=== PATIENT | male | born 1940 | race Hispanic/Latino ===

== ENCOUNTER 2017-10-16 09:12 | Inpatient (IN) | payer MEDICARE ==
[2017-10-16] MEDS ORDERED: NACL 0.9% 500 ML 500 ML IV ONE (09:32)
[2017-10-16] MEDS ORDERED: ZOSYN/NS 4.5GM/100ML 4.5 GM/100 ML VIAL IV ONE (10:09)
[2017-10-16] MEDS ORDERED: NACL 0.9% 1000 ML 1,000 ML IV ONE (10:09)
[2017-10-16] MEDS ORDERED: TYLENOL PR ONE (10:10)
--- NOTE | 2017-10-16 10:15 | Emergency Department Report ---
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 Cholecystectomy and probable appendectomy. Transcribed By: TTR Dictated By: KATTY BENJAMIN JR, MD Electronically Authenticated By: KATTY BENJAMIN JR, MD Signed Date/Time: 10/16/171323 DD/ 20 TD/TT: 10/16/171323 - Medical Decision Making discuss with Dr Odonnell, I presented patient to him , he agreed to admit to his service. Critical Care Time: Yes Critical care time in (mins) excluding proc time.: 45 Critical care attestation.: If time is entered above; I have spent that time in minutes in the direct care of this critically ill patient, excluding procedure time. ED Disposition Clinical Impression: Sepsis, Right lower lobe pneumonia Disposition: DC OP ADMIT IP TO THIS HOSP Is pt being admited?: Yes Condition: Stable Instructions: Bacterial Pneumonia (ED) Referrals: PRIMARY CARE, [Primary Care Provider] - 3-5 Days
[2017-10-16 10:31] LABS: Hematocrit 43.8 % (35.5-45.6); Hemoglobin 14.7 gm/dl (11.8-15.2); Mean Corpuscular HGB Conc 34 % (32-34); Mean Corpuscular Hemoglobin 31 pg (28-32); Mean Corpuscular Volume 91 fl (84-94); Platelet Count 213 K/mm3 (140-440); Red Blood Count 4.81 M/mm3 (3.65-5.03); Red Cell Distribution Width 14.9 % (13.2-15.2); White Blood Count 20.6 K/mm3 (4.5-11.0)
[2017-10-16 10:43] LABS: ISTAT Base Excess -1; ISTAT HCO3 22.8; ISTAT PCO2 33.3 (35-45); ISTAT PH 7.443 (7.35-7.45); ISTAT PO2 87 (80-105); ISTAT SO2 97; ISTAT TCO2 24
[2017-10-16 10:55] LABS: Albumin 3.6 g/dL (3.9-5); Albumin/Globulin Ratio 0.9 %; Calcium 8.9 mg/dL (8.4-10.2); Chloride 106.6 mmol/L (98-107); Magnesium 2.4 mg/dL (1.7-2.3); Potassium 3.9 mmol/L (3.6-5.0); Total Protein 7.5 g/dL (6.3-8.2)
[2017-10-16 11:09] LABS: INR 2.16 (0.87-1.13)
--- NOTE | 2017-10-16 11:18 | XRay Report ---
AP CHEST: HISTORY: Sepsis No comparison. Previous CABG changes are noted. There is poor inspiration. AP view of the chest demonstrates a normal mediastinal and cardiac contour with clear lungs and normal bony and soft tissue structures. IMPRESSION: No acute cardiopulmonary process identified.
--- NOTE | 2017-10-16 11:20 | Cat Scan Report ---
CT HEAD WITHOUT CONTRAST: HISTORY: Altered mental status. TECHNIQUE: Sequential 2.5mm CT images. COMPARISON: none. FINDINGS: No comparison. Mild diffuse cortical volume loss and mild nonspecific chronic white matter changes are identified. No evidence for hemorrhage, mass or extra-axial fluid collection. No large area of acute ischemia is appreciated. Right craniotomy changes are noted, correlate with history. There is a focal area of cortical encephalomalacia in the right frontal lobe which is probably related to surgery. The visualized sinuses and mastoid air cells are well-aerated. IMPRESSION: Volume loss. Chronic white matter changes. Postsurgical changes as described. No acute intracranial process is identified.
[2017-10-16 11:26] LABS: Basophils % (Manual) 0 % (0.0-1.8); Blastocytes % (Manual) 0 %; Diff Status Complete; Eosinophils % (Manual) 0 % (0.0-4.3); Platelet Estimate Consistent w Auto; RBC Morphology Normal
[2017-10-16 11:34] LABS: Urine Drugs of Abuse Note Disclamer
[2017-10-16 11:57] LABS: Bacteria,Urine 1+ /HPF (Negative); Bilirubin,Urine NEG (Negative); Blood,Urine LG (Negative); Ketones,Urine TR mg/dL (Negative); Leukocyte Esterase,Urine NEG (Negative); Mucus,Urine 2+ /HPF; Nitrite,Urine NEG (Negative)
--- NOTE | 2017-10-16 13:28 | Cat Scan Report ---
CT ABDOMEN PELVIS WITHOUT CONTRAST: HISTORY: Abdominal pain, fever, elevated liver enzymes. COMPARISON: none. TECHNIQUE: Helical CT in 1.25mm intervals without IV contrast. Sagittal and coronal reconstructions. FINDINGS: Lung bases: There is mild patchy airspace disease at the right lung base. Right lower lobe pneumonia could be considered. Left lung base is clear. Heart size is normal. Liver: normal. Biliary system: Cholecystectomy. No biliary dilatation. Pancreas: normal. Spleen: normal. Kidneys/ureters/bladder: normal. Adrenal glands: normal. Aorta: Mild diffuse calcifications without aneurysm. Intestines: No evidence for bowel obstruction or focal inflammation. Appendix: Not confidently identified, correlate with surgical history. Pelvic viscera: normal. Musculoskeletal: Mild osteopenia is suspected. Degenerative changes. No fracture or suspicious bony lesion. IMPRESSION: Patchy airspace disease at the right lung base which could represent pneumonia, correlate with the patient's clinical presentation. No acute inflammatory process is appreciated in the abdomen or pelvis. Cholecystectomy and probable appendectomy.
--- NOTE | 2017-10-16 13:38 | History and Physical Report ---
History of Present Illness Chief complaint: confusion, not acting right History of present illness: 77 YO Male resident at [facility] with Dementia, GERD, HLD, CAD, Hypothyroidism, TBI in 2006, Chronic Constipation, Pseudobulbar Effect presents to ED for evaluation. Pt stuporous, and unable to provide history, but history taken from daughter who is at bedside during exam and interview. As per daughter, pt was found to have fever to 102.6 as per [place] staff. Over the past 24 hours, pt has also been increasingly confused with decreased interaction. Upon waking today, the patient was lethargic. EMS notified and patient transported to [facility] for evaluation. Pt seen and evaluated in ED. Pt found to have Aspiration Pneumonia and respiratory failure complicated by Sepsis. Pt is lethargic but is able to protect his airway. Pt treated IAW sepsis protocol as well as supplemental oxygen ,and admitted to medical floor. Past History Past Medical History: CAD, GERD, hyperlipidemia, hypothyroidism, other (Dementia ,TBI in 2006, Chronic Constipation, Pseudobulbar Effect ) Past Surgical History: No surgical history, Other (reviewed) Social history: single. denies: smoking, alcohol abuse, prescription drug abuse Family history: no significant family history (reviewed) Medications and Allergies Allergies Allergy/AdvReac Type Severity Reaction Status Date / Time atorvastatin [From Lipitor] Allergy Unknown Verified 10/16/17 09:25 Home Medications Medication Instructions Recorded Confirmed Last Taken Type Amantadine [Symmetrel] 100 mg PO BID 10/16/17 10/16/17 Unknown History Aspirin [Adult Low Dose Aspirin EC] 81 mg PO QDAY 10/16/17 10/16/17 Unknown History Cholecalciferol (Vitamin D3) 1,000 unit PO QDAY 10/16/17 10/16/17 Unknown History [Vitamin D3] Citalopram [celeXA] 10 mg PO QDAY 10/16/17 10/16/17 Unknown History Divalproex Sodium [Depakote] 250 mg PO QAM 10/16/17 10/16/17 Unknown History Divalproex Sodium [Depakote] 500 mg PO HS 10/16/17 10/16/17 Unknown History Docusate Sodium [Colace] 100 mg PO BID 10/16/17 10/16/17 Unknown History Ezetimibe [Zetia] 10 mg PO QDAY 10/16/17 10/16/17 Unknown History Levothyroxine [Synthroid] 50 mcg PO QDAY 10/16/17 10/16/17 Unknown History Montelukast [Singulair] 10 mg PO DAILY 10/16/17 10/16/17 Unknown History OLANzapine [ZyPREXA] 5 mg PO BID 10/16/17 10/16/17 Unknown History Pantoprazole [Protonix] 40 mg PO QDAY 10/16/17 10/16/17 Unknown History Rosuvastatin Calcium [Crestor] 40 mg PO DAILY 10/16/17 10/16/17 Unknown History Review of Systems ROS unobtainable: due to mental status Exam - Constitutional Vitals: Temp Pulse Resp BP Pulse Ox 102.5 F H 118 H 22 98/68 97 10/16/17 09:55 10/16/17 09:55 10/16/17 10:00 10/16/17 09:55 10/16/17 10:00 General appearance: Present: mild distress - EENT Eyes: Present: PERRL ENT: hearing intact, clear oral mucosa - Neck Neck: Present: supple, normal ROM - Respiratory Respiratory effort: normal Respiratory: bilateral: diminished, rhonchi - Cardiovascular Heart Sounds: Present: S1 & S2. Absent: rub, click - Extremities Extremities: pulses symmetrical, No edema Peripheral Pulses: abnormal (capillary refill greater than 3.5 seconds) - Abdominal General gastrointestinal: Present: soft, non-tender, non-distended, normal bowel sounds Male genitourinary: Present: normal - Integumentary Integumentary: Present: clear, dry, pale - Musculoskeletal Musculoskeletal: generalized weakness - Psychiatric Psychiatric: no intact judgment & insight, no memory intact - Neurologic Neurologic: no gait normal Results - Labs CBC & Chem 7: 10/16/17 09:56 10/16/17 09:56 Labs: Abnormal lab results 10/16/17 10/16/17 10/16/17 Range/Units 09:56 09:56 09:56 WBC 20.6 H (4.5-11.0) K/mm3 Seg Neuts % (Manual) 80.0 H (40.0-70.0) % Lymphocytes % (Manual) 6.0 L (13.4-35.0) % Monocytes % (Manual) 14.0 H (0.0-7.3) % Seg Neutrophils # Man 16.5 H (1.8-7.7) K/mm3 Monocytes # (Manual) 2.9 H (0.0-0.8) K/mm3 PT 25.4 H (12.2-14.9) Sec. INR 2.16 H (0.87-1.13) POC ABG pCO2 (35-45) VBG pH (7.320-7.420) Sodium 149 H (137-145) mmol/L Carbon Dioxide 21 L (22-30) mmol/L BUN 39 H (9-20) mg/dL Creatinine 1.9 H (0.8-1.5) mg/dL Glucose 106 H (75-100) mg/dL Lactic Acid (0.7-2.0) mmol/L Magnesium 2.40 H (1.7-2.3) mg/dL Total Bilirubin 3.00 H (0.1-1.2) mg/dL AST 393 H (5-40) units/L ALT 87 H (7-56) units/L Albumin 3.6 L (3.9-5) g/dL TSH (0.270-4.200) mlU/mL Urine WBC (Auto) (0.0-6.0) /HPF Salicylates (2.8-20.0) mg/dL 10/16/17 10/16/17 10/16/17 Range/Units 09:56 09:56 09:56 WBC (4.5-11.0) K/mm3 Seg Neuts % (Manual) (40.0-70.0) % Lymphocytes % (Manual) (13.4-35.0) % Monocytes % (Manual) (0.0-7.3) % Seg Neutrophils # Man (1.8-7.7) K/mm3 Monocytes # (Manual) (0.0-0.8) K/mm3 PT (12.2-14.9) Sec. INR (0.87-1.13) POC ABG pCO2 (35-45) VBG pH (7.320-7.420) Sodium (137-145) mmol/L Carbon Dioxide (22-30) mmol/L BUN (9-20) mg/dL Creatinine (0.8-1.5) mg/dL Glucose (75-100) mg/dL Lactic Acid 5.60 H* (0.7-2.0) mmol/L Magnesium (1.7-2.3) mg/dL Total Bilirubin (0.1-1.2) mg/dL AST (5-40) units/L ALT (7-56) units/L Albumin (3.9-5) g/dL TSH 4.780 H (0.270-4.200) mlU/mL Urine WBC (Auto) (0.0-6.0) /HPF Salicylates < 0.3 L (2.8-20.0) mg/dL 10/16/17 10/16/17 10/16/17 Range/Units 09:56 10:38 11:30 WBC (4.5-11.0) K/mm3 Seg Neuts % (Manual) (40.0-70.0) % Lymphocytes % (Manual) (13.4-35.0) % Monocytes % (Manual) (0.0-7.3) % Seg Neutrophils # Man (1.8-7.7) K/mm3 Monocytes # (Manual) (0.0-0.8) K/mm3 PT (12.2-14.9) Sec. INR (0.87-1.13) POC ABG pCO2 33.3 L (35-45) VBG pH 7.434 H (7.320-7.420) Sodium (137-145) mmol/L Carbon Dioxide (22-30) mmol/L BUN (9-20) mg/dL Creatinine (0.8-1.5) mg/dL Glucose (75-100) mg/dL Lactic Acid (0.7-2.0) mmol/L Magnesium (1.7-2.3) mg/dL Total Bilirubin (0.1-1.2) mg/dL AST (5-40) units/L ALT (7-56) units/L Albumin (3.9-5) g/dL TSH (0.270-4.200) mlU/mL Urine WBC (Auto) 10.0 H (0.0-6.0) /HPF Salicylates (2.8-20.0) mg/dL 10/16/17 Range/Units 12:05 WBC (4.5-11.0) K/mm3 Seg Neuts % (Manual) (40.0-70.0) % Lymphocytes % (Manual) (13.4-35.0) % Monocytes % (Manual) (0.0-7.3) % Seg Neutrophils # Man (1.8-7.7) K/mm3 Monocytes # (Manual) (0.0-0.8) K/mm3 PT (12.2-14.9) Sec. INR (0.87-1.13) POC ABG pCO2 (35-45) VBG pH (7.320-7.420) Sodium (137-145) mmol/L Carbon Dioxide (22-30) mmol/L BUN (9-20) mg/dL Creatinine (0.8-1.5) mg/dL Glucose (75-100) mg/dL Lactic Acid 5.80 H* (0.7-2.0) mmol/L Magnesium (1.7-2.3) mg/dL Total Bilirubin (0.1-1.2) mg/dL AST (5-40) units/L ALT (7-56) units/L Albumin (3.9-5) g/dL TSH (0.270-4.200) mlU/mL Urine WBC (Auto) (0.0-6.0) /HPF Salicylates (2.8-20.0) mg/dL Assessment and Plan - Patient Problems (1) Sepsis Current Visit: Yes Status: Acute Plan to address problem: Sepsis Protocol: IV abx, serial lactic acid levels, monitor uop q shift, IVF resuscitation, serial cbc, bmp, urinalysis, Chest X ray, blood cultures, (2) Aspiration pneumonia Current Visit: Yes Status: Acute Qualifiers: Laterality: right Lung location: lower lobe of lung Plan to address problem: Pneumonia Protocol: IV abx, aspiration precautions, supplemental oxygen, nebs, blood cultures, chest x ray, pulmonary toilet, (3) ARF (acute renal failure) Current Visit: Yes Status: Acute Qualifiers: Acute renal failure type: with acute tubular necrosis Qualified Code(s): N17.0 - Acute kidney failure with tubular necrosis Plan to address problem: IVF, monitor uop q shift, urine electrolytes. (4) Lactic acidosis Current Visit: Yes Status: Acute Plan to address problem: treat sepsis, ivf resuscitation, serial lactic acid levels (5) DVT prophylaxis Current Visit: Yes Status: Acute Plan to address problem: scd to ble while in bed
[2017-10-16] MEDS ORDERED: PROVENTIL IH PRN (13:39)
[2017-10-16] MEDS ORDERED: TYLENOL PO PRN (13:39)
[2017-10-16] MEDS ORDERED: ZOFRAN IV PRN (13:39)
[2017-10-16] MEDS ORDERED: NACL 0.9% 1000 ML IV ONE (13:41)
[2017-10-16] MEDS: UNASYN/NS 3 GM/100 ML 3 GM/100 ML BAG IV SCH ×2 (16:53→22:38)
[2017-10-17] MEDS: UNASYN/NS 3 GM/100 ML 3 GM/100 ML BAG IV SCH ×4 (03:54→21:43)
--- NOTE | 2017-10-17 07:51 | Progress Note ---
Assessment and Plan Assessment and plan: --lactic acidosis; secondary to sepsis, due to aspiration pneumonia Continue empiric antibiotics, follow cultures, follow lactic acid levels, supportive care --Right-sided aspiration pneumonia Continue current management, swallow evaluation, nothing by mouth status Consider Dobbhoff placement if needed --Metabolic encephalopathy; neurochecks, supportive care --Hypernatremia; secondary to dehydration, D5W, consider free water flushes --Leukocytosis; due to sepsis; due to aspiration pneumonia --Dementia; supportive care --Transaminitis; unknown etiology, closely monitor, GI evaluation if needed --Acute renal failure; due to ATN Closely monitor his renal function, IV fluids, supportive care, avoid nephrotoxic medications --H/O schizophrenia, recurrent psych medications, psych evaluation and recommendations --DVT prophylaxis; SCDs --Continue [facility] --Full CODE STATUS Closely monitor the patient and adjust management as needed Get medical records from [facility] reports that patient was admitted for few weeks and had extensive neuro and psych evaluations Prior to transfer to [facility] History Interval history: Patient seen and examined medical records reviewed Admitted with altered level of consciousness from [place] [id number] status Patient is noncommunicative, confused, family member at the bedside Nurse reports that patient is unable to swallow Will place nothing by mouth status Vital signs reviewed Hospitalist Physical - Constitutional Vitals: Temp Pulse Resp BP Pulse Ox 99.5 F 99 H 18 112/54 96 10/17/17 05:51 10/17/17 05:51 10/17/17 05:51 10/17/17 05:51 10/17/17 07:39 General appearance: Present: mild distress, other (noncommunicative) - EENT Eyes: Present: PERRL, EOM intact - Neck Neck: Present: supple, normal ROM - Respiratory Respiratory effort: normal Respiratory: bilateral: diminished, rhonchi, negative: rales, wheezing - Cardiovascular Rhythm: regular Heart Sounds: Present: S1 & S2 - Extremities Extremities: no ischemia, No edema - Abdominal General gastrointestinal: soft, non-tender, non-distended, normal bowel sounds - Integumentary Integumentary: Present: clear, warm - Psychiatric Psychiatric: other (confused, noncommunicative) - Neurologic Neurologic: other (noncommunicative) Results - Labs CBC & Chem 7: 10/18/17 Unknown 10/18/17 Unknown Labs: Laboratory Last Values WBC 20.6 K/mm3 (4.5-11.0) H 10/16/17 09:56 RBC 4.81 M/mm3 (3.65-5.03) 10/16/17 09:56 Hgb 14.7 gm/dl (11.8-15.2) 10/16/17 09:56 Hct 43.8 % (35.5-45.6) 10/16/17 09:56 MCV 91 fl (84-94) 10/16/17 09:56 MCH 31 pg (28-32) 10/16/17 09:56 MCHC 34 % (32-34) 10/16/17 09:56 RDW 14.9 % (13.2-15.2) 10/16/17 09:56 Plt Count 213 K/mm3 (140-440) 10/16/17 09:56 Add Manual Diff Complete 10/16/17 09:56 Total Counted 100 10/16/17 09:56 Seg Neuts % (Manual) 80.0 % (40.0-70.0) H 10/16/17 09:56 Band Neutrophils % 0 % 10/16/17 09:56 Lymphocytes % (Manual) 6.0 % (13.4-35.0) L 10/16/17 09:56 Reactive Lymphs % (Man) 0 % 10/16/17 09:56 Monocytes % (Manual) 14.0 % (0.0-7.3) H 10/16/17 09:56 Eosinophils % (Manual) 0 % (0.0-4.3) 10/16/17 09:56 Basophils % (Manual) 0 % (0.0-1.8) 10/16/17 09:56 Metamyelocytes % 0 % 10/16/17 09:56 Myelocytes % 0 % 10/16/17 09:56 Promyelocytes % 0 % 10/16/17 09:56 Blast Cells % 0 % 10/16/17 09:56 Nucleated RBC % Not Reportable 10/16/17 09:56 Seg Neutrophils # Man 16.5 K/mm3 (1.8-7.7) H 10/16/17 09:56 Band Neutrophils # 0.0 K/mm3 10/16/17 09:56 Lymphocytes # (Manual) 1.2 K/mm3 (1.2-5.4) 10/16/17 09:56 Abs React Lymphs (Man) 0.0 K/mm3 10/16/17 09:56 Monocytes # (Manual) 2.9 K/mm3 (0.0-0.8) H 10/16/17 09:56 Eosinophils # (Manual) 0.0 K/mm3 (0.0-0.4) 10/16/17 09:56 Basophils # (Manual) 0.0 K/mm3 (0.0-0.1) 10/16/17 09:56 Metamyelocytes # 0.0 K/mm3 10/16/17 09:56 Myelocytes # 0.0 K/mm3 10/16/17 09:56 Promyelocytes # 0.0 K/mm3 10/16/17 09:56 Blast Cells # 0.0 K/mm3 10/16/17 09:56 WBC Morphology Not Reportable 10/16/17 09:56 Hypersegmented Neuts Not Reportable 10/16/17 09:56 Hyposegmented Neuts Not Reportable 10/16/17 09:56 Hypogranular Neuts Not Reportable 10/16/17 09:56 Smudge Cells Not Reportable 10/16/17 09:56 Toxic Granulation Not Reportable 10/16/17 09:56 Toxic Vacuolation Not Reportable 10/16/17 09:56 Dohle Bodies Not Reportable 10/16/17 09:56 Pelger-Huet Anomaly Not Reportable 10/16/17 09:56 Usman Rods Not Reportable 10/16/17 09:56 Platelet Estimate Consistent w auto 10/16/17 09:56 Clumped Platelets Not Reportable 10/16/17 09:56 Plt Clumps, EDTA Not Reportable 10/16/17 09:56 Large Platelets Not Reportable 10/16/17 09:56 Giant Platelets Not Reportable 10/16/17 09:56 Platelet Satelliting Not Reportable 10/16/17 09:56 Plt Morphology Comment Not Reportable 10/16/17 09:56 RBC Morphology Normal 10/16/17 09:56 Dimorphic RBCs Not Reportable 10/16/17 09:56 Polychromasia Not Reportable 10/16/17 09:56 Hypochromasia Not Reportable 10/16/17 09:56 Poikilocytosis Not Reportable 10/16/17 09:56 Anisocytosis Not Reportable 10/16/17 09:56 Microcytosis Not Reportable 10/16/17 09:56 Macrocytosis Not Reportable 10/16/17 09:56 Spherocytes Not Reportable 10/16/17 09:56 Pappenheimer Bodies Not Reportable 10/16/17 09:56 Sickle Cells Not Reportable 10/16/17 09:56 Target Cells Not Reportable 10/16/17 09:56 Tear Drop Cells Not Reportable 10/16/17 09:56 Ovalocytes Not Reportable 10/16/17 09:56 Helmet Cells Not Reportable 10/16/17 09:56 [place] Bodies Not Reportable 10/16/17 09:56 [place] Rings Not Reportable 10/16/17 09:56 [place] Cells Not Reportable 10/16/17 09:56 Bite Cells Not Reportable 10/16/17 09:56 Crenated Cell Not Reportable 10/16/17 09:56 Elliptocytes Not Reportable 10/16/17 09:56 Acanthocytes (Spur) Not Reportable 10/16/17 09:56 Rouleaux Not Reportable 10/16/17 09:56 Hemoglobin C Crystals Not Reportable 10/16/17 09:56 Schistocytes Not Reportable 10/16/17 09:56 Malaria parasites Not Reportable 10/16/17 09:56 Tawanda Bodies Not Reportable 10/16/17 09:56 Hem Pathologist Commnt No 10/16/17 09:56 PT 25.4 Sec. (12.2-14.9) H 10/16/17 09:56 INR 2.16 (0.87-1.13) H 10/16/17 09:56 POC ABG pH 7.443 (7.35-7.45) 10/16/17 10:38 POC ABG pCO2 33.3 (35-45) L 10/16/17 10:38 POC ABG pO2 87 (80-105) 10/16/17 10:38 POC ABG HCO3 22.8 10/16/17 10:38 POC ABG Total CO2 24 10/16/17 10:38 POC ABG O2 Sat 97 10/16/17 10:38 POC ABG Base Excess -1 10/16/17 10:38 VBG pH 7.434 (7.320-7.420) H 10/16/17 09:56 FiO2 2.5 % 10/16/17 10:38 Sodium 149 mmol/L (137-145) H 10/16/17 09:56 Potassium 3.9 mmol/L (3.6-5.0) 10/16/17 09:56 Chloride 106.6 mmol/L (98-107) 10/16/17 09:56 Carbon Dioxide 21 mmol/L (22-30) L 10/16/17 09:56 Anion Gap 25 mmol/L 10/16/17 09:56 BUN 39 mg/dL (9-20) H 10/16/17 09:56 Creatinine 1.9 mg/dL (0.8-1.5) H 10/16/17 09:56 Estimated GFR 35 ml/min 10/16/17 09:56 BUN/Creatinine Ratio 21 % 10/16/17 09:56 Glucose 106 mg/dL (75-100) H 10/16/17 09:56 POC Glucose 98 (70-105) 10/16/17 11:15 Lactic Acid 2.50 mmol/L (0.7-2.0) H* 10/16/17 19:52 Calcium 8.9 mg/dL (8.4-10.2) 10/16/17 09:56 Magnesium 2.40 mg/dL (1.7-2.3) H 10/16/17 09:56 Total Bilirubin 3.00 mg/dL (0.1-1.2) H 10/16/17 09:56 AST 393 units/L (5-40) H 10/16/17 09:56 ALT 87 units/L (7-56) H 10/16/17 09:56 Alkaline Phosphatase 68 units/L (35-129) 10/16/17 09:56 Total Protein 7.5 g/dL (6.3-8.2) 10/16/17 09:56 Albumin 3.6 g/dL (3.9-5) L 10/16/17 09:56 Albumin/Globulin Ratio 0.9 % 10/16/17 09:56 TSH 4.780 mlU/mL (0.270-4.200) H 10/16/17 09:56 Urine Color Ana (Yellow) 10/16/17 11:30 Urine Turbidity Clear (Clear) 10/16/17 11:30 Urine pH 5.0 (5.0-7.0) 10/16/17 11:30 Ur Specific [place] 1.026 (1.003-1.030) 10/16/17 11:30 Urine Protein 100 mg/dl mg/dL (Negative) 10/16/17 11:30 Urine Glucose (UA) Neg mg/dL (Negative) 10/16/17 11:30 Urine Ketones Tr mg/dL (Negative) 10/16/17 11:30 Urine Blood Lg (Negative) 10/16/17 11:30 Urine Nitrite Neg (Negative) 10/16/17 11:30 Urine Bilirubin Neg (Negative) 10/16/17 11:30 Urine Urobilinogen 2.0 mg/dL (<2.0) 10/16/17 11:30 Ur Leukocyte Esterase Neg (Negative) 10/16/17 11:30 Urine WBC (Auto) 10.0 /HPF (0.0-6.0) H 10/16/17 11:30 Urine RBC (Auto) 14.0 /HPF (0.0-6.0) 10/16/17 11:30 U Epithel Cells (Auto) 2.0 /HPF (0-13.0) 10/16/17 11:30 Urine Bacteria (Auto) 1+ /HPF (Negative) 10/16/17 11:30 Hyaline Casts 3 /LPF 10/16/17 11:30 Urine Mucus 2+ /HPF 10/16/17 11:30 Salicylates < 0.3 mg/dL (2.8-20.0) L 10/16/17 09:56 Urine Opiates Screen Presumptive negative 10/16/17 11:30 Urine Methadone Screen Presumptive negative 10/16/17 11:30 Acetaminophen < 15.0 ug/mL (10.0-30.0) 10/16/17 09:56 Ur Barbiturates Screen Presumptive negative 10/16/17 11:30 Ur Phencyclidine Scrn Presumptive negative 10/16/17 11:30 Ur Amphetamines Screen Presumptive negative 10/16/17 11:30 U Benzodiazepines Scrn Presumptive negative 10/16/17 11:30 Urine Cocaine Screen Presumptive negative 10/16/17 11:30 U Marijuana (THC) Screen Presumptive negative 10/16/17 11:30 Drugs of Abuse Note Disclamer 10/16/17 11:30 Plasma/Serum Alcohol < 0.01 gm% (0-0.07) 10/16/17 09:56
[2017-10-17 08:28] LABS: Basophils % (Auto) 0.1 % (0.0-1.8); Hemoglobin 12.9 gm/dl (11.8-15.2); Mean Corpuscular HGB Conc 32 % (32-34); Mean Corpuscular Hemoglobin 29 pg (28-32); Mean Corpuscular Volume 91 fl (84-94); Platelet Count 174 K/mm3 (140-440); Red Cell Distribution Width 14.8 % (13.2-15.2); White Blood Count 16.9 K/mm3 (4.5-11.0)
[2017-10-17 08:31] LABS: Alanine Aminotransferase 78 units/L (7-56); Albumin 2.7 g/dL (3.9-5); Albumin/Globulin Ratio 0.8 %; Alkaline Phosphatase 56 units/L (35-129); Anion Gap 16 mmol/L; BUN/Creatinine Ratio 34; Blood Urea Nitrogen 37 mg/dL (9-20); Calcium 8.2 mg/dL (8.4-10.2); Carbon Dioxide 26 mmol/L (22-30); Chloride 116.4 mmol/L (98-107); Glucose 111 mg/dL (75-100); Sodium 154 mmol/L (137-145); Total Protein 6.1 g/dL (6.3-8.2)
[2017-10-17] MEDS ORDERED: NON-FORMULARY (Cholecalciferol (Vitamin D3) [Vitamin D3] 1,000 UNIT) PO SCH (10:00)
[2017-10-17] MEDS ORDERED: NON-FORMULARY (Rosuvastatin Calcium [Crestor] 40 MG) PO SCH (10:00)
[2017-10-17] MEDS: HALFPRIN EC PO SCH ×2 (11:16→15:59)
[2017-10-17] MEDS: COLACE PO SCH ×3 (11:16→22:31)
[2017-10-17] MEDS: celeXA PO SCH ×2 (11:17→15:57)
[2017-10-17] MEDS: SINGULAIR PO SCH ×2 (11:17→15:59)
[2017-10-17] MEDS: ZETIA PO SCH ×2 (11:21→15:59)
[2017-10-17] MEDS: SYNTHROID PO SCH ×2 (11:52→15:59)
[2017-10-17] MEDS: SYMMETREL PO SCH ×3 (11:55→22:31)
[2017-10-17] MEDS ORDERED: PNEUMOVAX 23 IM ONE (12:00)
[2017-10-17] MEDS ORDERED: Fluarix Quad 2017-2018(36 MOS+ IM ONE (12:00)
[2017-10-17] MEDS: VITAMIN D3 PO SCH (14:00)
[2017-10-17] MEDS: D5W 1,000 ML IV SCH (15:05)
[2017-10-17] MEDS ORDERED: TYLENOL PR STA (20:53)
[2017-10-18] MEDS: SYNTHROID PO SCH (05:45)
[2017-10-18 06:02] LABS: Basophils % (Auto) 0.4 % (0.0-1.8); Eosinophils % (Auto) 0.4 % (0.0-4.3); Hematocrit 40.9 % (35.5-45.6); Hemoglobin 13.3 gm/dl (11.8-15.2); Mean Corpuscular HGB Conc 32 % (32-34); Mean Corpuscular Hemoglobin 30 pg (28-32); Mean Corpuscular Volume 93 fl (84-94); Platelet Count 177 K/mm3 (140-440); Red Blood Count 4.42 M/mm3 (3.65-5.03); White Blood Count 12.2 K/mm3 (4.5-11.0)
[2017-10-18 06:40] LABS: Alanine Aminotransferase 71 units/L (7-56); Albumin 2.3 g/dL (3.9-5); Albumin/Globulin Ratio 0.6 %; Alkaline Phosphatase 52 units/L (35-129); Anion Gap 15 mmol/L; BUN/Creatinine Ratio 37; Blood Urea Nitrogen 37 mg/dL (9-20); Calcium 8.1 mg/dL (8.4-10.2); Carbon Dioxide 23 mmol/L (22-30); Chloride 117.2 mmol/L (98-107); Glucose 116 mg/dL (75-100); Potassium 4.1 mmol/L (3.6-5.0); Sodium 151 mmol/L (137-145); Total Protein 6.1 g/dL (6.3-8.2)
[2017-10-18] MEDS: D5W 1,000 ML IV SCH ×2 (06:54→22:20)
--- NOTE | 2017-10-18 07:48 | Progress Note ---
Assessment and Plan Assessment and plan: --Poor oral intake/possible dysphagia Swallow evaluation requested, consider modified patient swallow Possible PEG placement if abnormal, continue IV fluids --lactic acidosis; corrected ,secondary to sepsis, due to aspiration pneumonia Continue empiric antibiotics, follow cultures, --Right-sided aspiration pneumonia Continue current management, swallow evaluation, nothing by mouth status Consider Dobbhoff placement if needed --Metabolic encephalopathy; neurochecks, supportive care --Hypernatremia; secondary to dehydration, D5W, consider free water therapy oral /Dobbhoff --Leukocytosis; due to sepsis; trending down --Dementia; supportive care --Right hip pain; x-ray suspicion joint effusion, Physical therapy, consider orthopedic if needed --Transaminitis; trending down, monitor --Acute renal failure; due to ATN, trending down, continue IV fluids, avoid nephrotoxic medications --H/O schizophrenia, recurrent psych medications, psych evaluation and recommendations --DVT prophylaxis; SCDs --Continue 1013 --Full CODE STATUS Closely monitor the patient and adjust management as needed Get medical records from [place] , Plan of care discussed with the patient's , answered all her questions Pending psych evaluation History Interval history: Patient seen and evaluated this morning medical records reviewed Patient is encephalopathy, and confused, Swallow evaluation pending is at the bedside Hospitalist Physical - Constitutional Vitals: Temp Pulse Resp BP Pulse Ox 98.9 F 66 20 110/63 96 10/18/17 05:42 10/18/17 05:42 10/18/17 05:42 10/18/17 05:42 10/18/17 07:10 General appearance: Present: no acute distress, other (confused and agitated) - EENT Eyes: Present: PERRL, EOM intact - Neck Neck: Present: supple - Respiratory Respiratory effort: normal Respiratory: bilateral: diminished, negative: rales, rhonchi, wheezing - Cardiovascular Rhythm: regular Heart Sounds: Present: S1 & S2 - Extremities Extremities: no ischemia, No edema - Abdominal General gastrointestinal: soft, non-tender, non-distended, normal bowel sounds - Integumentary Integumentary: Present: clear, warm - Psychiatric Psychiatric: appropriate mood/affect, cooperative - Neurologic Neurologic: CNII-XII intact, moves all extremities Results - Labs CBC & Chem 7: 10/18/17 Unknown 10/18/17 Unknown Labs: Laboratory Last Values WBC 12.2 K/mm3 (4.5-11.0) H 10/18/17 Unknown RBC 4.42 M/mm3 (3.65-5.03) 10/18/17 Unknown Hgb 13.3 gm/dl (11.8-15.2) 10/18/17 Unknown Hct 40.9 % (35.5-45.6) 10/18/17 Unknown MCV 93 fl (84-94) 10/18/17 Unknown MCH 30 pg (28-32) 10/18/17 Unknown MCHC 32 % (32-34) 10/18/17 Unknown RDW 15.0 % (13.2-15.2) 10/18/17 Unknown Plt Count 177 K/mm3 (140-440) 10/18/17 Unknown Lymph % (Auto) 11.9 % (13.4-35.0) L 10/18/17 Unknown [place] % (Auto) 10.0 % (0.0-7.3) H 10/18/17 Unknown Eos % (Auto) 0.4 % (0.0-4.3) 10/18/17 Unknown Baso % (Auto) 0.4 % (0.0-1.8) 10/18/17 Unknown Lymph # 1.5 K/mm3 (1.2-5.4) 10/18/17 Unknown [place] # 1.2 K/mm3 (0.0-0.8) H 10/18/17 Unknown Eos # 0.0 K/mm3 (0.0-0.4) 10/18/17 Unknown Baso # 0.0 K/mm3 (0.0-0.1) 10/18/17 Unknown Add Manual Diff Complete 10/16/17 09:56 Total Counted 100 10/16/17 09:56 Seg Neutrophils % 77.3 % (40.0-70.0) H 10/18/17 Unknown Seg Neuts % (Manual) 80.0 % (40.0-70.0) H 10/16/17 09:56 Band Neutrophils % 0 % 10/16/17 09:56 Lymphocytes % (Manual) 6.0 % (13.4-35.0) L 10/16/17 09:56 Reactive Lymphs % (Man) 0 % 10/16/17 09:56 Monocytes % (Manual) 14.0 % (0.0-7.3) H 10/16/17 09:56 Eosinophils % (Manual) 0 % (0.0-4.3) 10/16/17 09:56 Basophils % (Manual) 0 % (0.0-1.8) 10/16/17 09:56 Metamyelocytes % 0 % 10/16/17 09:56 Myelocytes % 0 % 10/16/17 09:56 Promyelocytes % 0 % 10/16/17 09:56 Blast Cells % 0 % 10/16/17 09:56 Nucleated RBC % Not Reportable 10/16/17 09:56 Seg Neutrophils # 9.4 K/mm3 (1.8-7.7) H 10/18/17 Unknown Seg Neutrophils # Man 16.5 K/mm3 (1.8-7.7) H 10/16/17 09:56 Band Neutrophils # 0.0 K/mm3 10/16/17 09:56 Lymphocytes # (Manual) 1.2 K/mm3 (1.2-5.4) 10/16/17 09:56 Abs React Lymphs (Man) 0.0 K/mm3 10/16/17 09:56 Monocytes # (Manual) 2.9 K/mm3 (0.0-0.8) H 10/16/17 09:56 Eosinophils # (Manual) 0.0 K/mm3 (0.0-0.4) 10/16/17 09:56 Basophils # (Manual) 0.0 K/mm3 (0.0-0.1) 10/16/17 09:56 Metamyelocytes # 0.0 K/mm3 10/16/17 09:56 Myelocytes # 0.0 K/mm3 10/16/17 09:56 Promyelocytes # 0.0 K/mm3 10/16/17 09:56 Blast Cells # 0.0 K/mm3 10/16/17 09:56 WBC Morphology Not Reportable 10/16/17 09:56 Hypersegmented Neuts Not Reportable 10/16/17 09:56 Hyposegmented Neuts Not Reportable 10/16/17 09:56 Hypogranular Neuts Not Reportable 10/16/17 09:56 Smudge Cells Not Reportable 10/16/17 09:56 Toxic Granulation Not Reportable 10/16/17 09:56 Toxic Vacuolation Not Reportable 10/16/17 09:56 Dohle Bodies Not Reportable 10/16/17 09:56 Pelger-Huet Anomaly Not Reportable 10/16/17 09:56 Usman Rods Not Reportable 10/16/17 09:56 Platelet Estimate Consistent w auto 10/16/17 09:56 Clumped Platelets Not Reportable 10/16/17 09:56 Plt Clumps, EDTA Not Reportable 10/16/17 09:56 Large Platelets Not Reportable 10/16/17 09:56 Giant Platelets Not Reportable 10/16/17 09:56 Platelet Satelliting Not Reportable 10/16/17 09:56 Plt Morphology Comment Not Reportable 10/16/17 09:56 RBC Morphology Normal 10/16/17 09:56 Dimorphic RBCs Not Reportable 10/16/17 09:56 Polychromasia Not Reportable 10/16/17 09:56 Hypochromasia Not Reportable 10/16/17 09:56 Poikilocytosis Not Reportable 10/16/17 09:56 Anisocytosis Not Reportable 10/16/17 09:56 Microcytosis Not Reportable 10/16/17 09:56 Macrocytosis Not Reportable 10/16/17 09:56 Spherocytes Not Reportable 10/16/17 09:56 Pappenheimer Bodies Not Reportable 10/16/17 09:56 Sickle Cells Not Reportable 10/16/17 09:56 Target Cells Not Reportable 10/16/17 09:56 Tear Drop Cells Not Reportable 10/16/17 09:56 Ovalocytes Not Reportable 10/16/17 09:56 Helmet Cells Not Reportable 10/16/17 09:56 [place] Bodies Not Reportable 10/16/17 09:56 [place] Rings Not Reportable 10/16/17 09:56 [place]ianne Cells Not Reportable 10/16/17 09:56 Bite Cells Not Reportable 10/16/17 09:56 Crenated Cell Not Reportable 10/16/17 09:56 Elliptocytes Not Reportable 10/16/17 09:56 Acanthocytes (Spur) Not Reportable 10/16/17 09:56 Rouleaux Not Reportable 10/16/17 09:56 Hemoglobin C Crystals Not Reportable 10/16/17 09:56 Schistocytes Not Reportable 10/16/17 09:56 Malaria parasites Not Reportable 10/16/17 09:56 T[place]anda Bodies Not Reportable 10/16/17 09:56 Hem Pathologist Commnt No 10/16/17 09:56 PT 25.4 Sec. (12.2-14.9) H 10/16/17 09:56 INR 2.16 (0.87-1.13) H 10/16/17 09:56 POC ABG pH 7.443 (7.35-7.45) 10/16/17 10:38 POC ABG pCO2 33.3 (35-45) L 10/16/17 10:38 POC ABG pO2 87 (80-105) 10/16/17 10:38 POC ABG HCO3 22.8 10/16/17 10:38 POC ABG Total CO2 24 10/16/17 10:38 POC ABG O2 Sat 97 10/16/17 10:38 POC ABG Base Excess -1 10/16/17 10:38 VBG pH 7.434 (7.320-7.420) H 10/16/17 09:56 FiO2 2.5 % 10/16/17 10:38 Sodium 151 mmol/L (137-145) H 10/18/17 Unknown Potassium 4.1 mmol/L (3.6-5.0) 10/18/17 Unknown Chloride 117.2 mmol/L (98-107) H 10/18/17 Unknown Carbon Dioxide 23 mmol/L (22-30) 10/18/17 Unknown Anion Gap 15 mmol/L 10/18/17 Unknown BUN 37 mg/dL (9-20) H 10/18/17 Unknown Creatinine 1.0 mg/dL (0.8-1.5) 10/18/17 Unknown Estimated GFR > 60 ml/min 10/18/17 Unknown BUN/Creatinine Ratio 37 % 10/18/17 Unknown Glucose 116 mg/dL (75-100) H 10/18/17 Unknown POC Glucose 98 (70-105) 10/16/17 11:15 Lactic Acid 1.60 mmol/L (0.7-2.0) 10/17/17 07:49 Calcium 8.1 mg/dL (8.4-10.2) L 10/18/17 Unknown Magnesium 2.60 mg/dL (1.7-2.3) H 10/18/17 Unknown Total Bilirubin 2.10 mg/dL (0.1-1.2) H 10/18/17 Unknown AST 218 units/L (5-40) H 10/18/17 Unknown ALT 71 units/L (7-56) H 10/18/17 Unknown Alkaline Phosphatase 52 units/L (35-129) 10/18/17 Unknown Total Protein 6.1 g/dL (6.3-8.2) L 10/18/17 Unknown Albumin 2.3 g/dL (3.9-5) L 10/18/17 Unknown Albumin/Globulin Ratio 0.6 % 10/18/17 Unknown TSH 4.780 mlU/mL (0.270-4.200) H 10/16/17 09:56 Urine Color Ana (Yellow) 10/16/17 11:30 Urine Turbidity Clear (Clear) 10/16/17 11:30 Urine pH 5.0 (5.0-7.0) 10/16/17 11:30 Ur Specific [place] 1.026 (1.003-1.030) 10/16/17 11:30 Urine Protein 100 mg/dl mg/dL (Negative) 10/16/17 11:30 Urine Glucose (UA) Neg mg/dL (Negative) 10/16/17 11:30 Urine Ketones Tr mg/dL (Negative) 10/16/17 11:30 Urine Blood Lg (Negative) 10/16/17 11:30 Urine Nitrite Neg (Negative) 10/16/17 11:30 Urine Bilirubin Neg (Negative) 10/16/17 11:30 Urine Urobilinogen 2.0 mg/dL (<2.0) 10/16/17 11:30 Ur Leukocyte Esterase Neg (Negative) 10/16/17 11:30 Urine WBC (Auto) 10.0 /HPF (0.0-6.0) H 10/16/17 11:30 Urine RBC (Auto) 14.0 /HPF (0.0-6.0) 10/16/17 11:30 U Epithel Cells (Auto) 2.0 /HPF (0-13.0) 10/16/17 11:30 Urine Bacteria (Auto) 1+ /HPF (Negative) 10/16/17 11:30 Hyaline Casts 3 /LPF 10/16/17 11:30 Urine Mucus 2+ /HPF 10/16/17 11:30 Salicylates < 0.3 mg/dL (2.8-20.0) L 10/16/17 09:56 Urine Opiates Screen Presumptive negative 10/16/17 11:30 Urine Methadone Screen Presumptive negative 10/16/17 11:30 Acetaminophen < 15.0 ug/mL (10.0-30.0) 10/16/17 09:56 Ur Barbiturates Screen Presumptive negative 10/16/17 11:30 Ur Phencyclidine Scrn Presumptive negative 10/16/17 11:30 Ur Amphetamines Screen Presumptive negative 10/16/17 11:30 U Benzodiazepines Scrn Presumptive negative 10/16/17 11:30 Urine Cocaine Screen Presumptive negative 10/16/17 11:30 U Marijuana (THC) Screen Presumptive negative 10/16/17 11:30 Drugs of Abuse Note Disclamer 10/16/17 11:30 Plasma/Serum Alcohol < 0.01 gm% (0-0.07) 10/16/17 09:56
--- NOTE | 2017-10-18 08:33 | XRay Report ---
Single view pelvis: History: Pain/swelling right hip. Findings: No fracture or dislocation. Suspicion of joint effusion right hip. Mild arthritic changes bilateral hips. Impression: Findings as detailed above.
[2017-10-18] MEDS: celeXA PO SCH (10:08)
[2017-10-18] MEDS: COLACE PO SCH ×2 (10:08→21:31)
[2017-10-18] MEDS: VITAMIN D3 PO SCH (10:09)
[2017-10-18] MEDS: HALFPRIN EC PO SCH (10:09)
[2017-10-18] MEDS: SINGULAIR PO SCH (10:09)
[2017-10-18] MEDS: SYMMETREL PO SCH ×2 (10:09→21:33)
[2017-10-18] MEDS: ZETIA PO SCH (10:09)
[2017-10-18] MEDS: UNASYN/NS 3 GM/100 ML 3 GM/100 ML BAG IV SCH ×3 (10:42→21:32)
[2017-10-18] MEDS: HALDOL IM PRN ×2 (15:49→21:31)
[2017-10-19] MEDS: UNASYN/NS 3 GM/100 ML 3 GM/100 ML BAG IV SCH ×3 (02:51→18:48)
[2017-10-19] MEDS: SYNTHROID PO SCH (06:57)
--- NOTE | 2017-10-19 08:55 | Progress Note ---
Assessment and Plan Assessment and plan: --Poor oral intake/possible dysphagia abormal Swallow evaluation therapist recommended modified barium swallow Possible PEG placement if abnormal, continue IV fluids --lactic acidosis; corrected ,secondary to sepsis, due to aspiration pneumonia Continue empiric antibiotics, follow cultures, --Right-sided aspiration pneumonia Continue current management, swallow evaluation, nothing by mouth status Consider Dobbhoff placement if needed --Metabolic encephalopathy; neurochecks, mild improvement --Hypernatremia; secondary to dehydration, D5W, consider free water therapy oral /Dobbhoff --Leukocytosis; due to sepsis; trending down --Dementia; supportive care --Right hip pain; x-ray suspicion joint effusion, Physical therapy, consider orthopedic if needed --Transaminitis; trending down, monitor --Acute renal failure; due to ATN, trending down, continue IV fluids, avoid nephrotoxic medications --H/O schizophrenia, recurrent psych medications, psych evaluation and recommendations --DVT prophylaxis; SCDs --Continue 1013 --Full CODE STATUS follow modified barium swallow study PT OT Discharge planning per case management, possible placement History Interval history: Continued for modified barium swallow today Speech therapist following the patient Patient is more alert today responding to simple questions confused is at the bedside Hospitalist Physical - Constitutional Vitals: Temp Pulse Resp BP Pulse Ox 97.7 F 65 20 112/75 96 10/19/17 07:48 10/19/17 07:48 10/19/17 07:48 10/19/17 07:48 10/19/17 07:48 General appearance: Present: no acute distress, cachectic, other (dehydrated) - EENT Eyes: Present: PERRL, EOM intact - Neck Neck: Present: supple, normal ROM - Respiratory Respiratory effort: normal Respiratory: bilateral: diminished, negative: rales, rhonchi, wheezing - Cardiovascular Rhythm: regular Heart Sounds: Present: S1 & S2 - Extremities Extremities: no ischemia, No edema - Abdominal General gastrointestinal: soft, non-tender, non-distended, normal bowel sounds - Integumentary Integumentary: Present: clear, warm - Psychiatric Psychiatric: other (infused/dementia) - Neurologic Neurologic: moves all extremities Results - Labs CBC & Chem 7: 10/18/17 Unknown 10/19/17 09:15 Labs: Laboratory Last Values WBC 12.2 K/mm3 (4.5-11.0) H 10/18/17 Unknown RBC 4.42 M/mm3 (3.65-5.03) 10/18/17 Unknown Hgb 13.3 gm/dl (11.8-15.2) 10/18/17 Unknown Hct 40.9 % (35.5-45.6) 10/18/17 Unknown MCV 93 fl (84-94) 10/18/17 Unknown MCH 30 pg (28-32) 10/18/17 Unknown MCHC 32 % (32-34) 10/18/17 Unknown RDW 15.0 % (13.2-15.2) 10/18/17 Unknown Plt Count 177 K/mm3 (140-440) 10/18/17 Unknown Lymph % (Auto) 11.9 % (13.4-35.0) L 10/18/17 Unknown [place] % (Auto) 10.0 % (0.0-7.3) H 10/18/17 Unknown Eos % (Auto) 0.4 % (0.0-4.3) 10/18/17 Unknown Baso % (Auto) 0.4 % (0.0-1.8) 10/18/17 Unknown Lymph # 1.5 K/mm3 (1.2-5.4) 10/18/17 Unknown [place] # 1.2 K/mm3 (0.0-0.8) H 10/18/17 Unknown Eos # 0.0 K/mm3 (0.0-0.4) 10/18/17 Unknown Baso # 0.0 K/mm3 (0.0-0.1) 10/18/17 Unknown Add Manual Diff Complete 10/16/17 09:56 Total Counted 100 10/16/17 09:56 Seg Neutrophils % 77.3 % (40.0-70.0) H 10/18/17 Unknown Seg Neuts % (Manual) 80.0 % (40.0-70.0) H 10/16/17 09:56 Band Neutrophils % 0 % 10/16/17 09:56 Lymphocytes % (Manual) 6.0 % (13.4-35.0) L 10/16/17 09:56 Reactive Lymphs % (Man) 0 % 10/16/17 09:56 Monocytes % (Manual) 14.0 % (0.0-7.3) H 10/16/17 09:56 Eosinophils % (Manual) 0 % (0.0-4.3) 10/16/17 09:56 Basophils % (Manual) 0 % (0.0-1.8) 10/16/17 09:56 Metamyelocytes % 0 % 10/16/17 09:56 Myelocytes % 0 % 10/16/17 09:56 Promyelocytes % 0 % 10/16/17 09:56 Blast Cells % 0 % 10/16/17 09:56 Nucleated RBC % Not Reportable 10/16/17 09:56 Seg Neutrophils # 9.4 K/mm3 (1.8-7.7) H 10/18/17 Unknown Seg Neutrophils # Man 16.5 K/mm3 (1.8-7.7) H 10/16/17 09:56 Band Neutrophils # 0.0 K/mm3 10/16/17 09:56 Lymphocytes # (Manual) 1.2 K/mm3 (1.2-5.4) 10/16/17 09:56 Abs React Lymphs (Man) 0.0 K/mm3 10/16/17 09:56 Monocytes # (Manual) 2.9 K/mm3 (0.0-0.8) H 10/16/17 09:56 Eosinophils # (Manual) 0.0 K/mm3 (0.0-0.4) 10/16/17 09:56 Basophils # (Manual) 0.0 K/mm3 (0.0-0.1) 10/16/17 09:56 Metamyelocytes # 0.0 K/mm3 10/16/17 09:56 Myelocytes # 0.0 K/mm3 10/16/17 09:56 Promyelocytes # 0.0 K/mm3 10/16/17 09:56 Blast Cells # 0.0 K/mm3 10/16/17 09:56 WBC Morphology Not Reportable 10/16/17 09:56 Hypersegmented Neuts Not Reportable 10/16/17 09:56 Hyposegmented Neuts Not Reportable 10/16/17 09:56 Hypogranular Neuts Not Reportable 10/16/17 09:56 Smudge Cells Not Reportable 10/16/17 09:56 Toxic Granulation Not Reportable 10/16/17 09:56 Toxic Vacuolation Not Reportable 10/16/17 09:56 Dohle Bodies Not Reportable 10/16/17 09:56 Pelger-Huet Anomaly Not Reportable 10/16/17 09:56 Usman Rods Not Reportable 10/16/17 09:56 Platelet Estimate Consistent w auto 10/16/17 09:56 Clumped Platelets Not Reportable 10/16/17 09:56 Plt Clumps, EDTA Not Reportable 10/16/17 09:56 Large Platelets Not Reportable 10/16/17 09:56 Giant Platelets Not Reportable 10/16/17 09:56 Platelet Satelliting Not Reportable 10/16/17 09:56 Plt Morphology Comment Not Reportable 10/16/17 09:56 RBC Morphology Normal 10/16/17 09:56 Dimorphic RBCs Not Reportable 10/16/17 09:56 Polychromasia Not Reportable 10/16/17 09:56 Hypochromasia Not Reportable 10/16/17 09:56 Poikilocytosis Not Reportable 10/16/17 09:56 Anisocytosis Not Reportable 10/16/17 09:56 Microcytosis Not Reportable 10/16/17 09:56 Macrocytosis Not Reportable 10/16/17 09:56 Spherocytes Not Reportable 10/16/17 09:56 Pappenheimer Bodies Not Reportable 10/16/17 09:56 Sickle Cells Not Reportable 10/16/17 09:56 Target Cells Not Reportable 10/16/17 09:56 Tear Drop Cells Not Reportable 10/16/17 09:56 Ovalocytes Not Reportable 10/16/17 09:56 Helmet Cells Not Reportable 10/16/17 09:56 [place] Bodies Not Reportable 10/16/17 09:56 [place] Rings Not Reportable 10/16/17 09:56 [place] Cells Not Reportable 10/16/17 09:56 Bite Cells Not Reportable 10/16/17 09:56 Crenated Cell Not Reportable 10/16/17 09:56 Elliptocytes Not Reportable 10/16/17 09:56 Acanthocytes (Spur) Not Reportable 10/16/17 09:56 Rouleaux Not Reportable 10/16/17 09:56 Hemoglobin C Crystals Not Reportable 10/16/17 09:56 Schistocytes Not Reportable 10/16/17 09:56 Malaria parasites Not Reportable 10/16/17 09:56 Tawanda Bodies Not Reportable 10/16/17 09:56 Hem Pathologist Commnt No 10/16/17 09:56 PT 25.4 Sec. (12.2-14.9) H 10/16/17 09:56 INR 2.16 (0.87-1.13) H 10/16/17 09:56 POC ABG pH 7.443 (7.35-7.45) 10/16/17 10:38 POC ABG pCO2 33.3 (35-45) L 10/16/17 10:38 POC ABG pO2 87 (80-105) 10/16/17 10:38 POC ABG HCO3 22.8 10/16/17 10:38 POC ABG Total CO2 24 10/16/17 10:38 POC ABG O2 Sat 97 10/16/17 10:38 POC ABG Base Excess -1 10/16/17 10:38 VBG pH 7.434 (7.320-7.420) H 10/16/17 09:56 FiO2 2.5 % 10/16/17 10:38 Sodium 151 mmol/L (137-145) H 10/18/17 Unknown Potassium 4.1 mmol/L (3.6-5.0) 10/18/17 Unknown Chloride 117.2 mmol/L (98-107) H 10/18/17 Unknown Carbon Dioxide 23 mmol/L (22-30) 10/18/17 Unknown Anion Gap 15 mmol/L 10/18/17 Unknown BUN 37 mg/dL (9-20) H 10/18/17 Unknown Creatinine 1.0 mg/dL (0.8-1.5) 10/18/17 Unknown Estimated GFR > 60 ml/min 10/18/17 Unknown BUN/Creatinine Ratio 37 % 10/18/17 Unknown Glucose 116 mg/dL (75-100) H 10/18/17 Unknown POC Glucose 98 (70-105) 10/16/17 11:15 Lactic Acid 1.60 mmol/L (0.7-2.0) 10/17/17 07:49 Calcium 8.1 mg/dL (8.4-10.2) L 10/18/17 Unknown Magnesium 2.60 mg/dL (1.7-2.3) H 10/18/17 Unknown Total Bilirubin 2.10 mg/dL (0.1-1.2) H 10/18/17 Unknown AST 218 units/L (5-40) H 10/18/17 Unknown ALT 71 units/L (7-56) H 10/18/17 Unknown Alkaline Phosphatase 52 units/L (35-129) 10/18/17 Unknown Total Protein 6.1 g/dL (6.3-8.2) L 10/18/17 Unknown Albumin 2.3 g/dL (3.9-5) L 10/18/17 Unknown Albumin/Globulin Ratio 0.6 % 10/18/17 Unknown TSH 4.780 mlU/mL (0.270-4.200) H 10/16/17 09:56 Urine Color Ana (Yellow) 10/16/17 11:30 Urine Turbidity Clear (Clear) 10/16/17 11:30 Urine pH 5.0 (5.0-7.0) 10/16/17 11:30 Ur Specific [place] 1.026 (1.003-1.030) 10/16/17 11:30 Urine Protein 100 mg/dl mg/dL (Negative) 10/16/17 11:30 Urine Glucose (UA) Neg mg/dL (Negative) 10/16/17 11:30 Urine Ketones Tr mg/dL (Negative) 10/16/17 11:30 Urine Blood Lg (Negative) 10/16/17 11:30 Urine Nitrite Neg (Negative) 10/16/17 11:30 Urine Bilirubin Neg (Negative) 10/16/17 11:30 Urine Urobilinogen 2.0 mg/dL (<2.0) 10/16/17 11:30 Ur Leukocyte Esterase Neg (Negative) 10/16/17 11:30 Urine WBC (Auto) 10.0 /HPF (0.0-6.0) H 10/16/17 11:30 Urine RBC (Auto) 14.0 /HPF (0.0-6.0) 10/16/17 11:30 U Epithel Cells (Auto) 2.0 /HPF (0-13.0) 10/16/17 11:30 Urine Bacteria (Auto) 1+ /HPF (Negative) 10/16/17 11:30 Hyaline Casts 3 /LPF 10/16/17 11:30 Urine Mucus 2+ /HPF 10/16/17 11:30 Salicylates < 0.3 mg/dL (2.8-20.0) L 10/16/17 09:56 Urine Opiates Screen Presumptive negative 10/16/17 11:30 Urine Methadone Screen Presumptive negative 10/16/17 11:30 Acetaminophen < 15.0 ug/mL (10.0-30.0) 10/16/17 09:56 Ur Barbiturates Screen Presumptive negative 10/16/17 11:30 Ur Phencyclidine Scrn Presumptive negative 10/16/17 11:30 Ur Amphetamines Screen Presumptive negative 10/16/17 11:30 U Benzodiazepines Scrn Presumptive negative 10/16/17 11:30 Urine Cocaine Screen Presumptive negative 10/16/17 11:30 U Marijuana (THC) Screen Presumptive negative 10/16/17 11:30 Drugs of Abuse Note Disclamer 10/16/17 11:30 Plasma/Serum Alcohol < 0.01 gm% (0-0.07) 10/16/17 09:56
[2017-10-19 10:06] LABS: Alanine Aminotransferase 73 units/L (7-56); Alkaline Phosphatase 58 units/L (35-129); Anion Gap 16 mmol/L; BUN/Creatinine Ratio 27; Blood Urea Nitrogen 24 mg/dL (9-20); Calcium 7.9 mg/dL (8.4-10.2); Carbon Dioxide 26 mmol/L (22-30); Chloride 115.3 mmol/L (98-107); Glucose 114 mg/dL (75-100); Potassium 4.1 mmol/L (3.6-5.0); Sodium 153 mmol/L (137-145)
[2017-10-19 11:10] LABS: Albumin 2.4 g/dL (3.9-5); Albumin/Globulin Ratio 0.7 %
[2017-10-19] MEDS: D5W 1,000 ML IV SCH (11:58)
[2017-10-19] MEDS: TORADOL IV PRN (11:59)
--- NOTE | 2017-10-19 13:52 | Consultation ---
History of Present Illness - Reason for Consult Consult date: 10/19/17 Reason for consult: Mental Health Evaluation Requesting physician: LATANYA RAO - Chief Complaint Chief complaint: "Hello" - History of Present Psychiatric Illness Patient is a 77-year-old white male brought from [facility] for an evaluation of altered mental status. Today patient is calm, but confused during the assessment. He was able to ID his and answer to his name when called. Per collateral information from his spouse Lizzeth Akers, she stated that her was dx with Dementia 3 years ago and is seen by his neurologist in [place], [place]. She stated that her 's behavior changed over the past 2 months (being aggressive/combative) and was hospitalized at medical facility near her home. She stated that the psychiatrist started him on Depakote and Zyprexa to help with his mood. She stated that the medical team decided to transfer him to [facility] 2 weeks ago. She denies any side effect of the Depakote and Zyprexa. She denies recreational drug and alcohol consumption ( etoh) by her . Medications and Allergies Allergies Allergy/AdvReac Type Severity Reaction Status Date / Time atorvastatin [From Lipitor] Allergy Unknown Verified 10/16/17 09:25 Home Medications Medication Instructions Recorded Confirmed Last Taken Type Amantadine [Symmetrel] 100 mg PO BID 10/16/17 10/16/17 Unknown History Aspirin [Adult Low Dose Aspirin EC] 81 mg PO QDAY 10/16/17 10/16/17 Unknown History Cholecalciferol (Vitamin D3) 1,000 unit PO QDAY 10/16/17 10/16/17 Unknown History [Vitamin D3] Citalopram [celeXA] 10 mg PO QDAY 10/16/17 10/16/17 Unknown History Divalproex Sodium [Depakote] 250 mg PO QAM 10/16/17 10/16/17 Unknown History Divalproex Sodium [Depakote] 500 mg PO HS 10/16/17 10/16/17 Unknown History Docusate Sodium [Colace] 100 mg PO BID 10/16/17 10/16/17 Unknown History Ezetimibe [Zetia] 10 mg PO QDAY 10/16/17 10/16/17 Unknown History Levothyroxine [Synthroid] 50 mcg PO QDAY 10/16/17 10/16/17 Unknown History Montelukast [Singulair] 10 mg PO DAILY 10/16/17 10/16/17 Unknown History OLANzapine [ZyPREXA] 5 mg PO BID 10/16/17 10/16/17 Unknown History Pantoprazole [Protonix] 40 mg PO QDAY 10/16/17 10/16/17 Unknown History Rosuvastatin Calcium [Crestor] 40 mg PO DAILY 10/16/17 10/16/17 Unknown History Active Meds: Active Medications Acetaminophen (Tylenol) 650 mg PO Q4H PRN PRN Reason: Pain MILD(1-3)/Fever >100.5/RICH Last Admin: 10/18/17 20:27 Dose: 650 mg Albuterol (Proventil) 2.5 mg IH Q4HRT PRN PRN Reason: Shortness Of Breath Amantadine HCl (Symmetrel) 100 mg PO BID [facility] Last Admin: 10/18/17 21:33 Dose: 100 mg Aspirin (Halfprin Ec) 81 mg PO QDAY [facility] Last Admin: 10/18/17 10:09 Dose: Not Given Cholecalciferol (Vitamin D3) 1,000 unit PO DAILY [facility] Last Admin: 10/18/17 10:09 Dose: Not Given Citalopram Hydrobromide (Celexa) 10 mg PO QDAY [facility] Last Admin: 10/18/17 10:08 Dose: Not Given Divalproex Sodium (Depakote Dr) 250 mg PO QAM [facility] Last Admin: 10/18/17 10:09 Dose: Not Given Divalproex Sodium (Depakote Dr) 500 mg PO HS [facility] Last Admin: 10/18/17 21:32 Dose: 500 mg Docusate Sodium (Colace) 100 mg PO BID [facility] Last Admin: 10/18/17 21:31 Dose: 100 mg Ezetimibe (Zetia) 10 mg PO QDAY [facility] Last Admin: 10/18/17 10:09 Dose: Not Given Haloperidol Lactate (Haldol) 2 mg IM Q6H PRN PRN Reason: Agitation Last Admin: 10/18/17 21:31 Dose: 2 mg Ampicillin Sodium/Sulbactam Sodium (Unasyn/Ns 3 Gm/100 Ml) 3 gm in 100 mls @ 100 mls/hr IV Q6H [facility] PRN Reason: Protocol Last Admin: 10/19/17 11:49 Dose: 100 mls/hr Dextrose (D5w) 1,000 mls @ 100 mls/hr IV DIRECT [facility] Last Admin: 10/19/17 11:58 Dose: 100 mls/hr Ketorolac Tromethamine (Toradol) 15 mg IV Q8H PRN PRN Reason: Pain, Mild (1-3) Stop: 10/24/17 11:59 Last Admin: 10/19/17 11:59 Dose: 15 mg Levothyroxine Sodium (Synthroid) 50 mcg PO DAILY@0600 [facility] Last Admin: 10/19/17 06:57 Dose: Not Given Miscellaneous Medication (Rosuvastatin Calcium [Crestor]) 40 mg PO DAILY [facility] Montelukast Sodium (Singulair) 10 mg PO DAILY [facility] Last Admin: 10/18/17 10:09 Dose: Not Given Olanzapine (Zyprexa) 5 mg PO BID [facility] Last Admin: 10/18/17 21:31 Dose: 5 mg Past psychiatric history - Past Medical History Past Medical History: hypothyroidism, other (TBI, dementia) Past Surgical History: No surgical history - past Psychiatric treatment and history psychiatric treatment history: Seen by psychiatrist at a medical facility in [place] (dementia). Per the patient's , no fam psy hx. - Social History Social history: lives with family Mental Status Exam - Vital signs Last Vital Signs Temp 98.6 F 10/19/17 12:17 Pulse 65 10/19/17 07:48 Resp 20 10/19/17 12:17 BP 110/66 10/19/17 12:17 Pulse Ox 96 10/19/17 07:48 - Exam Narrative exam: MSE: Appearance: calm Behavior: regular eye contact Speech: regular rate and loud tone Mood: "okay" Affect: flat Thought Process: unable to assess Thought Content: no gestures of SI/HI's and AVH's Motor Activity: lying in bed Cognition: alert Insight: poor Judgment: poor Results Result Diagrams: 10/18/17 Unknown 10/19/17 09:15 Abnormal lab results 10/19/17 10/19/17 Range/Units 09:15 09:24 Sodium 153 H (137-145) mmol/L Chloride 115.3 H (98-107) mmol/L BUN 24 H (9-20) mg/dL Glucose 114 H (75-100) mg/dL Calcium 7.9 L (8.4-10.2) mg/dL Total Bilirubin 1.40 H (0.1-1.2) mg/dL AST 154 H (5-40) units/L ALT 73 H (7-56) units/L Total Protein 6.0 L (6.3-8.2) g/dL Albumin 2.4 L (3.9-5) g/dL Valproic Acid 20.4 L (50-100) ug/mL All other labs normal. Assessment and Plan Assessment and plan: Impression: Hx of Dementia. Today patient is calm, but confused during the assessment. Per swallowing evaluation by speech therapist - moderate-severe pharyngeal dysphagia, pending barium swallow. NA 153. Medical: Metabolic Encephalopathy/Hypernatremia Recommendation/Plan: Continue 1013. Modified Zyprexa to Zydis (ODT) 5 mg PO BID for mood, Depakote Sprinkles 250 mg QAM for mood, and Depakote Sprinkles 500 mg HS for mood. Recommend the following below: 1. Frequently reorient patient and involve him/her in their care (simple explanations of procedures, tests, medications). 2. Lights on and shades open during daytime hours. 3. Try to avoid unnecessary interruptions to sleep during nighttime hours. 4. Obtain glasses, hearing aids from home if patient uses these at baseline. 5. Avoid medications that may exacerbate delirium (especially narcotics, benzodiazepines, barbiturates, ambien, lunesta, and medications with excessive anticholinergic properties). 6. Recommend Haldol 2 mg IM Q6hrs PRN for acute agitation.
--- NOTE | 2017-10-19 14:09 | Fluoroscopy Report ---
MODIFIED BARIUM SWALLOW History: dysphagia. Findings: Video radiography was provided by the radiologist for speech therapy to assess the swallowing mechanism. Please refer to the formal report by speech therapy. Impression: Successful modified barium swallow.
[2017-10-19] MEDS: VITAMIN D3 PO SCH (18:48)
[2017-10-19] MEDS: SYMMETREL PO SCH ×2 (18:48→21:14)
[2017-10-19] MEDS: HALFPRIN EC PO SCH (18:48)
[2017-10-19] MEDS: COLACE PO SCH ×2 (18:48→21:13)
[2017-10-19] MEDS: SINGULAIR PO SCH (18:48)
[2017-10-19] MEDS: ZETIA PO SCH (18:48)
[2017-10-19] MEDS: LEVAQUIN 750MG/150ML 750 MG/150 ML BAG IV SCH (18:53)
[2017-10-19] MEDS: HALDOL IM PRN (19:04)
[2017-10-19] MEDS: ARICEPT PO SCH (21:13)
[2017-10-19] MEDS: celeXA PO SCH (21:16)
[2017-10-20] MEDS: TORADOL IV PRN (00:09)
[2017-10-20] MEDS: D5W 1,000 ML IV SCH (03:01)
[2017-10-20 04:58] LABS: Basophils % (Auto) 0.5 % (0.0-1.8); Eosinophils % (Auto) 6.9 % (0.0-4.3); Hematocrit 36.4 % (35.5-45.6); Hemoglobin 11.8 gm/dl (11.8-15.2); Mean Corpuscular HGB Conc 33 % (32-34); Mean Corpuscular Hemoglobin 30 pg (28-32); Mean Corpuscular Volume 92 fl (84-94); Platelet Count 196 K/mm3 (140-440); Red Blood Count 3.97 M/mm3 (3.65-5.03); Red Cell Distribution Width 14.3 % (13.2-15.2); White Blood Count 6.6 K/mm3 (4.5-11.0)
[2017-10-20 05:17] LABS: INR 1.1 (0.87-1.13); Partial Thromboplastin Time 31.5 Sec. (24.2-36.6)
[2017-10-20] MEDS: SYNTHROID PO SCH (05:17)
[2017-10-20 05:18] LABS: Alanine Aminotransferase 64 units/L (7-56); Albumin 2.6 g/dL (3.9-5); Albumin/Globulin Ratio 1.1 %; Alkaline Phosphatase 58 units/L (35-129); Anion Gap 13 mmol/L; BUN/Creatinine Ratio 28; Blood Urea Nitrogen 25 mg/dL (9-20); Calcium 7.8 mg/dL (8.4-10.2); Carbon Dioxide 26 mmol/L (22-30); Chloride 111.1 mmol/L (98-107); Glucose 105 mg/dL (75-100); Potassium 3.6 mmol/L (3.6-5.0); Sodium 146 mmol/L (137-145)
--- NOTE | 2017-10-20 10:49 | Gastroenterology Consultation ---
History of Present Illness - Reason for Consult Consult date: 10/20/17 inability to swallow Requesting physician: LATANYA RAO - History of Present Illness The patient is a 77 year old man for whom consultation was requested for PEG consideration. He has progressive dementia with acute delirium over the pas 2 weeks requiring hospitalization. Prior to that time he was eating reasonably well according to his and had lost no weight. The patient has CAD and hx CABG and was on Plavix although the date of the last dose is unknown to the or treating nurse, probably a few days. MBS has been done and the report of the speech therapist is pending. Past History Past Medical History: hypothyroidism, other (TBI, dementia) Past Surgical History: CABG Social history: lives with family Family history: no significant family history (reviewed) Medications and Allergies Allergies Allergy/AdvReac Type Severity Reaction Status Date / Time atorvastatin [From Lipitor] Allergy Unknown Verified 10/16/17 09:25 Home Medications Medication Instructions Recorded Confirmed Last Taken Type Amantadine [Symmetrel] 100 mg PO BID 10/16/17 10/16/17 Unknown History Aspirin [Adult Low Dose Aspirin EC] 81 mg PO QDAY 10/16/17 10/16/17 Unknown History Cholecalciferol (Vitamin D3) 1,000 unit PO QDAY 10/16/17 10/16/17 Unknown History [Vitamin D3] Citalopram [celeXA] 10 mg PO QDAY 10/16/17 10/16/17 Unknown History Divalproex Sodium [Depakote] 250 mg PO QAM 10/16/17 10/16/17 Unknown History Divalproex Sodium [Depakote] 500 mg PO HS 10/16/17 10/16/17 Unknown History Docusate Sodium [Colace] 100 mg PO BID 10/16/17 10/16/17 Unknown History Ezetimibe [Zetia] 10 mg PO QDAY 10/16/17 10/16/17 Unknown History Levothyroxine [Synthroid] 50 mcg PO QDAY 10/16/17 10/16/17 Unknown History Montelukast [Singulair] 10 mg PO DAILY 10/16/17 10/16/17 Unknown History OLANzapine [ZyPREXA] 5 mg PO BID 10/16/17 10/16/17 Unknown History Pantoprazole [Protonix] 40 mg PO QDAY 10/16/17 10/16/17 Unknown History Rosuvastatin Calcium [Crestor] 40 mg PO DAILY 10/16/17 10/16/17 Unknown History Active Meds: Active Medications Acetaminophen (Tylenol) 650 mg PO Q4H PRN PRN Reason: Pain MILD(1-3)/Fever >100.5/RICH Last Admin: 10/18/17 20:27 Dose: 650 mg Albuterol (Proventil) 2.5 mg IH Q4HRT PRN PRN Reason: Shortness Of Breath Amantadine HCl (Symmetrel) 100 mg PO BID [facility] Last Admin: 10/19/17 21:14 Dose: Not Given Aspirin (Halfprin Ec) 81 mg PO QDAY [facility] Last Admin: 10/19/17 18:48 Dose: Not Given Cholecalciferol (Vitamin D3) 1,000 unit PO DAILY [facility] Last Admin: 10/19/17 18:48 Dose: Not Given Divalproex Sodium (Depakote Sprinkle) 250 mg PO QAM [facility] Divalproex Sodium (Depakote Sprinkle) 500 mg PO HS [facility] Last Admin: 10/19/17 21:13 Dose: Not Given Docusate Sodium (Colace) 100 mg PO BID [facility] Last Admin: 10/19/17 21:13 Dose: Not Given Donepezil HCl (Aricept) 10 mg PO QHS [facility] Last Admin: 10/19/17 21:13 Dose: Not Given Ezetimibe (Zetia) 10 mg PO QDAY [facility] Last Admin: 10/19/17 18:48 Dose: Not Given Haloperidol Lactate (Haldol) 2 mg IM Q6H PRN PRN Reason: Agitation Last Admin: 10/19/17 19:04 Dose: 2 mg Dextrose (D5w) 1,000 mls @ 150 mls/hr IV DIRECT [facility] Last Admin: 10/20/17 03:01 Dose: 100 mls/hr Levofloxacin/Dextrose (Levaquin 750mg/150ml) 750 mg in 150 mls @ 100 mls/hr IV Q24H [facility] PRN Reason: Protocol Last Admin: 10/19/17 18:53 Dose: 100 mls/hr Ketorolac Tromethamine (Toradol) 15 mg IV Q8H PRN PRN Reason: Pain, Mild (1-3) Stop: 10/24/17 11:59 Last Admin: 10/20/17 00:09 Dose: 15 mg Levothyroxine Sodium (Synthroid) 50 mcg PO DAILY@0600 [facility] Last Admin: 10/20/17 05:17 Dose: Not Given Montelukast Sodium (Singulair) 10 mg PO DAILY [facility] Last Admin: 10/19/17 18:48 Dose: Not Given Olanzapine (Zyprexa Zydis) 5 mg PO BID [facility] Last Admin: 10/19/17 21:14 Dose: Not Given Review of Systems - Review of Systems ROS unobtainable: due to mental status Exam - Constitutional Vital Signs: Temp Pulse Resp BP Pulse Ox 97.7 F 67 18 112/62 93 10/20/17 07:05 10/20/17 07:05 10/20/17 07:05 10/20/17 07:05 10/20/17 09:34 General appearance: no acute distress, well-nourished - EENT Eyes: PERRL ENT: hearing intact, clear oral mucosa, dentition normal - Neck Neck: supple, normal ROM, no masses or JVD - Respiratory Respiratory effort: normal Respiratory: bilateral: CTA - Breasts Breasts: deferred - Cardiovascular Rhythm: regular Heart Sounds: Present: S1 & S2. Absent: systolic murmur, diastolic murmur Extremities: pulses intact, No edema, normal color, Full ROM - Gastrointestinal General gastrointestinal: Present: soft, non-tender, non-distended, normal bowel sounds. Absent: hepatomegaly, splenomegaly, mass Rectal Exam: deferred - Genitourinary Male Genitourinary: deferred - Integumentary Integumentary: Present: clear, warm, dry - Neurologic Neurological: disoriented, other (Awake and alert, but not following commands.) - Labs CBC & Chem 7: 10/20/17 04:39 10/20/17 04:39 Lab Results: Laboratory Results - last 24 hr 10/19/17 10/19/17 10/20/17 09:15 09:24 04:39 WBC RBC Hgb Hct MCV MCH MCHC RDW Plt Count Lymph % (Auto) [place] % (Auto) Eos % (Auto) Baso % (Auto) Lymph # [place] # Eos # Baso # Seg Neutrophils % Seg Neutrophils # PT INR APTT Sodium 146 H Potassium 3.6 Chloride 111.1 H Carbon Dioxide 26 Anion Gap 13 BUN 25 H Creatinine 0.9 Estimated GFR > 60 BUN/Creatinine Ratio 28 Glucose 105 H Calcium 7.8 L Magnesium 2.00 Total Bilirubin 1.40 H AST 110 H ALT 64 H Alkaline Phosphatase 58 Total Protein 5.0 L Albumin 2.4 L 2.6 L Albumin/Globulin Ratio 0.7 1.1 Valproic Acid 20.4 L 10/20/17 10/20/17 04:39 04:39 WBC 6.6 RBC 3.97 Hgb 11.8 Hct 36.4 MCV 92 MCH 30 MCHC 33 RDW 14.3 Plt Count 196 Lymph % (Auto) 26.1 [place] % (Auto) 9.7 H Eos % (Auto) 6.9 H Baso % (Auto) 0.5 Lymph # 1.7 [place] # 0.6 Eos # 0.5 H Baso # 0.0 Seg Neutrophils % 56.8 Seg Neutrophils # 3.7 PT 14.8 INR 1.10 APTT 31.5 Sodium Potassium Chloride Carbon Dioxide Anion Gap BUN Creatinine Estimated GFR BUN/Creatinine Ratio Glucose Calcium Magnesium Total Bilirubin AST ALT Alkaline Phosphatase Total Protein Albumin Albumin/Globulin Ratio Valproic Acid Assessment and Plan - Patient Problems (1) Inability to swallow Current Visit: Yes Status: Acute Plan to address problem: Needs PEG in all probability. Await formal speech therapy report. Coags normalized. Probably has not been on Plavix this week. is familiar with PEG as patient had one several years ago after TBI. Will schedule for Monday. (2) Dementia Current Visit: Yes Status: Acute (3) Aspiration pneumonia Current Visit: Yes Status: Acute Qualifiers: Laterality: right Lung location: lower lobe of lung
--- NOTE | 2017-10-20 11:24 | Progress Note ---
Subjective - Reason for Consult Consult date: 10/20/17 Reason for consult: Psychiatry Follow-up - Chief Complaint Chief complaint: "Estela" Patient is a 77-year-old white male brought from [facility] for an evaluation of altered mental status. Today patient is calm, but confused during the assessment. His stated that her had a "pretty good night." Per the staff, no behavioral disturbance overnight. No gestures of SI/HI 's. Mental Status Exam - Vital signs Last Vital Signs Temp 98.2 F 10/20/17 11:07 Pulse 86 10/20/17 11:07 Resp 20 10/20/17 11:07 BP 122/79 10/20/17 11:07 Pulse Ox 93 10/20/17 11:07 - Exam Narrative exam: MSE: Appearance: calm Behavior: regular eye contact Speech: regular rate and loud tone Mood: "okay" Affect: flat Thought Process: unable to assess Thought Content: no gestures of SI/HI's and AVH's Motor Activity: lying in bed Cognition: confused Insight: poor Judgment: poor Assessment and Plan Impression: Hx of Dementia. Today patient is calm, but confused during the assessment. NA 146. Medical: Metabolic Encephalopathy/Hypernatremia Recommendation/Plan: Continue 1013. Continue Zyprexa to Zydis (ODT) 5 mg PO BID for mood, Depakote Sprinkles 250 mg QAM for mood, and Depakote Sprinkles 500 mg HS for mood, and Aricept 10 mg PO HS for dementia symptoms. The Zyprexa ODT tablet can dissolve on patient's tongue. If patient is cleared to swallow, the Depakote Sprinkles can be placed in the patient's food. Recommend the following below: 1. Frequently reorient patient and involve him/her in their care (simple explanations of procedures, tests, medications). 2. Lights on and shades open during daytime hours. 3. Try to avoid unnecessary interruptions to sleep during nighttime hours. 4. Obtain glasses, hearing aids from home if patient uses these at baseline. 5. Avoid medications that may exacerbate delirium (especially narcotics, benzodiazepines, barbiturates, ambien, lunesta, and medications with excessive anticholinergic properties). 6. Recommend Haldol 2 mg IM Q6hrs PRN for acute agitation.
[2017-10-20] MEDS: COLACE PO SCH ×2 (13:37→21:28)
[2017-10-20] MEDS: VITAMIN D3 PO SCH (13:38)
[2017-10-20] MEDS: HALFPRIN EC PO SCH (13:38)
[2017-10-20] MEDS: SINGULAIR PO SCH (13:38)
[2017-10-20] MEDS: ZETIA PO SCH (13:38)
[2017-10-20] MEDS: SYMMETREL PO SCH ×2 (13:38→21:29)
--- NOTE | 2017-10-20 13:46 | Consultation ---
History of Present Illness - HPI Consult date: 10/20/17 Consult reason: joint pain History of present illness: 77 y/o male with multiple medical problems admitted for pneumonia, hx of Parkinson's and dementia who supposedly fell at [place] facility prior to presenting to our institution. Unable to fully weight bear plain xrays obtained showing no apparent fracture or dislocation. Asked to evaluate... Past History Past Medical History: hypothyroidism, other (TBI, dementia) Past Surgical History: CABG Social history: lives with family Family history: no significant family history (reviewed) Medications and Allergies Allergies Allergy/AdvReac Type Severity Reaction Status Date / Time atorvastatin [From Lipitor] Allergy Unknown Verified 10/16/17 09:25 Home Medications Medication Instructions Recorded Confirmed Last Taken Type Amantadine [Symmetrel] 100 mg PO BID 10/16/17 10/16/17 Unknown History Aspirin [Adult Low Dose Aspirin EC] 81 mg PO QDAY 10/16/17 10/16/17 Unknown History Cholecalciferol (Vitamin D3) 1,000 unit PO QDAY 10/16/17 10/16/17 Unknown History [Vitamin D3] Citalopram [celeXA] 10 mg PO QDAY 10/16/17 10/16/17 Unknown History Divalproex Sodium [Depakote] 250 mg PO QAM 10/16/17 10/16/17 Unknown History Divalproex Sodium [Depakote] 500 mg PO HS 10/16/17 10/16/17 Unknown History Docusate Sodium [Colace] 100 mg PO BID 10/16/17 10/16/17 Unknown History Ezetimibe [Zetia] 10 mg PO QDAY 10/16/17 10/16/17 Unknown History Levothyroxine [Synthroid] 50 mcg PO QDAY 10/16/17 10/16/17 Unknown History Montelukast [Singulair] 10 mg PO DAILY 10/16/17 10/16/17 Unknown History OLANzapine [ZyPREXA] 5 mg PO BID 10/16/17 10/16/17 Unknown History Pantoprazole [Protonix] 40 mg PO QDAY 10/16/17 10/16/17 Unknown History Rosuvastatin Calcium [Crestor] 40 mg PO DAILY 10/16/17 10/16/17 Unknown History Active Meds: Active Medications Acetaminophen (Tylenol) 650 mg PO Q4H PRN PRN Reason: Pain MILD(1-3)/Fever >100.5/RICH Last Admin: 10/18/17 20:27 Dose: 650 mg Albuterol (Proventil) 2.5 mg IH Q4HRT PRN PRN Reason: Shortness Of Breath Amantadine HCl (Symmetrel) 100 mg PO BID [facility] Last Admin: 10/19/17 21:14 Dose: Not Given Aspirin (Halfprin Ec) 81 mg PO QDAY [facility] Last Admin: 10/19/17 18:48 Dose: Not Given Cholecalciferol (Vitamin D3) 1,000 unit PO DAILY [facility] Last Admin: 10/19/17 18:48 Dose: Not Given Divalproex Sodium (Depakote Sprinkle) 250 mg PO QAM [facility] Divalproex Sodium (Depakote Sprinkle) 500 mg PO HS [facility] Last Admin: 10/19/17 21:13 Dose: Not Given Docusate Sodium (Colace) 100 mg PO BID [facility] Last Admin: 10/19/17 21:13 Dose: Not Given Donepezil HCl (Aricept) 10 mg PO QHS [facility] Last Admin: 10/19/17 21:13 Dose: Not Given Ezetimibe (Zetia) 10 mg PO QDAY [facility] Last Admin: 10/19/17 18:48 Dose: Not Given Haloperidol Lactate (Haldol) 2 mg IM Q6H PRN PRN Reason: Agitation Last Admin: 10/19/17 19:04 Dose: 2 mg Dextrose (D5w) 1,000 mls @ 150 mls/hr IV DIRECT [facility] Last Admin: 10/20/17 03:01 Dose: 100 mls/hr Levofloxacin/Dextrose (Levaquin 750mg/150ml) 750 mg in 150 mls @ 100 mls/hr IV Q24H [facility] PRN Reason: Protocol Last Admin: 10/19/17 18:53 Dose: 100 mls/hr Ketorolac Tromethamine (Toradol) 15 mg IV Q8H PRN PRN Reason: Pain, Mild (1-3) Stop: 10/24/17 11:59 Last Admin: 10/20/17 00:09 Dose: 15 mg Levothyroxine Sodium (Synthroid) 50 mcg PO DAILY@0600 [facility] Last Admin: 10/20/17 05:17 Dose: Not Given Montelukast Sodium (Singulair) 10 mg PO DAILY [facility] Last Admin: 10/19/17 18:48 Dose: Not Given Olanzapine (Zyprexa Zydis) 5 mg PO BID [facility] Last Admin: 10/20/17 12:50 Dose: 5 mg Physical Examination - Physical exam Narrative exam: Lower extremities - right hip - moderate swelling, bruising over greater trochanter, good passive at hip, no limb shortening... xrays right hip - no fracture/dislocation seen Eyes: PERRL ENT: Positive: clear oral mucosa Respiratory effort: normal Respiratory: bilateral: CTA Rhythm: regular Heart Sounds: Positive: S1 & S2 General gastrointestinal: Positive: soft, non-tender, non-distended, normal bowel sounds Integumentary: clear, warm, dry Neurologic: Positive: CNII-XII intact, moves all extremities, gait normal. Negative: focal deficits - Cervical Spine Neck pain: none Tenderness with palpation: none Full ROM: yes ROM: flexion: normal ROM: extension: normal ROM: rotation right: normal ROM: rotation left: normal ROM: lateral flexion right: normal ROM: lateral flexion left: normal - Lumbar Spine Back pain: none Tenderness with palpation: none Appearance: normal Full ROM: yes ROM: flexion: normal ROM: extension: normal ROM: rotation right: normal ROM: rotation left: normal ROM: lateral flexion right: normal ROM: lateral flexion left: normal Assessment and Plan Contusion right hip recommend PT and observation
[2017-10-20] MEDS ORDERED: PANCREAZE DR 10,500 UNIT FEEDTUBE PRN ×3 (13:53→15:38)
[2017-10-20] MEDS ORDERED: SODIUM BICARBONATE FEEDTUBE PRN ×3 (13:53→15:38)
[2017-10-20] MEDS ORDERED: SIMPLE SYRUP FEEDTUBE PRN ×6 (13:53→15:38)
--- NOTE | 2017-10-20 13:55 | Progress Note ---
Assessment and Plan Assessment and plan: --dysphagia/failed modified barium swallow study Speech therapy recommend PEG placement, GI consulted Possible. PEG today, if PEG cannot be done today Will start Dobbhoff feeding --lactic acidosis; corrected --Right-sided aspiration pneumonia Continue antibiotics, supportive care, follow cultures --Metabolic encephalopathy; neurochecks, mild improvement --Hypernatremia; secondary to dehydration, D5W, consider free water therapy oral /Dobbhoff --Leukocytosis; due to sepsis; resolved --Dementia; supportive care --Right hip pain; x-ray suspicion joint effusion, Physical therapy, consider orthopedic if needed --Transaminitis; trending down, --Acute renal failure; due to ATN, trending down, continue IV fluids, avoid nephrotoxic medications --H/O schizophrenia, recurrent psych medications, psych evaluation and recommendations --DVT prophylaxis; SCDs --Continue 1013 --Full CODE STATUS follow modified barium swallow study PT OT Discharge planning per case management, possible placement History Interval history: Patient seen and examined medical records reviewed Patient is more alert and awake today, responding some questions appropriately Vital signs reviewed Failed barium swallow, consulted GI for possible PEG placement Patient nothing by mouth status Hospitalist Physical - Constitutional Vitals: Temp Pulse Resp BP Pulse Ox 98.2 F 86 20 122/79 93 10/20/17 11:07 10/20/17 11:07 10/20/17 11:07 10/20/17 11:07 10/20/17 11:07 General appearance: Present: no acute distress, cachectic, other (dehydrated) - EENT Eyes: Present: PERRL, EOM intact - Neck Neck: Present: supple, normal ROM - Respiratory Respiratory effort: normal Respiratory: bilateral: diminished, negative: rales, rhonchi, wheezing - Cardiovascular Rhythm: regular Heart Sounds: Present: S1 & S2 - Extremities Extremities: no ischemia, No edema - Abdominal General gastrointestinal: soft, non-tender, non-distended, normal bowel sounds - Integumentary Integumentary: Present: clear, warm - Psychiatric Psychiatric: appropriate mood/affect, cooperative - Neurologic Neurologic: CNII-XII intact, moves all extremities Results - Labs CBC & Chem 7: 10/20/17 04:39 10/20/17 04:39 Labs: Laboratory Last Values WBC 6.6 K/mm3 (4.5-11.0) 10/20/17 04:39 RBC 3.97 M/mm3 (3.65-5.03) 10/20/17 04:39 Hgb 11.8 gm/dl (11.8-15.2) 10/20/17 04:39 Hct 36.4 % (35.5-45.6) 10/20/17 04:39 MCV 92 fl (84-94) 10/20/17 04:39 MCH 30 pg (28-32) 10/20/17 04:39 MCHC 33 % (32-34) 10/20/17 04:39 RDW 14.3 % (13.2-15.2) 10/20/17 04:39 Plt Count 196 K/mm3 (140-440) 10/20/17 04:39 Lymph % (Auto) 26.1 % (13.4-35.0) 10/20/17 04:39 Desha % (Auto) 9.7 % (0.0-7.3) H 10/20/17 04:39 Eos % (Auto) 6.9 % (0.0-4.3) H 10/20/17 04:39 Baso % (Auto) 0.5 % (0.0-1.8) 10/20/17 04:39 Lymph # 1.7 K/mm3 (1.2-5.4) 10/20/17 04:39 Desha # 0.6 K/mm3 (0.0-0.8) 10/20/17 04:39 Eos # 0.5 K/mm3 (0.0-0.4) H 10/20/17 04:39 Baso # 0.0 K/mm3 (0.0-0.1) 10/20/17 04:39 Add Manual Diff Complete 10/16/17 09:56 Total Counted 100 10/16/17 09:56 Seg Neutrophils % 56.8 % (40.0-70.0) 10/20/17 04:39 Seg Neuts % (Manual) 80.0 % (40.0-70.0) H 10/16/17 09:56 Band Neutrophils % 0 % 10/16/17 09:56 Lymphocytes % (Manual) 6.0 % (13.4-35.0) L 10/16/17 09:56 Reactive Lymphs % (Man) 0 % 10/16/17 09:56 Monocytes % (Manual) 14.0 % (0.0-7.3) H 10/16/17 09:56 Eosinophils % (Manual) 0 % (0.0-4.3) 10/16/17 09:56 Basophils % (Manual) 0 % (0.0-1.8) 10/16/17 09:56 Metamyelocytes % 0 % 10/16/17 09:56 Myelocytes % 0 % 10/16/17 09:56 Promyelocytes % 0 % 10/16/17 09:56 Blast Cells % 0 % 10/16/17 09:56 Nucleated RBC % Not Reportable 10/16/17 09:56 Seg Neutrophils # 3.7 K/mm3 (1.8-7.7) 10/20/17 04:39 Seg Neutrophils # Man 16.5 K/mm3 (1.8-7.7) H 10/16/17 09:56 Band Neutrophils # 0.0 K/mm3 10/16/17 09:56 Lymphocytes # (Manual) 1.2 K/mm3 (1.2-5.4) 10/16/17 09:56 Abs React Lymphs (Man) 0.0 K/mm3 10/16/17 09:56 Monocytes # (Manual) 2.9 K/mm3 (0.0-0.8) H 10/16/17 09:56 Eosinophils # (Manual) 0.0 K/mm3 (0.0-0.4) 10/16/17 09:56 Basophils # (Manual) 0.0 K/mm3 (0.0-0.1) 10/16/17 09:56 Metamyelocytes # 0.0 K/mm3 10/16/17 09:56 Myelocytes # 0.0 K/mm3 10/16/17 09:56 Promyelocytes # 0.0 K/mm3 10/16/17 09:56 Blast Cells # 0.0 K/mm3 10/16/17 09:56 WBC Morphology Not Reportable 10/16/17 09:56 Hypersegmented Neuts Not Reportable 10/16/17 09:56 Hyposegmented Neuts Not Reportable 10/16/17 09:56 Hypogranular Neuts Not Reportable 10/16/17 09:56 Smudge Cells Not Reportable 10/16/17 09:56 Toxic Granulation Not Reportable 10/16/17 09:56 Toxic Vacuolation Not Reportable 10/16/17 09:56 Dohle Bodies Not Reportable 10/16/17 09:56 Pelger-Huet Anomaly Not Reportable 10/16/17 09:56 Usman Rods Not Reportable 10/16/17 09:56 Platelet Estimate Consistent w auto 10/16/17 09:56 Clumped Platelets Not Reportable 10/16/17 09:56 Plt Clumps, EDTA Not Reportable 10/16/17 09:56 Large Platelets Not Reportable 10/16/17 09:56 Giant Platelets Not Reportable 10/16/17 09:56 Platelet Satelliting Not Reportable 10/16/17 09:56 Plt Morphology Comment Not Reportable 10/16/17 09:56 RBC Morphology Normal 10/16/17 09:56 Dimorphic RBCs Not Reportable 10/16/17 09:56 Polychromasia Not Reportable 10/16/17 09:56 Hypochromasia Not Reportable 10/16/17 09:56 Poikilocytosis Not Reportable 10/16/17 09:56 Anisocytosis Not Reportable 10/16/17 09:56 Microcytosis Not Reportable 10/16/17 09:56 Macrocytosis Not Reportable 10/16/17 09:56 Spherocytes Not Reportable 10/16/17 09:56 Pappenheimer Bodies Not Reportable 10/16/17 09:56 Sickle Cells Not Reportable 10/16/17 09:56 Target Cells Not Reportable 10/16/17 09:56 Tear Drop Cells Not Reportable 10/16/17 09:56 Ovalocytes Not Reportable 10/16/17 09:56 Helmet Cells Not Reportable 10/16/17 09:56 Bolivar-[place] Bodies Not Reportable 10/16/17 09:56 [place] Rings Not Reportable 10/16/17 09:56 [place] Cells Not Reportable 10/16/17 09:56 Bite Cells Not Reportable 10/16/17 09:56 Crenated Cell Not Reportable 10/16/17 09:56 Elliptocytes Not Reportable 10/16/17 09:56 Acanthocytes (Spur) Not Reportable 10/16/17 09:56 Rouleaux Not Reportable 10/16/17 09:56 Hemoglobin C Crystals Not Reportable 10/16/17 09:56 Schistocytes Not Reportable 10/16/17 09:56 Malaria parasites Not Reportable 10/16/17 09:56 Tawanda Bodies Not Reportable 10/16/17 09:56 Hem Pathologist Commnt No 10/16/17 09:56 PT 14.8 Sec. (12.2-14.9) 10/20/17 04:39 INR 1.10 (0.87-1.13) 10/20/17 04:39 APTT 31.5 Sec. (24.2-36.6) 10/20/17 04:39 POC ABG pH 7.443 (7.35-7.45) 10/16/17 10:38 POC ABG pCO2 33.3 (35-45) L 10/16/17 10:38 POC ABG pO2 87 (80-105) 10/16/17 10:38 POC ABG HCO3 22.8 10/16/17 10:38 POC ABG Total CO2 24 10/16/17 10:38 POC ABG O2 Sat 97 10/16/17 10:38 POC ABG Base Excess -1 10/16/17 10:38 VBG pH 7.434 (7.320-7.420) H 10/16/17 09:56 FiO2 2.5 % 10/16/17 10:38 Sodium 146 mmol/L (137-145) H 10/20/17 04:39 Potassium 3.6 mmol/L (3.6-5.0) 10/20/17 04:39 Chloride 111.1 mmol/L (98-107) H 10/20/17 04:39 Carbon Dioxide 26 mmol/L (22-30) 10/20/17 04:39 Anion Gap 13 mmol/L 10/20/17 04:39 BUN 25 mg/dL (9-20) H 10/20/17 04:39 Creatinine 0.9 mg/dL (0.8-1.5) 10/20/17 04:39 Estimated GFR > 60 ml/min 10/20/17 04:39 BUN/Creatinine Ratio 28 % 10/20/17 04:39 Glucose 105 mg/dL (75-100) H 10/20/17 04:39 POC Glucose 98 (70-105) 10/16/17 11:15 Lactic Acid 1.60 mmol/L (0.7-2.0) 10/17/17 07:49 Calcium 7.8 mg/dL (8.4-10.2) L 10/20/17 04:39 Magnesium 2.00 mg/dL (1.7-2.3) 10/20/17 04:39 Total Bilirubin 1.40 mg/dL (0.1-1.2) H 10/20/17 04:39 AST 110 units/L (5-40) H 10/20/17 04:39 ALT 64 units/L (7-56) H 10/20/17 04:39 Alkaline Phosphatase 58 units/L (35-129) 10/20/17 04:39 Total Protein 5.0 g/dL (6.3-8.2) L 10/20/17 04:39 Albumin 2.6 g/dL (3.9-5) L 10/20/17 04:39 Albumin/Globulin Ratio 1.1 % 10/20/17 04:39 TSH 4.780 mlU/mL (0.270-4.200) H 10/16/17 09:56 Urine Color Ana (Yellow) 10/16/17 11:30 Urine Turbidity Clear (Clear) 10/16/17 11:30 Urine pH 5.0 (5.0-7.0) 10/16/17 11:30 Ur Specific [place] 1.026 (1.003-1.030) 10/16/17 11:30 Urine Protein 100 mg/dl mg/dL (Negative) 10/16/17 11:30 Urine Glucose (UA) Neg mg/dL (Negative) 10/16/17 11:30 Urine Ketones Tr mg/dL (Negative) 10/16/17 11:30 Urine Blood Lg (Negative) 10/16/17 11:30 Urine Nitrite Neg (Negative) 10/16/17 11:30 Urine Bilirubin Neg (Negative) 10/16/17 11:30 Urine Urobilinogen 2.0 mg/dL (<2.0) 10/16/17 11:30 Ur Leukocyte Esterase Neg (Negative) 10/16/17 11:30 Urine WBC (Auto) 10.0 /HPF (0.0-6.0) H 10/16/17 11:30 Urine RBC (Auto) 14.0 /HPF (0.0-6.0) 10/16/17 11:30 U Epithel Cells (Auto) 2.0 /HPF (0-13.0) 10/16/17 11:30 Urine Bacteria (Auto) 1+ /HPF (Negative) 10/16/17 11:30 Hyaline Casts 3 /LPF 10/16/17 11:30 Urine Mucus 2+ /HPF 10/16/17 11:30 Salicylates < 0.3 mg/dL (2.8-20.0) L 10/16/17 09:56 Urine Opiates Screen Presumptive negative 10/16/17 11:30 Urine Methadone Screen Presumptive negative 10/16/17 11:30 Acetaminophen < 15.0 ug/mL (10.0-30.0) 10/16/17 09:56 Ur Barbiturates Screen Presumptive negative 10/16/17 11:30 Valproic Acid 20.4 ug/mL (50-100) L 10/19/17 09:24 Ur Phencyclidine Scrn Presumptive negative 10/16/17 11:30 Ur Amphetamines Screen Presumptive negative 10/16/17 11:30 U Benzodiazepines Scrn Presumptive negative 10/16/17 11:30 Urine Cocaine Screen Presumptive negative 10/16/17 11:30 U Marijuana (THC) Screen Presumptive negative 10/16/17 11:30 Drugs of Abuse Note Disclamer 10/16/17 11:30 Plasma/Serum Alcohol < 0.01 gm% (0-0.07) 10/16/17 09:56
--- NOTE | 2017-10-20 17:03 | XRay Report ---
FINAL REPORT PROCEDURE: Abdomen. TECHNIQUE: Portable AP upright view. HISTORY: Two verify Dobhoff tube placement. COMPARISON: No prior studies are available for comparison. FINDINGS: There is a Dobhoff tube that terminates in the right lower lobe. The tube should be completely removed before re-inserting. The bowel gas pattern is normal. The regional skeleton appears intact. IMPRESSION: Dobhoff tube in lower lobe of the right lung.
[2017-10-20] MEDS: LEVAQUIN 750MG/150ML 750 MG/150 ML BAG IV SCH (18:45)
[2017-10-20] MEDS: ARICEPT PO SCH (21:28)
[2017-10-21] MEDS: D5W 1,000 ML IV SCH ×2 (01:49→09:16)
[2017-10-21] MEDS: SYNTHROID PO SCH (06:48)
--- NOTE | 2017-10-21 07:36 | Progress Note ---
Assessment and Plan Assessment and plan: --dysphagia/failed modified barium swallow study PEG placement requested, GI K Ayesha for 10/23/[address] Dobbhoff ,start tube feeding , followed GI recommendations --lactic acidosis; corrected --Right-sided aspiration pneumonia Continue antibiotics, supportive care, follow cultures --Metabolic encephalopathy; neurochecks, mild improvement --Hypernatremia; continue D5W, corrected--Leukocytosis; due to sepsis; resolved --Dementia; supportive care --Right hip pain; x-ray suspicion joint effusion, orthopedic evaluated the patient, advised physical therapy --Transaminitis; trending down, --Acute renal failure; due to ATN, resolved --H/O schizophrenia, recurrent psych medications, psych evaluation and recommendations --DVT prophylaxis; SCDs --Continue 1013 --Full CODE STATUS Discharge planning per case management, possible discharge after PEG placement Home versus subacute rehabilitation Plan of care discussed with the patient and his I also discussed the case with on-call GI Dr. Galindo History Interval history: Patient seen and examined medical records reviewed PEG tube scheduled for 10/23/2017 No stride Dobbhoff feeding tube placement last night, found to be in the lung Dobbhoff removed, and IV hydration She consulted GI to take, advised as to place Dobbhoff again Will request GI for assistance as needed Hospitalist Physical - Constitutional Vitals: Temp Pulse Resp BP Pulse Ox 98.6 F 79 20 129/72 94 10/21/17 05:48 10/21/17 05:48 10/20/17 19:32 10/21/17 05:48 10/21/17 05:48 General appearance: Present: no acute distress, cachectic, other (dehydrated) - EENT Eyes: Present: PERRL, scleral icterus - Neck Neck: Present: supple, normal ROM - Respiratory Respiratory effort: normal Respiratory: bilateral: diminished, negative: rales, rhonchi, wheezing - Cardiovascular Rhythm: regular Heart Sounds: Present: S1 & S2 - Extremities Extremities: no ischemia, pulses intact Peripheral Pulses: within normal limits - Abdominal General gastrointestinal: soft, non-tender, non-distended, normal bowel sounds - Integumentary Integumentary: Present: clear, warm - Psychiatric Psychiatric: other (confused ) - Neurologic Neurologic: CNII-XII intact, moves all extremities Results - Labs CBC & Chem 7: 10/20/17 04:39 10/20/17 04:39 Labs: Laboratory Last Values WBC 6.6 K/mm3 (4.5-11.0) 10/20/17 04:39 RBC 3.97 M/mm3 (3.65-5.03) 10/20/17 04:39 Hgb 11.8 gm/dl (11.8-15.2) 10/20/17 04:39 Hct 36.4 % (35.5-45.6) 10/20/17 04:39 MCV 92 fl (84-94) 10/20/17 04:39 MCH 30 pg (28-32) 10/20/17 04:39 MCHC 33 % (32-34) 10/20/17 04:39 RDW 14.3 % (13.2-15.2) 10/20/17 04:39 Plt Count 196 K/mm3 (140-440) 10/20/17 04:39 Lymph % (Auto) 26.1 % (13.4-35.0) 10/20/17 04:39 Hart % (Auto) 9.7 % (0.0-7.3) H 10/20/17 04:39 Eos % (Auto) 6.9 % (0.0-4.3) H 10/20/17 04:39 Baso % (Auto) 0.5 % (0.0-1.8) 10/20/17 04:39 Lymph # 1.7 K/mm3 (1.2-5.4) 10/20/17 04:39 Hart # 0.6 K/mm3 (0.0-0.8) 10/20/17 04:39 Eos # 0.5 K/mm3 (0.0-0.4) H 10/20/17 04:39 Baso # 0.0 K/mm3 (0.0-0.1) 10/20/17 04:39 Add Manual Diff Complete 10/16/17 09:56 Total Counted 100 10/16/17 09:56 Seg Neutrophils % 56.8 % (40.0-70.0) 10/20/17 04:39 Seg Neuts % (Manual) 80.0 % (40.0-70.0) H 10/16/17 09:56 Band Neutrophils % 0 % 10/16/17 09:56 Lymphocytes % (Manual) 6.0 % (13.4-35.0) L 10/16/17 09:56 Reactive Lymphs % (Man) 0 % 10/16/17 09:56 Monocytes % (Manual) 14.0 % (0.0-7.3) H 10/16/17 09:56 Eosinophils % (Manual) 0 % (0.0-4.3) 10/16/17 09:56 Basophils % (Manual) 0 % (0.0-1.8) 10/16/17 09:56 Metamyelocytes % 0 % 10/16/17 09:56 Myelocytes % 0 % 10/16/17 09:56 Promyelocytes % 0 % 10/16/17 09:56 Blast Cells % 0 % 10/16/17 09:56 Nucleated RBC % Not Reportable 10/16/17 09:56 Seg Neutrophils # 3.7 K/mm3 (1.8-7.7) 10/20/17 04:39 Seg Neutrophils # Man 16.5 K/mm3 (1.8-7.7) H 10/16/17 09:56 Band Neutrophils # 0.0 K/mm3 10/16/17 09:56 Lymphocytes # (Manual) 1.2 K/mm3 (1.2-5.4) 10/16/17 09:56 Abs React Lymphs (Man) 0.0 K/mm3 10/16/17 09:56 Monocytes # (Manual) 2.9 K/mm3 (0.0-0.8) H 10/16/17 09:56 Eosinophils # (Manual) 0.0 K/mm3 (0.0-0.4) 10/16/17 09:56 Basophils # (Manual) 0.0 K/mm3 (0.0-0.1) 10/16/17 09:56 Metamyelocytes # 0.0 K/mm3 10/16/17 09:56 Myelocytes # 0.0 K/mm3 10/16/17 09:56 Promyelocytes # 0.0 K/mm3 10/16/17 09:56 Blast Cells # 0.0 K/mm3 10/16/17 09:56 WBC Morphology Not Reportable 10/16/17 09:56 Hypersegmented Neuts Not Reportable 10/16/17 09:56 Hyposegmented Neuts Not Reportable 10/16/17 09:56 Hypogranular Neuts Not Reportable 10/16/17 09:56 Smudge Cells Not Reportable 10/16/17 09:56 Toxic Granulation Not Reportable 10/16/17 09:56 Toxic Vacuolation Not Reportable 10/16/17 09:56 Dohle Bodies Not Reportable 10/16/17 09:56 Pelger-Huet Anomaly Not Reportable 10/16/17 09:56 Usman Rods Not Reportable 10/16/17 09:56 Platelet Estimate Consistent w auto 10/16/17 09:56 Clumped Platelets Not Reportable 10/16/17 09:56 Plt Clumps, EDTA Not Reportable 10/16/17 09:56 Large Platelets Not Reportable 10/16/17 09:56 Giant Platelets Not Reportable 10/16/17 09:56 Platelet Satelliting Not Reportable 10/16/17 09:56 Plt Morphology Comment Not Reportable 10/16/17 09:56 RBC Morphology Normal 10/16/17 09:56 Dimorphic RBCs Not Reportable 10/16/17 09:56 Polychromasia Not Reportable 10/16/17 09:56 Hypochromasia Not Reportable 10/16/17 09:56 Poikilocytosis Not Reportable 10/16/17 09:56 Anisocytosis Not Reportable 10/16/17 09:56 Microcytosis Not Reportable 10/16/17 09:56 Macrocytosis Not Reportable 10/16/17 09:56 Spherocytes Not Reportable 10/16/17 09:56 Pappenheimer Bodies Not Reportable 10/16/17 09:56 Sickle Cells Not Reportable 10/16/17 09:56 Target Cells Not Reportable 10/16/17 09:56 Tear Drop Cells Not Reportable 10/16/17 09:56 Ovalocytes Not Reportable 10/16/17 09:56 Helmet Cells Not Reportable 10/16/17 09:56 Boliv[place] Bodies Not Reportable 10/16/17 09:56 [place] Rings Not Reportable 10/16/17 09:56 Dianne Cells Not Reportable 10/16/17 09:56 Bite Cells Not Reportable 10/16/17 09:56 Crenated Cell Not Reportable 10/16/17 09:56 Elliptocytes Not Reportable 10/16/17 09:56 Acanthocytes (Spur) Not Reportable 10/16/17 09:56 Rouleaux Not Reportable 10/16/17 09:56 Hemoglobin C Crystals Not Reportable 10/16/17 09:56 Schistocytes Not Reportable 10/16/17 09:56 Malaria parasites Not Reportable 10/16/17 09:56 Tawanda Bodies Not Reportable 10/16/17 09:56 Hem Pathologist Commnt No 10/16/17 09:56 PT 14.8 Sec. (12.2-14.9) 10/20/17 04:39 INR 1.10 (0.87-1.13) 10/20/17 04:39 APTT 31.5 Sec. (24.2-36.6) 10/20/17 04:39 POC ABG pH 7.443 (7.35-7.45) 10/16/17 10:38 POC ABG pCO2 33.3 (35-45) L 10/16/17 10:38 POC ABG pO2 87 (80-105) 10/16/17 10:38 POC ABG HCO3 22.8 10/16/17 10:38 POC ABG Total CO2 24 10/16/17 10:38 POC ABG O2 Sat 97 10/16/17 10:38 POC ABG Base Excess -1 10/16/17 10:38 VBG pH 7.434 (7.320-7.420) H 10/16/17 09:56 FiO2 2.5 % 10/16/17 10:38 Sodium 146 mmol/L (137-145) H 10/20/17 04:39 Potassium 3.6 mmol/L (3.6-5.0) 10/20/17 04:39 Chloride 111.1 mmol/L (98-107) H 10/20/17 04:39 Carbon Dioxide 26 mmol/L (22-30) 10/20/17 04:39 Anion Gap 13 mmol/L 10/20/17 04:39 BUN 25 mg/dL (9-20) H 10/20/17 04:39 Creatinine 0.9 mg/dL (0.8-1.5) 10/20/17 04:39 Estimated GFR > 60 ml/min 10/20/17 04:39 BUN/Creatinine Ratio 28 % 10/20/17 04:39 Glucose 105 mg/dL (75-100) H 10/20/17 04:39 POC Glucose 121 (70-105) H 10/21/17 05:48 Lactic Acid 1.60 mmol/L (0.7-2.0) 10/17/17 07:49 Calcium 7.8 mg/dL (8.4-10.2) L 10/20/17 04:39 Magnesium 2.00 mg/dL (1.7-2.3) 10/20/17 04:39 Total Bilirubin 1.40 mg/dL (0.1-1.2) H 10/20/17 04:39 AST 110 units/L (5-40) H 10/20/17 04:39 ALT 64 units/L (7-56) H 10/20/17 04:39 Alkaline Phosphatase 58 units/L (35-129) 10/20/17 04:39 Total Protein 5.0 g/dL (6.3-8.2) L 10/20/17 04:39 Albumin 2.6 g/dL (3.9-5) L 10/20/17 04:39 Albumin/Globulin Ratio 1.1 % 10/20/17 04:39 TSH 4.780 mlU/mL (0.270-4.200) H 10/16/17 09:56 Urine Color Ana (Yellow) 10/16/17 11:30 Urine Turbidity Clear (Clear) 10/16/17 11:30 Urine pH 5.0 (5.0-7.0) 10/16/17 11:30 Ur Specific [place] 1.026 (1.003-1.030) 10/16/17 11:30 Urine Protein 100 mg/dl mg/dL (Negative) 10/16/17 11:30 Urine Glucose (UA) Neg mg/dL (Negative) 10/16/17 11:30 Urine Ketones Tr mg/dL (Negative) 10/16/17 11:30 Urine Blood Lg (Negative) 10/16/17 11:30 Urine Nitrite Neg (Negative) 10/16/17 11:30 Urine Bilirubin Neg (Negative) 10/16/17 11:30 Urine Urobilinogen 2.0 mg/dL (<2.0) 10/16/17 11:30 Ur Leukocyte Esterase Neg (Negative) 10/16/17 11:30 Urine WBC (Auto) 10.0 /HPF (0.0-6.0) H 10/16/17 11:30 Urine RBC (Auto) 14.0 /HPF (0.0-6.0) 10/16/17 11:30 U Epithel Cells (Auto) 2.0 /HPF (0-13.0) 10/16/17 11:30 Urine Bacteria (Auto) 1+ /HPF (Negative) 10/16/17 11:30 Hyaline Casts 3 /LPF 10/16/17 11:30 Urine Mucus 2+ /HPF 10/16/17 11:30 Salicylates < 0.3 mg/dL (2.8-20.0) L 10/16/17 09:56 Urine Opiates Screen Presumptive negative 10/16/17 11:30 Urine Methadone Screen Presumptive negative 10/16/17 11:30 Acetaminophen < 15.0 ug/mL (10.0-30.0) 10/16/17 09:56 Ur Barbiturates Screen Presumptive negative 10/16/17 11:30 Valproic Acid 20.4 ug/mL (50-100) L 10/19/17 09:24 Ur Phencyclidine Scrn Presumptive negative 10/16/17 11:30 Ur Amphetamines Screen Presumptive negative 10/16/17 11:30 U Benzodiazepines Scrn Presumptive negative 10/16/17 11:30 Urine Cocaine Screen Presumptive negative 10/16/17 11:30 U Marijuana (THC) Screen Presumptive negative 10/16/17 11:30 Drugs of Abuse Note Disclamer 10/16/17 11:30 Plasma/Serum Alcohol < 0.01 gm% (0-0.07) 10/16/17 09:56
[2017-10-21] MEDS: COLACE PO SCH (10:08)
[2017-10-21] MEDS: HALFPRIN EC PO SCH (10:09)
[2017-10-21] MEDS: SINGULAIR PO SCH (10:09)
[2017-10-21] MEDS: VITAMIN D3 PO SCH (10:10)
[2017-10-21] MEDS: SYMMETREL PO SCH (10:10)
[2017-10-21] MEDS: ZETIA PO SCH (10:10)
[2017-10-21] MEDS: HALDOL IM PRN (13:53)
[2017-10-21] MEDS: D5/0.45NS 1,000 ML IV SCH (15:52)
--- NOTE | 2017-10-21 17:04 | Gastroenterology Progress Note ---
Assessment and Plan 1. Oropharyngeal dysphagia 2. Dementia 3. CAD s/p CABG -discussed at length with pts and daughter at bedside. will plan for egd/ peg tube placement on Monday ( believes that will be the day he is off plavix as well). Subjective Date of service: 10/21/17 Principal diagnosis: oropharyngeal dysphagia, AMS Interval history: pt seen and examined. pt's and daughter at bedside who provides history for pt. he has had progressive decline in mental status/adl's over last month. dobhoff placement attempted however unable to be placed. Objective - Exam Narrative Exam: Gen: NAD, somnolent/arousable CV: RRR Lungs: CTAB, non labored Abd: soft, nt, nd, +bs - Constitutional Vitals: Temp Pulse Resp BP Pulse Ox 98.3 F 83 20 110/68 96 10/21/17 15:58 10/21/17 15:57 10/21/17 15:58 10/21/17 15:58 10/21/17 15:57 - Labs CBC & Chem 7: 10/20/17 04:39 10/20/17 04:39 Labs: Laboratory Results - last 24 hr 10/21/17 05:48 POC Glucose 121 H
[2017-10-21] MEDS: LEVAQUIN 750MG/150ML 750 MG/150 ML BAG IV SCH (18:12)
[2017-10-22] MEDS: COLACE PO SCH ×3 (01:17→22:35)
[2017-10-22] MEDS: SYMMETREL PO SCH ×3 (01:17→22:34)
[2017-10-22] MEDS: ARICEPT PO SCH ×2 (01:22→22:35)
[2017-10-22] MEDS: D5/0.45NS 1,000 ML IV SCH ×2 (04:34→14:49)
[2017-10-22] MEDS: SYNTHROID PO SCH (05:10)
[2017-10-22 05:53] LABS: Basophils % (Auto) 0.5 % (0.0-1.8); Eosinophils % (Auto) 6.4 % (0.0-4.3); Hematocrit 38.4 % (35.5-45.6); Hemoglobin 13.1 gm/dl (11.8-15.2); Mean Corpuscular HGB Conc 34 % (32-34); Mean Corpuscular Hemoglobin 31 pg (28-32); Mean Corpuscular Volume 91 fl (84-94); Platelet Count 209 K/mm3 (140-440); Red Blood Count 4.21 M/mm3 (3.65-5.03); Red Cell Distribution Width 14.1 % (13.2-15.2); White Blood Count 7.4 K/mm3 (4.5-11.0)
[2017-10-22 06:11] LABS: Anion Gap 15 mmol/L; BUN/Creatinine Ratio 15; Blood Urea Nitrogen 12 mg/dL (9-20); Carbon Dioxide 23 mmol/L (22-30); Chloride 106.4 mmol/L (98-107); Glucose 106 mg/dL (75-100); Potassium 3.7 mmol/L (3.6-5.0); Sodium 141 mmol/L (137-145)
--- NOTE | 2017-10-22 09:01 | Progress Note ---
Assessment and Plan Assessment and plan: --Dehydration; secondary to dysphagia, nothing by mouth, IV fluids --dysphagia/failed modified barium swallow study PEG tomorrow, 10/23/2017 GI following, Unable to Place Dobbhoff , --lactic acidosis; corrected --Right-sided aspiration pneumonia , Continue antibiotics,follow cultures --Metabolic encephalopathy; neurochecks, mild improvement --Hypernatremia; corrected --Leukocytosis; due to sepsis and dehydration; resolved --Dementia; supportive care --Right hip pain; x-ray suspicion joint effusion, orthopedic evaluated the patient, advised physical therapy as tolerated --Transaminitis; trending down, --Acute renal failure; due to ATN, resolved --H/O schizophrenia, recurrent psych medications, psych evaluation and recommendations --DVT prophylaxis; SCDs --Continue 1013 --Full CODE STATUS Plan of care discussed with the family member at the bedside History Interval history: Patient seen and evaluated medical records reviewed No new events reported by the nursing staff Scheduled for PEG tomorrow Unable to place NG tube/Dobbhoff x2 yesterday Vital signs reviewed Hospitalist Physical - Constitutional Vitals: Temp Pulse Resp BP Pulse Ox 97.7 F 90 20 118/64 94 10/22/17 07:59 10/22/17 07:59 10/22/17 07:59 10/22/17 07:59 10/22/17 07:59 General appearance: Present: no acute distress, cachectic, other (dehydrated) - EENT Eyes: Present: PERRL, EOM intact - Neck Neck: Present: supple, normal ROM - Respiratory Respiratory effort: normal Respiratory: bilateral: diminished, negative: rales, rhonchi, wheezing - Cardiovascular Rhythm: regular Heart Sounds: Present: S1 & S2 - Extremities Extremities: no ischemia, No edema - Abdominal General gastrointestinal: soft, non-tender, non-distended, normal bowel sounds - Integumentary Integumentary: Present: clear, warm - Psychiatric Psychiatric: other (minimally communicative) - Neurologic Neurologic: other (minimally communicative) Results - Labs CBC & Chem 7: 10/22/17 04:50 10/22/17 04:50 Labs: Laboratory Last Values WBC 7.4 K/mm3 (4.5-11.0) 10/22/17 04:50 RBC 4.21 M/mm3 (3.65-5.03) 10/22/17 04:50 Hgb 13.1 gm/dl (11.8-15.2) 10/22/17 04:50 Hct 38.4 % (35.5-45.6) 10/22/17 04:50 MCV 91 fl (84-94) 10/22/17 04:50 MCH 31 pg (28-32) 10/22/17 04:50 MCHC 34 % (32-34) 10/22/17 04:50 RDW 14.1 % (13.2-15.2) 10/22/17 04:50 Plt Count 209 K/mm3 (140-440) 10/22/17 04:50 Lymph % (Auto) 18.4 % (13.4-35.0) 10/22/17 04:50 [place] % (Auto) 10.1 % (0.0-7.3) H 10/22/17 04:50 Eos % (Auto) 6.4 % (0.0-4.3) H 10/22/17 04:50 Baso % (Auto) 0.5 % (0.0-1.8) 10/22/17 04:50 Lymph # 1.4 K/mm3 (1.2-5.4) 10/22/17 04:50 [place] # 0.7 K/mm3 (0.0-0.8) 10/22/17 04:50 Eos # 0.5 K/mm3 (0.0-0.4) H 10/22/17 04:50 Baso # 0.0 K/mm3 (0.0-0.1) 10/22/17 04:50 Add Manual Diff Complete 10/16/17 09:56 Total Counted 100 10/16/17 09:56 Seg Neutrophils % 64.6 % (40.0-70.0) 10/22/17 04:50 Seg Neuts % (Manual) 80.0 % (40.0-70.0) H 10/16/17 09:56 Band Neutrophils % 0 % 10/16/17 09:56 Lymphocytes % (Manual) 6.0 % (13.4-35.0) L 10/16/17 09:56 Reactive Lymphs % (Man) 0 % 10/16/17 09:56 Monocytes % (Manual) 14.0 % (0.0-7.3) H 10/16/17 09:56 Eosinophils % (Manual) 0 % (0.0-4.3) 10/16/17 09:56 Basophils % (Manual) 0 % (0.0-1.8) 10/16/17 09:56 Metamyelocytes % 0 % 10/16/17 09:56 Myelocytes % 0 % 10/16/17 09:56 Promyelocytes % 0 % 10/16/17 09:56 Blast Cells % 0 % 10/16/17 09:56 Nucleated RBC % Not Reportable 10/16/17 09:56 Seg Neutrophils # 4.8 K/mm3 (1.8-7.7) 10/22/17 04:50 Seg Neutrophils # Man 16.5 K/mm3 (1.8-7.7) H 10/16/17 09:56 Band Neutrophils # 0.0 K/mm3 10/16/17 09:56 Lymphocytes # (Manual) 1.2 K/mm3 (1.2-5.4) 10/16/17 09:56 Abs React Lymphs (Man) 0.0 K/mm3 10/16/17 09:56 Monocytes # (Manual) 2.9 K/mm3 (0.0-0.8) H 10/16/17 09:56 Eosinophils # (Manual) 0.0 K/mm3 (0.0-0.4) 10/16/17 09:56 Basophils # (Manual) 0.0 K/mm3 (0.0-0.1) 10/16/17 09:56 Metamyelocytes # 0.0 K/mm3 10/16/17 09:56 Myelocytes # 0.0 K/mm3 10/16/17 09:56 Promyelocytes # 0.0 K/mm3 10/16/17 09:56 Blast Cells # 0.0 K/mm3 10/16/17 09:56 WBC Morphology Not Reportable 10/16/17 09:56 Hypersegmented Neuts Not Reportable 10/16/17 09:56 Hyposegmented Neuts Not Reportable 10/16/17 09:56 Hypogranular Neuts Not Reportable 10/16/17 09:56 Smudge Cells Not Reportable 10/16/17 09:56 Toxic Granulation Not Reportable 10/16/17 09:56 Toxic Vacuolation Not Reportable 10/16/17 09:56 Dohle Bodies Not Reportable 10/16/17 09:56 Pelger-Huet Anomaly Not Reportable 10/16/17 09:56 Usman Rods Not Reportable 10/16/17 09:56 Platelet Estimate Consistent w auto 10/16/17 09:56 Clumped Platelets Not Reportable 10/16/17 09:56 Plt Clumps, EDTA Not Reportable 10/16/17 09:56 Large Platelets Not Reportable 10/16/17 09:56 Giant Platelets Not Reportable 10/16/17 09:56 Platelet Satelliting Not Reportable 10/16/17 09:56 Plt Morphology Comment Not Reportable 10/16/17 09:56 RBC Morphology Normal 10/16/17 09:56 Dimorphic RBCs Not Reportable 10/16/17 09:56 Polychromasia Not Reportable 10/16/17 09:56 Hypochromasia Not Reportable 10/16/17 09:56 Poikilocytosis Not Reportable 10/16/17 09:56 Anisocytosis Not Reportable 10/16/17 09:56 Microcytosis Not Reportable 10/16/17 09:56 Macrocytosis Not Reportable 10/16/17 09:56 Spherocytes Not Reportable 10/16/17 09:56 Pappenheimer Bodies Not Reportable 10/16/17 09:56 Sickle Cells Not Reportable 10/16/17 09:56 Target Cells Not Reportable 10/16/17 09:56 Tear Drop Cells Not Reportable 10/16/17 09:56 Ovalocytes Not Reportable 10/16/17 09:56 Helmet Cells Not Reportable 10/16/17 09:56 [place] Bodies Not Reportable 10/16/17 09:56 [place] Rings Not Reportable 10/16/17 09:56 [place] Cells Not Reportable 10/16/17 09:56 Bite Cells Not Reportable 10/16/17 09:56 Crenated Cell Not Reportable 10/16/17 09:56 Elliptocytes Not Reportable 10/16/17 09:56 Acanthocytes (Spur) Not Reportable 10/16/17 09:56 Rouleaux Not Reportable 10/16/17 09:56 Hemoglobin C Crystals Not Reportable 10/16/17 09:56 Schistocytes Not Reportable 10/16/17 09:56 Malaria parasites Not Reportable 10/16/17 09:56 [place] Bodies Not Reportable 10/16/17 09:56 Hem Pathologist Commnt No 10/16/17 09:56 PT 14.8 Sec. (12.2-14.9) 10/20/17 04:39 INR 1.10 (0.87-1.13) 10/20/17 04:39 APTT 31.5 Sec. (24.2-36.6) 10/20/17 04:39 POC ABG pH 7.443 (7.35-7.45) 10/16/17 10:38 POC ABG pCO2 33.3 (35-45) L 10/16/17 10:38 POC ABG pO2 87 (80-105) 10/16/17 10:38 POC ABG HCO3 22.8 10/16/17 10:38 POC ABG Total CO2 24 10/16/17 10:38 POC ABG O2 Sat 97 10/16/17 10:38 POC ABG Base Excess -1 10/16/17 10:38 VBG pH 7.434 (7.320-7.420) H 10/16/17 09:56 FiO2 2.5 % 10/16/17 10:38 Sodium 141 mmol/L (137-145) 10/22/17 04:50 Potassium 3.7 mmol/L (3.6-5.0) 10/22/17 04:50 Chloride 106.4 mmol/L (98-107) 10/22/17 04:50 Carbon Dioxide 23 mmol/L (22-30) 10/22/17 04:50 Anion Gap 15 mmol/L 10/22/17 04:50 BUN 12 mg/dL (9-20) 10/22/17 04:50 Creatinine 0.8 mg/dL (0.8-1.5) 10/22/17 04:50 Estimated GFR > 60 ml/min 10/22/17 04:50 BUN/Creatinine Ratio 15 % 10/22/17 04:50 Glucose 106 mg/dL (75-100) H 10/22/17 04:50 POC Glucose 117 (70-105) H 10/22/17 06:28 Lactic Acid 1.60 mmol/L (0.7-2.0) 10/17/17 07:49 Calcium 8.0 mg/dL (8.4-10.2) L 10/22/17 04:50 Magnesium 1.90 mg/dL (1.7-2.3) 10/22/17 04:50 Total Bilirubin 1.40 mg/dL (0.1-1.2) H 10/20/17 04:39 AST 110 units/L (5-40) H 10/20/17 04:39 ALT 64 units/L (7-56) H 10/20/17 04:39 Alkaline Phosphatase 58 units/L (35-129) 10/20/17 04:39 Total Protein 5.0 g/dL (6.3-8.2) L 10/20/17 04:39 Albumin 2.6 g/dL (3.9-5) L 10/20/17 04:39 Albumin/Globulin Ratio 1.1 % 10/20/17 04:39 TSH 4.780 mlU/mL (0.270-4.200) H 10/16/17 09:56 Urine Color Ana (Yellow) 10/16/17 11:30 Urine Turbidity Clear (Clear) 10/16/17 11:30 Urine pH 5.0 (5.0-7.0) 10/16/17 11:30 Ur Specific [place] 1.026 (1.003-1.030) 10/16/17 11:30 Urine Protein 100 mg/dl mg/dL (Negative) 10/16/17 11:30 Urine Glucose (UA) Neg mg/dL (Negative) 10/16/17 11:30 Urine Ketones Tr mg/dL (Negative) 10/16/17 11:30 Urine Blood Lg (Negative) 10/16/17 11:30 Urine Nitrite Neg (Negative) 10/16/17 11:30 Urine Bilirubin Neg (Negative) 10/16/17 11:30 Urine Urobilinogen 2.0 mg/dL (<2.0) 10/16/17 11:30 Ur Leukocyte Esterase Neg (Negative) 10/16/17 11:30 Urine WBC (Auto) 10.0 /HPF (0.0-6.0) H 10/16/17 11:30 Urine RBC (Auto) 14.0 /HPF (0.0-6.0) 10/16/17 11:30 U Epithel Cells (Auto) 2.0 /HPF (0-13.0) 10/16/17 11:30 Urine Bacteria (Auto) 1+ /HPF (Negative) 10/16/17 11:30 Hyaline Casts 3 /LPF 10/16/17 11:30 Urine Mucus 2+ /HPF 10/16/17 11:30 Salicylates < 0.3 mg/dL (2.8-20.0) L 10/16/17 09:56 Urine Opiates Screen Presumptive negative 10/16/17 11:30 Urine Methadone Screen Presumptive negative 10/16/17 11:30 Acetaminophen < 15.0 ug/mL (10.0-30.0) 10/16/17 09:56 Ur Barbiturates Screen Presumptive negative 10/16/17 11:30 Valproic Acid 20.4 ug/mL (50-100) L 10/19/17 09:24 Ur Phencyclidine Scrn Presumptive negative 10/16/17 11:30 Ur Amphetamines Screen Presumptive negative 10/16/17 11:30 U Benzodiazepines Scrn Presumptive negative 10/16/17 11:30 Urine Cocaine Screen Presumptive negative 10/16/17 11:30 U Marijuana (THC) Screen Presumptive negative 10/16/17 11:30 Drugs of Abuse Note Disclamer 10/16/17 11:30 Plasma/Serum Alcohol < 0.01 gm% (0-0.07) 10/16/17 09:56
[2017-10-22] MEDS: ZETIA PO SCH (11:13)
[2017-10-22] MEDS: VITAMIN D3 PO SCH (11:13)
[2017-10-22] MEDS: HALFPRIN EC PO SCH (11:13)
[2017-10-22] MEDS: SINGULAIR PO SCH (11:13)
[2017-10-22] MEDS: LEVAQUIN 750MG/150ML 750 MG/150 ML BAG IV SCH (19:56)
--- NOTE | 2017-10-22 21:03 | Progress Note ---
Subjective - Reason for Consult Reason for consult: psych eval - Chief Complaint Chief complaint: Patient is a 77-year-old white male brought from [facility] for an evaluation of altered mental status. Per sitter, patient has remained calm on the unit. No SI/HI gestures. Remains confused but redirectable. Mental Status Exam - Vital signs Last Vital Signs Temp 98.4 F 10/22/17 19:59 Pulse 86 10/22/17 19:59 Resp 20 10/22/17 19:59 BP 124/68 10/22/17 19:59 Pulse Ox 95 10/22/17 19:59 - Exam Orientation: person Affect: normal Mood: other (no answer) Thought Process: Disoriented Perceptions: none Speech: paucity Concentration: unable to pay attention Motor activity: normal Level of consciousness: sedated Memory: Recent Impaired, Remote Impaired Interaction: cooperative Assessment and Plan Assessment and Plan Impression: Hx of Dementia. Patient remains the same as when last seen. Medical: Metabolic Encephalopathy/Hypernatremia Recommendation/Plan: Continue 1013. Decrease Zydis to 5mg po QHS given that he isn't displaying any current psychosis and mood seems to have stabilized. The agitation will also be followed to see if that increases. Patient did receive a PRN today per JAN and will utilize the PRNS for his altered mental status. Will observe the results tomorrow of the change.
[2017-10-23 01:06] LABS: INR 1.09 (0.87-1.13)
[2017-10-23] MEDS: D5/0.45NS 1,000 ML IV SCH ×2 (02:24→12:57)
[2017-10-23] MEDS: SYNTHROID PO SCH (06:45)
[2017-10-23 06:56] LABS: Anion Gap 13 mmol/L; BUN/Creatinine Ratio 16; Blood Urea Nitrogen 11 mg/dL (9-20); Calcium 8.1 mg/dL (8.4-10.2); Carbon Dioxide 25 mmol/L (22-30); Chloride 104.7 mmol/L (98-107); Glucose 105 mg/dL (75-100); Potassium 3.9 mmol/L (3.6-5.0); Sodium 139 mmol/L (137-145)
[2017-10-23] MEDS ORDERED: WATER FOR IRRIG STERILE IR ONE (07:57)
[2017-10-23] MEDS ORDERED: NACL 0.9% 1000 ML 1,000 ML IV SCH (08:00)
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
--- NOTE | 2017-10-23 08:06 | Anesthesia Day of Surgery ---
Anesthesia Day of Surgery - Day of Surgery Patient Examined: No Patient H&P Reviewed: No Patient is NPO: No
[2017-10-23] MEDS ORDERED: ANCEF/STERILE WATER 2 GM/20 ML 2 GM/20 ML SYRINGE IV ONE (08:11)
[2017-10-23] MEDS ORDERED: DIPRIVAN 10 MG/ML IV ONE ×2 (08:24→08:25)
[2017-10-23] MEDS ORDERED: ANCEF/STERILE WATER 2 GM/20 ML 2 GM/20 ML SYRINGE IV NR (08:30)
--- NOTE | 2017-10-23 08:35 | Progress Note ---
Assessment and Plan Assessment and plan: --dysphagia/failed modified barium swallow study s/p PEG placement, Tube feeds per protocol --lactic acidosis; corrected --Right-sided aspiration pneumonia , Continue antibiotics,follow cultures --Metabolic encephalopathy; neurochecks, mild improvement --Hypernatremia; corrected --Leukocytosis; due to sepsis and dehydration; resolved --Dementia; supportive care --Right hip pain; x-ray suspicion joint effusion, orthopedic evaluated the patient, advised physical therapy as tolerated --Transaminitis; trending down, --Acute renal failure; due to ATN, resolved --H/O schizophrenia, recurrent psych medications, psych evaluation and recommendations --DVT prophylaxis; SCDs --Continue 1013/disposition per psych --DC planning. Case management --Full CODE STATUS Plan of care discussed with the family member at the bedside History Interval history: Patient seen and examined this morning medical records reviewed Status post PEG, no new complaints at the bedside Vital signs reviewed stable Hospitalist Physical - Constitutional Vitals: Temp Pulse Resp BP Pulse Ox 98.8 F 87 18 139/69 94 10/23/17 08:03 10/23/17 08:03 10/23/17 08:03 10/23/17 08:03 10/23/17 08:03 General appearance: Present: no acute distress, cachectic, other (dehydrated) - EENT Eyes: Present: PERRL, EOM intact - Neck Neck: Present: supple, normal ROM - Respiratory Respiratory effort: normal Respiratory: negative: rales, rhonchi, wheezing - Cardiovascular Rhythm: regular Heart Sounds: Present: S1 & S2 - Extremities Extremities: no ischemia, No edema - Abdominal General gastrointestinal: soft, non-tender, non-distended, normal bowel sounds - Integumentary Integumentary: Present: clear, warm - Psychiatric Psychiatric: appropriate mood/affect, other (confused at times) - Neurologic Neurologic: moves all extremities Results - Labs CBC & Chem 7: 10/22/17 04:50 10/23/17 05:27 Labs: Laboratory Last Values WBC 7.4 K/mm3 (4.5-11.0) 10/22/17 04:50 RBC 4.21 M/mm3 (3.65-5.03) 10/22/17 04:50 Hgb 13.1 gm/dl (11.8-15.2) 10/22/17 04:50 Hct 38.4 % (35.5-45.6) 10/22/17 04:50 MCV 91 fl (84-94) 10/22/17 04:50 MCH 31 pg (28-32) 10/22/17 04:50 MCHC 34 % (32-34) 10/22/17 04:50 RDW 14.1 % (13.2-15.2) 10/22/17 04:50 Plt Count 209 K/mm3 (140-440) 10/22/17 04:50 Lymph % (Auto) 18.4 % (13.4-35.0) 10/22/17 04:50 [place] % (Auto) 10.1 % (0.0-7.3) H 10/22/17 04:50 Eos % (Auto) 6.4 % (0.0-4.3) H 10/22/17 04:50 Baso % (Auto) 0.5 % (0.0-1.8) 10/22/17 04:50 Lymph # 1.4 K/mm3 (1.2-5.4) 10/22/17 04:50 [place] # 0.7 K/mm3 (0.0-0.8) 10/22/17 04:50 Eos # 0.5 K/mm3 (0.0-0.4) H 10/22/17 04:50 Baso # 0.0 K/mm3 (0.0-0.1) 10/22/17 04:50 Add Manual Diff Complete 10/16/17 09:56 Total Counted 100 10/16/17 09:56 Seg Neutrophils % 64.6 % (40.0-70.0) 10/22/17 04:50 Seg Neuts % (Manual) 80.0 % (40.0-70.0) H 10/16/17 09:56 Band Neutrophils % 0 % 10/16/17 09:56 Lymphocytes % (Manual) 6.0 % (13.4-35.0) L 10/16/17 09:56 Reactive Lymphs % (Man) 0 % 10/16/17 09:56 Monocytes % (Manual) 14.0 % (0.0-7.3) H 10/16/17 09:56 Eosinophils % (Manual) 0 % (0.0-4.3) 10/16/17 09:56 Basophils % (Manual) 0 % (0.0-1.8) 10/16/17 09:56 Metamyelocytes % 0 % 10/16/17 09:56 Myelocytes % 0 % 10/16/17 09:56 Promyelocytes % 0 % 10/16/17 09:56 Blast Cells % 0 % 10/16/17 09:56 Nucleated RBC % Not Reportable 10/16/17 09:56 Seg Neutrophils # 4.8 K/mm3 (1.8-7.7) 10/22/17 04:50 Seg Neutrophils # Man 16.5 K/mm3 (1.8-7.7) H 10/16/17 09:56 Band Neutrophils # 0.0 K/mm3 10/16/17 09:56 Lymphocytes # (Manual) 1.2 K/mm3 (1.2-5.4) 10/16/17 09:56 Abs React Lymphs (Man) 0.0 K/mm3 10/16/17 09:56 Monocytes # (Manual) 2.9 K/mm3 (0.0-0.8) H 10/16/17 09:56 Eosinophils # (Manual) 0.0 K/mm3 (0.0-0.4) 10/16/17 09:56 Basophils # (Manual) 0.0 K/mm3 (0.0-0.1) 10/16/17 09:56 Metamyelocytes # 0.0 K/mm3 10/16/17 09:56 Myelocytes # 0.0 K/mm3 10/16/17 09:56 Promyelocytes # 0.0 K/mm3 10/16/17 09:56 Blast Cells # 0.0 K/mm3 10/16/17 09:56 WBC Morphology Not Reportable 10/16/17 09:56 Hypersegmented Neuts Not Reportable 10/16/17 09:56 Hyposegmented Neuts Not Reportable 10/16/17 09:56 Hypogranular Neuts Not Reportable 10/16/17 09:56 Smudge Cells Not Reportable 10/16/17 09:56 Toxic Granulation Not Reportable 10/16/17 09:56 Toxic Vacuolation Not Reportable 10/16/17 09:56 Dohle Bodies Not Reportable 10/16/17 09:56 Pelger-Huet Anomaly Not Reportable 10/16/17 09:56 Usman Rods Not Reportable 10/16/17 09:56 Platelet Estimate Consistent w auto 10/16/17 09:56 Clumped Platelets Not Reportable 10/16/17 09:56 Plt Clumps, EDTA Not Reportable 10/16/17 09:56 Large Platelets Not Reportable 10/16/17 09:56 Giant Platelets Not Reportable 10/16/17 09:56 Platelet Satelliting Not Reportable 10/16/17 09:56 Plt Morphology Comment Not Reportable 10/16/17 09:56 RBC Morphology Normal 10/16/17 09:56 Dimorphic RBCs Not Reportable 10/16/17 09:56 Polychromasia Not Reportable 10/16/17 09:56 Hypochromasia Not Reportable 10/16/17 09:56 Poikilocytosis Not Reportable 10/16/17 09:56 Anisocytosis Not Reportable 10/16/17 09:56 Microcytosis Not Reportable 10/16/17 09:56 Macrocytosis Not Reportable 10/16/17 09:56 Spherocytes Not Reportable 10/16/17 09:56 Pappenheimer Bodies Not Reportable 10/16/17 09:56 Sickle Cells Not Reportable 10/16/17 09:56 Target Cells Not Reportable 10/16/17 09:56 Tear Drop Cells Not Reportable 10/16/17 09:56 Ovalocytes Not Reportable 10/16/17 09:56 Helmet Cells Not Reportable 10/16/17 09:56 [place] Bodies Not Reportable 10/16/17 09:56 [place] Rings Not Reportable 10/16/17 09:56 [place] Cells Not Reportable 10/16/17 09:56 Bite Cells Not Reportable 10/16/17 09:56 Crenated Cell Not Reportable 10/16/17 09:56 Elliptocytes Not Reportable 10/16/17 09:56 Acanthocytes (Spur) Not Reportable 10/16/17 09:56 Rouleaux Not Reportable 10/16/17 09:56 Hemoglobin C Crystals Not Reportable 10/16/17 09:56 Schistocytes Not Reportable 10/16/17 09:56 Malaria parasites Not Reportable 10/16/17 09:56 [place] Bodies Not Reportable 10/16/17 09:56 Hem Pathologist Commnt No 10/16/17 09:56 PT 14.7 Sec. (12.2-14.9) 10/23/17 00:14 INR 1.09 (0.87-1.13) 10/23/17 00:14 APTT 31.5 Sec. (24.2-36.6) 10/20/17 04:39 POC ABG pH 7.443 (7.35-7.45) 10/16/17 10:38 POC ABG pCO2 33.3 (35-45) L 10/16/17 10:38 POC ABG pO2 87 (80-105) 10/16/17 10:38 POC ABG HCO3 22.8 10/16/17 10:38 POC ABG Total CO2 24 10/16/17 10:38 POC ABG O2 Sat 97 10/16/17 10:38 POC ABG Base Excess -1 10/16/17 10:38 VBG pH 7.434 (7.320-7.420) H 10/16/17 09:56 FiO2 2.5 % 10/16/17 10:38 Sodium 139 mmol/L (137-145) 10/23/17 05:27 Potassium 3.9 mmol/L (3.6-5.0) 10/23/17 05:27 Chloride 104.7 mmol/L (98-107) 10/23/17 05:27 Carbon Dioxide 25 mmol/L (22-30) 10/23/17 05:27 Anion Gap 13 mmol/L 10/23/17 05:27 BUN 11 mg/dL (9-20) 10/23/17 05:27 Creatinine 0.7 mg/dL (0.8-1.5) L 10/23/17 05:27 Estimated GFR > 60 ml/min 10/23/17 05:27 BUN/Creatinine Ratio 16 % 10/23/17 05:27 Glucose 105 mg/dL (75-100) H 10/23/17 05:27 POC Glucose 122 (70-105) H 10/23/17 06:16 Lactic Acid 1.60 mmol/L (0.7-2.0) 10/17/17 07:49 Calcium 8.1 mg/dL (8.4-10.2) L 10/23/17 05:27 Magnesium 1.90 mg/dL (1.7-2.3) 10/22/17 04:50 Total Bilirubin 1.40 mg/dL (0.1-1.2) H 10/20/17 04:39 AST 110 units/L (5-40) H 10/20/17 04:39 ALT 64 units/L (7-56) H 10/20/17 04:39 Alkaline Phosphatase 58 units/L (35-129) 10/20/17 04:39 Total Protein 5.0 g/dL (6.3-8.2) L 10/20/17 04:39 Albumin 2.6 g/dL (3.9-5) L 10/20/17 04:39 Albumin/Globulin Ratio 1.1 % 10/20/17 04:39 TSH 4.780 mlU/mL (0.270-4.200) H 10/16/17 09:56 Urine Color Ana (Yellow) 10/16/17 11:30 Urine Turbidity Clear (Clear) 10/16/17 11:30 Urine pH 5.0 (5.0-7.0) 10/16/17 11:30 Ur Specific [place] 1.026 (1.003-1.030) 10/16/17 11:30 Urine Protein 100 mg/dl mg/dL (Negative) 10/16/17 11:30 Urine Glucose (UA) Neg mg/dL (Negative) 10/16/17 11:30 Urine Ketones Tr mg/dL (Negative) 10/16/17 11:30 Urine Blood Lg (Negative) 10/16/17 11:30 Urine Nitrite Neg (Negative) 10/16/17 11:30 Urine Bilirubin Neg (Negative) 10/16/17 11:30 Urine Urobilinogen 2.0 mg/dL (<2.0) 10/16/17 11:30 Ur Leukocyte Esterase Neg (Negative) 10/16/17 11:30 Urine WBC (Auto) 10.0 /HPF (0.0-6.0) H 10/16/17 11:30 Urine RBC (Auto) 14.0 /HPF (0.0-6.0) 10/16/17 11:30 U Epithel Cells (Auto) 2.0 /HPF (0-13.0) 10/16/17 11:30 Urine Bacteria (Auto) 1+ /HPF (Negative) 10/16/17 11:30 Hyaline Casts 3 /LPF 10/16/17 11:30 Urine Mucus 2+ /HPF 10/16/17 11:30 Salicylates < 0.3 mg/dL (2.8-20.0) L 10/16/17 09:56 Urine Opiates Screen Presumptive negative 10/16/17 11:30 Urine Methadone Screen Presumptive negative 10/16/17 11:30 Acetaminophen < 15.0 ug/mL (10.0-30.0) 10/16/17 09:56 Ur Barbiturates Screen Presumptive negative 10/16/17 11:30 Valproic Acid 20.4 ug/mL (50-100) L 10/19/17 09:24 Ur Phencyclidine Scrn Presumptive negative 10/16/17 11:30 Ur Amphetamines Screen Presumptive negative 10/16/17 11:30 U Benzodiazepines Scrn Presumptive negative 10/16/17 11:30 Urine Cocaine Screen Presumptive negative 10/16/17 11:30 U Marijuana (THC) Screen Presumptive negative 10/16/17 11:30 Drugs of Abuse Note Disclamer 10/16/17 11:30 Plasma/Serum Alcohol < 0.01 gm% (0-0.07) 10/16/17 09:56
--- NOTE | 2017-10-23 08:44 | Post Operative Note ---
Pre-op diagnosis: oropharyngeal dysphagia Post-op diagnosis: other (hiatal hernia, fundic gland appearing gastric polyps, successful PEG tube placement) Findings: EGD with PEG tube placement hiatal hernia, fundic gland appearing polyps, successful peg placement Procedure: EGD with PEG tube placement Anesthesia: MAC Surgeon: BARRETT SNYDER Estimated blood loss: minimal Pathology: none Condition: stable Disposition: floor
--- NOTE | 2017-10-23 08:51 | Operative Report ---
Operative Report Operative Report: EGD with PEG TUBE PLACEMENT Date of procedure: 10/23/2017 Endoscopist: Junior Galindo Pre-op indication: oropharyngeal dysphagia Post-op findings: hiatal hernia, successful peg tube placement Anesthesia/Medications: MAC, ancef Estimated Blood Loss: minimal Complications: No immediate complications Procedure: After consent was obtained from the patient's , the patent was placed in the supine position. The fujinon upper endoscope was inserted into the patient' s mouth under direct vision, and advanced to the 2nd portion of duodenum without difficulty. The views of the mucosa were good. The patient tolerated the procedure well. The patient's vital signs were monitored continuously throughout the procedure. Using finger indentation and tranillumination from endoscope, site for peg tube placement was identified. The site was sterilized using standard fashion. Lidocaine was injected at the insertion site. Incision was made, followed by placement of trochar with wire advancement. The endoscope was removed and peg tube was inserted using pull technique, with external bumper at 4 cm. Endoscope was re-inserted and showed good positioning of the internal bumper. Findings: Hiatal hernia, otherwise the esophagus appeared normal. Multiple fundic gland appearing polyps, otherwise the stomach appeared normal. Successful PEG tube placement at anterior wall of abdomen. External bumper at 4cm. The duodenum appeared normal. Impression: 1. Successful PEG tube placement as above Recommendations: -okay to use PEG tube for medications after 2 hours -consult nutrition for feeding tube recommendations. Tube feeds can be started after 4-6 hours -keep abdominal binder on at all times -post peg care daily
--- NOTE | 2017-10-23 09:08 | Post Anesthesia Evaluation ---
- Post Anesthesia Evaluation Patient Participated: No Airway Patent: Yes Stable Respiratory Function: Yes Temp > 96.8F: Yes Pain Manageable: Yes Adequeate Hydration: Yes Anesthesia Complications: No
--- NOTE | 2017-10-23 10:40 | Progress Note ---
Subjective - Reason for Consult Consult date: 10/23/17 Reason for consult: Psychiatry Follow-up - Chief Complaint Chief complaint: Patient is a 77-year-old white male brought from [facility] for an evaluation of altered mental status. Upon my arrival to the patient's room, he had just arrived from the PACU (S/P Peg Tube placement). Today patient is drowsy, but opens his eyes when his name is called. Per his , she stated that he had a "pretty good night." No gestures of SI/HI's. Mental Status Exam - Vital signs Last Vital Signs Temp 98.0 F 10/23/17 08:46 Pulse 81 10/23/17 09:16 Resp 18 10/23/17 09:16 BP 139/81 10/23/17 09:16 Pulse Ox 93 10/23/17 09:16 - Exam Narrative exam: MSE: Appearance: drowsy Behavior: eyes closed Speech: regular rate and loud tone Mood: unable to assess Affect: flat Thought Process: unable to assess Thought Content: no gestures of SI/HI's and AVH's Motor Activity: lying in bed Cognition: unable to assess Insight: unable to assess Judgment: unable to assess Assessment and Plan Impression: Hx of Dementia. Today patient is drowsy during assessment. S/P PEG tube placement earlier this morning. NA 139. Medical: Metabolic Encephalopathy/Hypernatremia Recommendation/Plan: Rescind 1013. Continue Zyprexa Zydis (ODT) 5 mg PO HS for mood, Depakote Sprinkles 250 mg QAM for mood, and Depakote Sprinkles 500 mg HS for mood, and Aricept 10 mg PO HS for dementia symptoms. The Zyprexa ODT tablet can dissolve on patient's tongue. Burnishing Machine Operator involvement, patient may need placement once discharged. Psychiatry signoff this patient. Recommend the following below: 1. Frequently reorient patient and involve him/her in their care (simple explanations of procedures, tests, medications). 2. Lights on and shades open during daytime hours. 3. Try to avoid unnecessary interruptions to sleep during nighttime hours. 4. Obtain glasses, hearing aids from home if patient uses these at baseline. 5. Avoid medications that may exacerbate delirium (especially narcotics, benzodiazepines, barbiturates, ambien, lunesta, and medications with excessive anticholinergic properties). 6. Recommend Haldol 2 mg IM Q6hrs PRN for acute agitation.
[2017-10-23] MEDS: COLACE PO SCH ×2 (10:56→22:50)
[2017-10-23] MEDS: HALFPRIN EC PO SCH (10:58)
[2017-10-23] MEDS: SINGULAIR PO SCH (10:58)
[2017-10-23] MEDS: SYMMETREL PO SCH ×2 (10:59→22:46)
[2017-10-23] MEDS: VITAMIN D3 PO SCH (10:59)
[2017-10-23] MEDS: ZETIA PO SCH (10:59)
[2017-10-23] MEDS ORDERED: SIMPLE SYRUP FEEDTUBE PRN ×2 (15:40)
[2017-10-23] MEDS ORDERED: SODIUM BICARBONATE FEEDTUBE PRN (15:40)
[2017-10-23] MEDS ORDERED: PANCREAZE DR 10,500 UNIT FEEDTUBE PRN (15:40)
--- NOTE | 2017-10-23 16:53 | Progress Note ---
History Interval history: Patient seen and evaluated this morning after he came back from surgery Status post PEG placement, tolerated the procedure well, sedated Vital signs reviewed at the bedside Hospitalist Physical - Constitutional Vitals: Temp Pulse Resp BP Pulse Ox 98.7 F 102 H 18 140/79 95 10/23/17 16:02 10/23/17 16:02 10/23/17 16:02 10/23/17 16:02 10/23/17 16:02 General appearance: Present: no acute distress, other (dehydrated) - EENT Eyes: Present: PERRL, EOM intact - Neck Neck: Present: supple, normal ROM - Respiratory Respiratory effort: normal Respiratory: bilateral: diminished, negative: rales, rhonchi, wheezing - Cardiovascular Rhythm: regular Heart Sounds: Present: S1 & S2 - Extremities Extremities: no ischemia, No edema Peripheral Pulses: within normal limits - Abdominal General gastrointestinal: soft, non-tender, non-distended, normal bowel sounds - Integumentary Integumentary: Present: clear, warm - Psychiatric Psychiatric: cooperative, other ( confused at times) - Neurologic Neurologic: CNII-XII intact, moves all extremities Results - Labs CBC & Chem 7: 10/22/17 04:50 10/23/17 05:27 Labs: Laboratory Last Values WBC 7.4 K/mm3 (4.5-11.0) 10/22/17 04:50 RBC 4.21 M/mm3 (3.65-5.03) 10/22/17 04:50 Hgb 13.1 gm/dl (11.8-15.2) 10/22/17 04:50 Hct 38.4 % (35.5-45.6) 10/22/17 04:50 MCV 91 fl (84-94) 10/22/17 04:50 MCH 31 pg (28-32) 10/22/17 04:50 MCHC 34 % (32-34) 10/22/17 04:50 RDW 14.1 % (13.2-15.2) 10/22/17 04:50 Plt Count 209 K/mm3 (140-440) 10/22/17 04:50 Lymph % (Auto) 18.4 % (13.4-35.0) 10/22/17 04:50 [place] % (Auto) 10.1 % (0.0-7.3) H 12/17/17 04:50 Eos % (Auto) 6.4 % (0.0-4.3) H 10/22/17 04:50 Baso % (Auto) 0.5 % (0.0-1.8) 10/22/17 04:50 Lymph # 1.4 K/mm3 (1.2-5.4) 10/22/17 04:50 [place] # 0.7 K/mm3 (0.0-0.8) 10/22/17 04:50 Eos # 0.5 K/mm3 (0.0-0.4) H 10/22/17 04:50 Baso # 0.0 K/mm3 (0.0-0.1) 10/22/17 04:50 Add Manual Diff Complete 10/16/17 09:56 Total Counted 100 10/16/17 09:56 Seg Neutrophils % 64.6 % (40.0-70.0) 10/22/17 04:50 Seg Neuts % (Manual) 80.0 % (40.0-70.0) H 10/16/17 09:56 Band Neutrophils % 0 % 10/16/17 09:56 Lymphocytes % (Manual) 6.0 % (13.4-35.0) L 10/16/17 09:56 Reactive Lymphs % (Man) 0 % 10/16/17 09:56 Monocytes % (Manual) 14.0 % (0.0-7.3) H 10/16/17 09:56 Eosinophils % (Manual) 0 % (0.0-4.3) 10/16/17 09:56 Basophils % (Manual) 0 % (0.0-1.8) 10/16/17 09:56 Metamyelocytes % 0 % 10/16/17 09:56 Myelocytes % 0 % 10/16/17 09:56 Promyelocytes % 0 % 10/16/17 09:56 Blast Cells % 0 % 10/16/17 09:56 Nucleated RBC % Not Reportable 10/16/17 09:56 Seg Neutrophils # 4.8 K/mm3 (1.8-7.7) 10/22/17 04:50 Seg Neutrophils # Man 16.5 K/mm3 (1.8-7.7) H 10/16/17 09:56 Band Neutrophils # 0.0 K/mm3 10/16/17 09:56 Lymphocytes # (Manual) 1.2 K/mm3 (1.2-5.4) 10/16/17 09:56 Abs React Lymphs (Man) 0.0 K/mm3 10/16/17 09:56 Monocytes # (Manual) 2.9 K/mm3 (0.0-0.8) H 10/16/17 09:56 Eosinophils # (Manual) 0.0 K/mm3 (0.0-0.4) 10/16/17 09:56 Basophils # (Manual) 0.0 K/mm3 (0.0-0.1) 10/16/17 09:56 Metamyelocytes # 0.0 K/mm3 10/16/17 09:56 Myelocytes # 0.0 K/mm3 10/16/17 09:56 Promyelocytes # 0.0 K/mm3 10/16/17 09:56 Blast Cells # 0.0 K/mm3 10/16/17 09:56 WBC Morphology Not Reportable 10/16/17 09:56 Hypersegmented Neuts Not Reportable 10/16/17 09:56 Hyposegmented Neuts Not Reportable 10/16/17 09:56 Hypogranular Neuts Not Reportable 10/16/17 09:56 Smudge Cells Not Reportable 10/16/17 09:56 Toxic Granulation Not Reportable 10/16/17 09:56 Toxic Vacuolation Not Reportable 10/16/17 09:56 Dohle Bodies Not Reportable 10/16/17 09:56 Pelger-Huet Anomaly Not Reportable 10/16/17 09:56 Usman Rods Not Reportable 10/16/17 09:56 Platelet Estimate Consistent w auto 10/16/17 09:56 Clumped Platelets Not Reportable 10/16/17 09:56 Plt Clumps, EDTA Not Reportable 10/16/17 09:56 Large Platelets Not Reportable 10/16/17 09:56 Giant Platelets Not Reportable 10/16/17 09:56 Platelet Satelliting Not Reportable 10/16/17 09:56 Plt Morphology Comment Not Reportable 10/16/17 09:56 RBC Morphology Normal 10/16/17 09:56 Dimorphic RBCs Not Reportable 10/16/17 09:56 Polychromasia Not Reportable 10/16/17 09:56 Hypochromasia Not Reportable 10/16/17 09:56 Poikilocytosis Not Reportable 10/16/17 09:56 Anisocytosis Not Reportable 10/16/17 09:56 Microcytosis Not Reportable 10/16/17 09:56 Macrocytosis Not Reportable 10/16/17 09:56 Spherocytes Not Reportable 10/16/17 09:56 Pappenheimer Bodies Not Reportable 10/16/17 09:56 Sickle Cells Not Reportable 10/16/17 09:56 Target Cells Not Reportable 10/16/17 09:56 Tear Drop Cells Not Reportable 10/16/17 09:56 Ovalocytes Not Reportable 10/16/17 09:56 Helmet Cells Not Reportable 10/16/17 09:56 [place] Bodies Not Reportable 10/16/17 09:56 [place] Rings Not Reportable 10/16/17 09:56 Dianne Cells Not Reportable 10/16/17 09:56 Bite Cells Not Reportable 10/16/17 09:56 Crenated Cell Not Reportable 10/16/17 09:56 Elliptocytes Not Reportable 10/16/17 09:56 Acanthocytes (Spur) Not Reportable 10/16/17 09:56 Rouleaux Not Reportable 10/16/17 09:56 Hemoglobin C Crystals Not Reportable 10/16/17 09:56 Schistocytes Not Reportable 10/16/17 09:56 Malaria parasites Not Reportable 10/16/17 09:56 [place]anda Bodies Not Reportable 10/16/17 09:56 Hem Pathologist Commnt No 10/16/17 09:56 PT 14.7 Sec. (12.2-14.9) 10/23/17 00:14 INR 1.09 (0.87-1.13) 10/23/17 00:14 APTT 31.5 Sec. (24.2-36.6) 10/20/17 04:39 POC ABG pH 7.443 (7.35-7.45) 10/16/17 10:38 POC ABG pCO2 33.3 (35-45) L 10/16/17 10:38 POC ABG pO2 87 (80-105) 10/16/17 10:38 POC ABG HCO3 22.8 10/16/17 10:38 POC ABG Total CO2 24 10/16/17 10:38 POC ABG O2 Sat 97 10/16/17 10:38 POC ABG Base Excess -1 10/16/17 10:38 VBG pH 7.434 (7.320-7.420) H 10/16/17 09:56 FiO2 2.5 % 10/16/17 10:38 Sodium 139 mmol/L (137-145) 10/23/17 05:27 Potassium 3.9 mmol/L (3.6-5.0) 10/23/17 05:27 Chloride 104.7 mmol/L (98-107) 10/23/17 05:27 Carbon Dioxide 25 mmol/L (22-30) 10/23/17 05:27 Anion Gap 13 mmol/L 10/23/17 05:27 BUN 11 mg/dL (9-20) 10/23/17 05:27 Creatinine 0.7 mg/dL (0.8-1.5) L 10/23/17 05:27 Estimated GFR > 60 ml/min 10/23/17 05:27 BUN/Creatinine Ratio 16 % 10/23/17 05:27 Glucose 105 mg/dL (75-100) H 10/23/17 05:27 POC Glucose 122 (70-105) H 10/23/17 06:16 Lactic Acid 1.60 mmol/L (0.7-2.0) 10/17/17 07:49 Calcium 8.1 mg/dL (8.4-10.2) L 10/23/17 05:27 Magnesium 1.90 mg/dL (1.7-2.3) 10/22/17 04:50 Total Bilirubin 1.40 mg/dL (0.1-1.2) H 10/20/17 04:39 AST 110 units/L (5-40) H 10/20/17 04:39 ALT 64 units/L (7-56) H 10/20/17 04:39 Alkaline Phosphatase 58 units/L (35-129) 10/20/17 04:39 Total Protein 5.0 g/dL (6.3-8.2) L 10/20/17 04:39 Albumin 2.6 g/dL (3.9-5) L 10/20/17 04:39 Albumin/Globulin Ratio 1.1 % 10/20/17 04:39 TSH 4.780 mlU/mL (0.270-4.200) H 10/16/17 09:56 Urine Color Ana (Yellow) 10/16/17 11:30 Urine Turbidity Clear (Clear) 10/16/17 11:30 Urine pH 5.0 (5.0-7.0) 10/16/17 11:30 Ur Specific [place] 1.026 (1.003-1.030) 10/16/17 11:30 Urine Protein 100 mg/dl mg/dL (Negative) 10/16/17 11:30 Urine Glucose (UA) Neg mg/dL (Negative) 10/16/17 11:30 Urine Ketones Tr mg/dL (Negative) 10/16/17 11:30 Urine Blood Lg (Negative) 10/16/17 11:30 Urine Nitrite Neg (Negative) 10/16/17 11:30 Urine Bilirubin Neg (Negative) 10/16/17 11:30 Urine Urobilinogen 2.0 mg/dL (<2.0) 10/16/17 11:30 Ur Leukocyte Esterase Neg (Negative) 10/16/17 11:30 Urine WBC (Auto) 10.0 /HPF (0.0-6.0) H 10/16/17 11:30 Urine RBC (Auto) 14.0 /HPF (0.0-6.0) 10/16/17 11:30 U Epithel Cells (Auto) 2.0 /HPF (0-13.0) 10/16/17 11:30 Urine Bacteria (Auto) 1+ /HPF (Negative) 10/16/17 11:30 Hyaline Casts 3 /LPF 10/16/17 11:30 Urine Mucus 2+ /HPF 10/16/17 11:30 Salicylates < 0.3 mg/dL (2.8-20.0) L 10/16/17 09:56 Urine Opiates Screen Presumptive negative 10/16/17 11:30 Urine Methadone Screen Presumptive negative 10/16/17 11:30 Acetaminophen < 15.0 ug/mL (10.0-30.0) 10/16/17 09:56 Ur Barbiturates Screen Presumptive negative 10/16/17 11:30 Valproic Acid 20.4 ug/mL (50-100) L 10/19/17 09:24 Ur Phencyclidine Scrn Presumptive negative 10/16/17 11:30 Ur Amphetamines Screen Presumptive negative 10/16/17 11:30 U Benzodiazepines Scrn Presumptive negative 10/16/17 11:30 Urine Cocaine Screen Presumptive negative 10/16/17 11:30 U Marijuana (THC) Screen Presumptive negative 10/16/17 11:30 Drugs of Abuse Note Disclamer 10/16/17 11:30 Plasma/Serum Alcohol < 0.01 gm% (0-0.07) 10/16/17 09:56
[2017-10-23] MEDS: LEVAQUIN 750MG/150ML 750 MG/150 ML BAG IV SCH (17:07)
[2017-10-23] MEDS ORDERED: TYLENOL PO PRN (22:00)
[2017-10-23] MEDS: ARICEPT PO SCH (22:46)
[2017-10-24] MEDS: SYNTHROID PO SCH (06:04)
[2017-10-24] MEDS: ZETIA PO SCH (09:56)
[2017-10-24] MEDS: SYMMETREL PO SCH ×2 (09:56→21:30)
[2017-10-24] MEDS: SINGULAIR PO SCH (09:56)
[2017-10-24] MEDS: HALFPRIN EC PO SCH (09:56)
[2017-10-24] MEDS: VITAMIN D3 PO SCH (09:56)
--- NOTE | 2017-10-24 12:11 | Gastroenterology Progress Note ---
Assessment and Plan oropharyngeal dysphagia - s/p peg tube yesterday, external bumper loosened at bedside. cont post peg care daily/abd binder on at all times. tube feeds per nutrition recommendations. Will sign off, please call as needed or with questions. Subjective Date of service: 10/24/17 Principal diagnosis: oropharyngeal dysphagia, AMS Interval history: pt tolerating tube feeds. no events overnight. Objective - Constitutional Vitals: Temp Pulse Resp BP Pulse Ox 98.1 F 89 20 105/62 97 10/24/17 08:18 10/24/17 08:18 10/24/17 08:18 10/24/17 08:18 10/24/17 08:18 General appearance: no acute distress, other (somnolent/arousable) - EENT Eyes: PERRL - Respiratory Respiratory effort: normal Respiratory: bilateral: CTA - Cardiovascular Rhythm: regular Heart Sounds: Present: S1 & S2 - Gastrointestinal General gastrointestinal: Present: soft, non-tender, non-distended, other (peg tube site c/d/i) - Labs CBC & Chem 7: 10/22/17 04:50 10/23/17 05:27 Labs: Laboratory Results - last 24 hr 10/23/17 10/23/17 10/24/17 12:32 18:50 00:53 POC Glucose 135 H 94 116 H 10/24/17 06:06 POC Glucose 127 H
--- NOTE | 2017-10-24 15:11 | Progress Note ---
Assessment and Plan Assessment and plan: --dysphagia s/p PEG placement Continue tube feedings per protocol, supportive care, aspiration precautions --lactic acidosis; corrected --Aspiration pneumonia symptoms significantly improved Continue antibiotics, follow cultures --Metabolic encephalopathy; neurochecks, mild improvement --Hypernatremia; corrected --Leukocytosis; ; resolved --Dementia; supportive care --Right hip pain; x-ray suspicion joint effusion, orthopedic advised physical therapy as tolerated --Transaminitis; trending down, --Acute renal failure; due to ATN, resolved --H/O schizophrenia, recurrent psych medications, psych evaluation and recommendations --DVT prophylaxis; SCDs --Psych removed 1013, okay to discharge --DC planning. Case management possible placement to a SNF closer to home --Full CODE STATUS Plan of care discussed with the family member at the bedside History Interval history: Since seen and examined medical records reviewed No new events reported s/p PEG placement, tolerating PEG feeds Psych has removed 1013 Patient is comfortable in no new complaints is at the bedside Hospitalist Physical - Constitutional Vitals: Temp Pulse Resp BP Pulse Ox 98.1 F 89 20 105/62 97 10/24/17 08:18 10/24/17 08:18 10/24/17 08:18 10/24/17 08:18 10/24/17 08:18 General appearance: Present: no acute distress, cachectic, other (dehydrated) - EENT Eyes: Present: PERRL, EOM intact - Neck Neck: Present: supple, normal ROM - Respiratory Respiratory effort: normal Respiratory: bilateral: diminished, rales, wheezing, negative: rhonchi - Cardiovascular Rhythm: regular Heart Sounds: Present: S1 & S2 - Extremities Extremities: no ischemia, pulses intact - Abdominal General gastrointestinal: soft, non-tender, non-distended, normal bowel sounds - Integumentary Integumentary: Present: clear, warm - Psychiatric Psychiatric: appropriate mood/affect, cooperative - Neurologic Neurologic: CNII-XII intact, moves all extremities Results - Labs CBC & Chem 7: 10/22/17 04:50 10/23/17 05:27 Labs: Laboratory Last Values WBC 7.4 K/mm3 (4.5-11.0) 10/22/17 04:50 RBC 4.21 M/mm3 (3.65-5.03) 10/22/17 04:50 Hgb 13.1 gm/dl (11.8-15.2) 10/22/17 04:50 Hct 38.4 % (35.5-45.6) 10/22/17 04:50 MCV 91 fl (84-94) 10/22/17 04:50 MCH 31 pg (28-32) 10/22/17 04:50 MCHC 34 % (32-34) 10/22/17 04:50 RDW 14.1 % (13.2-15.2) 10/22/17 04:50 Plt Count 209 K/mm3 (140-440) 10/22/17 04:50 Lymph % (Auto) 18.4 % (13.4-35.0) 10/22/17 04:50 [place] % (Auto) 10.1 % (0.0-7.3) H 10/22/17 04:50 Eos % (Auto) 6.4 % (0.0-4.3) H 10/22/17 04:50 Baso % (Auto) 0.5 % (0.0-1.8) 10/22/17 04:50 Lymph # 1.4 K/mm3 (1.2-5.4) 10/22/17 04:50 [place] # 0.7 K/mm3 (0.0-0.8) 10/22/17 04:50 Eos # 0.5 K/mm3 (0.0-0.4) H 10/22/17 04:50 Baso # 0.0 K/mm3 (0.0-0.1) 10/22/17 04:50 Add Manual Diff Complete 10/16/17 09:56 Total Counted 100 10/16/17 09:56 Seg Neutrophils % 64.6 % (40.0-70.0) 10/22/17 04:50 Seg Neuts % (Manual) 80.0 % (40.0-70.0) H 10/16/17 09:56 Band Neutrophils % 0 % 10/16/17 09:56 Lymphocytes % (Manual) 6.0 % (13.4-35.0) L 10/16/17 09:56 Reactive Lymphs % (Man) 0 % 10/16/17 09:56 Monocytes % (Manual) 14.0 % (0.0-7.3) H 10/16/17 09:56 Eosinophils % (Manual) 0 % (0.0-4.3) 10/16/17 09:56 Basophils % (Manual) 0 % (0.0-1.8) 10/16/17 09:56 Metamyelocytes % 0 % 10/16/17 09:56 Myelocytes % 0 % 10/16/17 09:56 Promyelocytes % 0 % 10/16/17 09:56 Blast Cells % 0 % 10/16/17 09:56 Nucleated RBC % Not Reportable 10/16/17 09:56 Seg Neutrophils # 4.8 K/mm3 (1.8-7.7) 10/22/17 04:50 Seg Neutrophils # Man 16.5 K/mm3 (1.8-7.7) H 10/16/17 09:56 Band Neutrophils # 0.0 K/mm3 10/16/17 09:56 Lymphocytes # (Manual) 1.2 K/mm3 (1.2-5.4) 10/16/17 09:56 Abs React Lymphs (Man) 0.0 K/mm3 10/16/17 09:56 Monocytes # (Manual) 2.9 K/mm3 (0.0-0.8) H 10/16/17 09:56 Eosinophils # (Manual) 0.0 K/mm3 (0.0-0.4) 10/16/17 09:56 Basophils # (Manual) 0.0 K/mm3 (0.0-0.1) 10/16/17 09:56 Metamyelocytes # 0.0 K/mm3 10/16/17 09:56 Myelocytes # 0.0 K/mm3 10/16/17 09:56 Promyelocytes # 0.0 K/mm3 10/16/17 09:56 Blast Cells # 0.0 K/mm3 10/16/17 09:56 WBC Morphology Not Reportable 10/16/17 09:56 Hypersegmented Neuts Not Reportable 10/16/17 09:56 Hyposegmented Neuts Not Reportable 10/16/17 09:56 Hypogranular Neuts Not Reportable 10/16/17 09:56 Smudge Cells Not Reportable 10/16/17 09:56 Toxic Granulation Not Reportable 10/16/17 09:56 Toxic Vacuolation Not Reportable 10/16/17 09:56 Dohle Bodies Not Reportable 10/16/17 09:56 Pelger-Huet Anomaly Not Reportable 10/16/17 09:56 Usman Rods Not Reportable 10/16/17 09:56 Platelet Estimate Consistent w auto 10/16/17 09:56 Clumped Platelets Not Reportable 10/16/17 09:56 Plt Clumps, EDTA Not Reportable 10/16/17 09:56 Large Platelets Not Reportable 10/16/17 09:56 Giant Platelets Not Reportable 10/16/17 09:56 Platelet Satelliting Not Reportable 10/16/17 09:56 Plt Morphology Comment Not Reportable 10/16/17 09:56 RBC Morphology Normal 10/16/17 09:56 Dimorphic RBCs Not Reportable 10/16/17 09:56 Polychromasia Not Reportable 10/16/17 09:56 Hypochromasia Not Reportable 10/16/17 09:56 Poikilocytosis Not Reportable 10/16/17 09:56 Anisocytosis Not Reportable 10/16/17 09:56 Microcytosis Not Reportable 10/16/17 09:56 Macrocytosis Not Reportable 10/16/17 09:56 Spherocytes Not Reportable 10/16/17 09:56 Pappenheimer Bodies Not Reportable 10/16/17 09:56 Sickle Cells Not Reportable 10/16/17 09:56 Target Cells Not Reportable 10/16/17 09:56 Tear Drop Cells Not Reportable 10/16/17 09:56 Ovalocytes Not Reportable 10/16/17 09:56 Helmet Cells Not Reportable 10/16/17 09:56 [place] Bodies Not Reportable 10/16/17 09:56 [place] Rings Not Reportable 10/16/17 09:56 Dianne Cells Not Reportable 10/16/17 09:56 Bite Cells Not Reportable 10/16/17 09:56 Crenated Cell Not Reportable 10/16/17 09:56 Elliptocytes Not Reportable 10/16/17 09:56 Acanthocytes (Spur) Not Reportable 10/16/17 09:56 Rouleaux Not Reportable 10/16/17 09:56 Hemoglobin C Crystals Not Reportable 10/16/17 09:56 Schistocytes Not Reportable 10/16/17 09:56 Malaria parasites Not Reportable 10/16/17 09:56 Tawanda Bodies Not Reportable 10/16/17 09:56 Hem Pathologist Commnt No 10/16/17 09:56 PT 14.7 Sec. (12.2-14.9) 10/23/17 00:14 INR 1.09 (0.87-1.13) 10/23/17 00:14 APTT 31.5 Sec. (24.2-36.6) 10/20/17 04:39 POC ABG pH 7.443 (7.35-7.45) 10/16/17 10:38 POC ABG pCO2 33.3 (35-45) L 10/16/17 10:38 POC ABG pO2 87 (80-105) 10/16/17 10:38 POC ABG HCO3 22.8 10/16/17 10:38 POC ABG Total CO2 24 10/16/17 10:38 POC ABG O2 Sat 97 10/16/17 10:38 POC ABG Base Excess -1 10/16/17 10:38 VBG pH 7.434 (7.320-7.420) H 10/16/17 09:56 FiO2 2.5 % 10/16/17 10:38 Sodium 139 mmol/L (137-145) 10/23/17 05:27 Potassium 3.9 mmol/L (3.6-5.0) 10/23/17 05:27 Chloride 104.7 mmol/L (98-107) 10/23/17 05:27 Carbon Dioxide 25 mmol/L (22-30) 10/23/17 05:27 Anion Gap 13 mmol/L 10/23/17 05:27 BUN 11 mg/dL (9-20) 10/23/17 05:27 Creatinine 0.7 mg/dL (0.8-1.5) L 10/23/17 05:27 Estimated GFR > 60 ml/min 10/23/17 05:27 BUN/Creatinine Ratio 16 % 10/23/17 05:27 Glucose 105 mg/dL (75-100) H 10/23/17 05:27 POC Glucose 110 (70-105) H 10/24/17 12:55 Lactic Acid 1.60 mmol/L (0.7-2.0) 10/17/17 07:49 Calcium 8.1 mg/dL (8.4-10.2) L 10/23/17 05:27 Magnesium 1.90 mg/dL (1.7-2.3) 10/22/17 04:50 Total Bilirubin 1.40 mg/dL (0.1-1.2) H 10/20/17 04:39 AST 110 units/L (5-40) H 10/20/17 04:39 ALT 64 units/L (7-56) H 10/20/17 04:39 Alkaline Phosphatase 58 units/L (35-129) 10/20/17 04:39 Total Protein 5.0 g/dL (6.3-8.2) L 10/20/17 04:39 Albumin 2.6 g/dL (3.9-5) L 10/20/17 04:39 Albumin/Globulin Ratio 1.1 % 10/20/17 04:39 TSH 4.780 mlU/mL (0.270-4.200) H 10/16/17 09:56 Urine Color Ana (Yellow) 10/16/17 11:30 Urine Turbidity Clear (Clear) 10/16/17 11:30 Urine pH 5.0 (5.0-7.0) 10/16/17 11:30 Ur Specific [place] 1.026 (1.003-1.030) 10/16/17 11:30 Urine Protein 100 mg/dl mg/dL (Negative) 10/16/17 11:30 Urine Glucose (UA) Neg mg/dL (Negative) 10/16/17 11:30 Urine Ketones Tr mg/dL (Negative) 10/16/17 11:30 Urine Blood Lg (Negative) 10/16/17 11:30 Urine Nitrite Neg (Negative) 10/16/17 11:30 Urine Bilirubin Neg (Negative) 10/16/17 11:30 Urine Urobilinogen 2.0 mg/dL (<2.0) 10/16/17 11:30 Ur Leukocyte Esterase Neg (Negative) 10/16/17 11:30 Urine WBC (Auto) 10.0 /HPF (0.0-6.0) H 10/16/17 11:30 Urine RBC (Auto) 14.0 /HPF (0.0-6.0) 10/16/17 11:30 U Epithel Cells (Auto) 2.0 /HPF (0-13.0) 10/16/17 11:30 Urine Bacteria (Auto) 1+ /HPF (Negative) 10/16/17 11:30 Hyaline Casts 3 /LPF 10/16/17 11:30 Urine Mucus 2+ /HPF 10/16/17 11:30 Salicylates < 0.3 mg/dL (2.8-20.0) L 10/16/17 09:56 Urine Opiates Screen Presumptive negative 10/16/17 11:30 Urine Methadone Screen Presumptive negative 10/16/17 11:30 Acetaminophen < 15.0 ug/mL (10.0-30.0) 10/16/17 09:56 Ur Barbiturates Screen Presumptive negative 10/16/17 11:30 Valproic Acid 20.4 ug/mL (50-100) L 10/19/17 09:24 Ur Phencyclidine Scrn Presumptive negative 10/16/17 11:30 Ur Amphetamines Screen Presumptive negative 10/16/17 11:30 U Benzodiazepines Scrn Presumptive negative 10/16/17 11:30 Urine Cocaine Screen Presumptive negative 10/16/17 11:30 U Marijuana (THC) Screen Presumptive negative 10/16/17 11:30 Drugs of Abuse Note Disclamer 10/16/17 11:30 Plasma/Serum Alcohol < 0.01 gm% (0-0.07) 10/16/17 09:56
[2017-10-24] MEDS: COLACE PO SCH ×2 (17:43→21:29)
[2017-10-24] MEDS: LEVAQUIN 750MG/150ML 750 MG/150 ML BAG IV SCH (17:44)
[2017-10-24] MEDS: ARICEPT PO SCH (21:30)
[2017-10-25] MEDS: D5/0.45NS 1,000 ML IV SCH ×2 (00:30→17:24)
[2017-10-25 04:51] LABS: Basophils % (Auto) 0.6 % (0.0-1.8); Eosinophils % (Auto) 4.3 % (0.0-4.3); Hematocrit 37.9 % (35.5-45.6); Hemoglobin 13.3 gm/dl (11.8-15.2); Mean Corpuscular HGB Conc 35 % (32-34); Mean Corpuscular Hemoglobin 31 pg (28-32); Mean Corpuscular Volume 89 fl (84-94); Platelet Count 239 K/mm3 (140-440); Red Blood Count 4.25 M/mm3 (3.65-5.03); Red Cell Distribution Width 14.6 % (13.2-15.2); White Blood Count 7.8 K/mm3 (4.5-11.0)
[2017-10-25 05:37] LABS: Alanine Aminotransferase 24 units/L (7-56); Albumin 2.5 g/dL (3.9-5); Albumin/Globulin Ratio 0.8 %; Alkaline Phosphatase 68 units/L (35-129); Anion Gap 16 mmol/L; BUN/Creatinine Ratio 18; Blood Urea Nitrogen 11 mg/dL (9-20); Calcium 7.9 mg/dL (8.4-10.2); Carbon Dioxide 25 mmol/L (22-30); Chloride 103.3 mmol/L (98-107); Glucose 128 mg/dL (75-100); Potassium 3.9 mmol/L (3.6-5.0); Sodium 140 mmol/L (137-145); Total Protein 5.6 g/dL (6.3-8.2)
[2017-10-25 05:40] LABS: Bilirubin,Direct < 0.2 mg/dL (0-0.2)
[2017-10-25] MEDS: SYNTHROID PO SCH (06:31)
--- NOTE | 2017-10-25 09:34 | Discharge Summary ---
Providers - Providers Date of Admission: 10/16/17 13:39 Date of discharge: 10/25/17 Attending physician: LATANYA RAO 10/17/17 15:05 psychiatry consult [Consult to Mental Health] [CONS] Routine Reason For Exam: Pt from [facility]/1013/schizophrenia Place consult to:: calin Notified:: yes Phone number called:: [phone] Was contact made?: Yes If yes, spoke with:: josias Tello called:: 08:15 Comment:: hilary 10/18/17 07:50 Consult to Dietitian/Nutrition [CONS] Routine Physician Instructions: Reason For Exam: Reason for Consult: Poor oral intake 10/18/17 08:35 Speech Therapy Evaluation and Treat [CONS] Routine Reason For Exam: dysphagia/ swallow eval 10/18/17 09:38 Physical Therapy Evaluation and Treat [CONS] Routine Comment: Reason For Exam: Debility 10/19/17 14:18 Consult to Physician [CONS] Routine Consulting Provider: KEYLA KENT Reason For Exam: Rt hip pain/h/o fall/ Rt hip joint effusion Place consult to:: Notified:: Phone number called:: [phone] Was contact made?: Yes If yes, spoke with:: Time called:: 15:09 Comment:: ELLEN 10/19/17 19:25 Consult to Physician [CONS] Routine Consulting Provider: LINN AVENDAÑO Reason For Exam: dysphagia/abnormal MBS/ For PEG Place consult to:: Notified:: Phone number called:: [phone] Was contact made?: Yes If yes, spoke with:: Time called:: 09:34 Comment:: ELLEN 10/20/17 13:52 Consult to Dietitian/Nutrition [CONS] Routine Physician Instructions: Reason For Exam: Reason for Consult: Write/Manage Tube Feeding 10/20/17 13:53 Consult to Dietitian/Nutrition [CONS] Routine Physician Instructions: Assess nutrtn needs, initiate, modify, manage TF Reason For Exam: Reason for Consult: Write/Manage Tube Feeding Reason for Consult: Write/Manage Tube Feeding 10/21/17 15:43 Consult to Physician [CONS] Routine Consulting Provider: BARRETT SNYDER Reason For Exam: unable to place [place]/need assistance Place consult to:: Notified:: Phone number called:: [phone] Was contact made?: Yes If yes, spoke with:: NUNO Time called:: 15:55 Comment:: ELLEN Primary care physician: WORK FROM HOME Hospitalization Condition: Stable Disposition: DC/[place]-06 HOME [facility]ER [facility] Time spent for discharge: 35 min Core Measure Documentation - Palliative Care Palliative Care/ Comfort Measures: Not Applicable - Core Measures Any of the following diagnoses?: none Exam - Constitutional Vitals: Temp Pulse Resp BP Pulse Ox 97.3 F L 102 H 20 140/53 91 10/25/17 04:13 10/25/17 04:54 10/25/17 04:13 10/25/17 04:13 10/25/17 04:54 General appearance: Present: no acute distress, cachectic - EENT Eyes: Present: PERRL, EOM intact - Neck Neck: Present: supple, normal ROM - Respiratory Respiratory effort: normal Respiratory: negative: rales, rhonchi, wheezing - Cardiovascular Rhythm: regular Heart Sounds: Present: S1 & S2 - Extremities Extremities: no ischemia, No edema - Abdominal General gastrointestinal: Present: soft, non-tender, non-distended, normal bowel sounds, other (PEG in place) - Integumentary Integumentary: Present: clear, warm - Musculoskeletal Musculoskeletal: generalized weakness - Psychiatric Psychiatric: cooperative, other (confused at times) - Neurologic Neurologic: moves all extremities Plan Activity: advance as tolerated, fall precautions Diet: other (tube feeds per protocol) Additional Instructions: Physical therapy, occupational therapy. f/u private psychiatrist/behavioral health in 1 week Follow up with: PRIMARY MD KARI [Primary Care Provider] - 3-5 Days BARRETT SNYDER MD [Staff Physician] - 7 Days
[2017-10-25] MEDS: HALFPRIN EC PO SCH (11:12)
[2017-10-25] MEDS: COLACE PO SCH ×2 (11:12→22:14)
[2017-10-25] MEDS: VITAMIN D3 PO SCH (11:13)
[2017-10-25] MEDS: SINGULAIR PO SCH (11:13)
[2017-10-25] MEDS: SYMMETREL PO SCH ×2 (11:13→22:15)
[2017-10-25] MEDS: ZETIA PO SCH (11:13)
[2017-10-25] MEDS: LEVAQUIN 750MG/150ML 750 MG/150 ML BAG IV SCH (17:22)
--- NOTE | 2017-10-25 18:53 | Progress Note ---
Assessment and Plan Assessment and plan: --dysphagia s/p PEG placement, continue tube feeding, aspiration precautions --lactic acidosis; resolved --Aspiration pneumonia; symptoms resolved total 10 days of antibiotics, --Metabolic encephalopathy; significantly improved --Hypernatremia; corrected --Dementia; supportive care --Right hip pain; x-ray suspicion joint effusion, orthopedic advised physical therapy as tolerated --Transaminitis; trending down, --Acute renal failure; due to ATN, resolved --H/O schizophrenia, recurrent psych medications, psych evaluation and recommendations --DVT prophylaxis; SCDs --Psych cleared for discharge and follow-up with psych upon discharge --DC planning. Case management possible placement to a SNF closer to home --Full CODE STATUS Plan of care discussed with the family member at the bedside Patient is medically stable for discharge Awaiting placement Plan of care discussed with the patient's family and case management History Interval history: Patient seen and evaluated medical records reviewed No new events reported by the nursing staff Awaiting placement DC planning per case management Patient is tolerating tube feeding, receiving physical therapy Vital signs reviewed stable Hospitalist Physical - Constitutional Vitals: Temp Pulse Resp BP Pulse Ox 98.1 F 81 18 115/58 96 10/25/17 15:20 10/25/17 15:20 10/25/17 15:20 10/25/17 15:20 10/25/17 15:20 General appearance: Present: no acute distress, cachectic, other (minimally communicative) - EENT Eyes: Present: PERRL, EOM intact - Neck Neck: Present: supple, normal ROM - Respiratory Respiratory effort: normal Respiratory: bilateral: diminished, negative: rales, rhonchi, wheezing - Cardiovascular Rhythm: regular Heart Sounds: Present: S1 & S2 - Extremities Extremities: no ischemia, No edema - Abdominal General gastrointestinal: soft, non-tender, non-distended, normal bowel sounds - Integumentary Integumentary: Present: clear, warm - Psychiatric Psychiatric: appropriate mood/affect, cooperative - Neurologic Neurologic: CNII-XII intact, moves all extremities Results - Labs CBC & Chem 7: 10/25/17 04:14 10/25/17 04:14 Labs: Laboratory Last Values WBC 7.8 K/mm3 (4.5-11.0) 10/25/17 04:14 RBC 4.25 M/mm3 (3.65-5.03) 10/25/17 04:14 Hgb 13.3 gm/dl (11.8-15.2) 10/25/17 04:14 Hct 37.9 % (35.5-45.6) 10/25/17 04:14 MCV 89 fl (84-94) 10/25/17 04:14 MCH 31 pg (28-32) 10/25/17 04:14 MCHC 35 % (32-34) H 10/25/17 04:14 RDW 14.6 % (13.2-15.2) 10/25/17 04:14 Plt Count 239 K/mm3 (140-440) 10/25/17 04:14 Lymph % (Auto) 14.4 % (13.4-35.0) 10/25/17 04:14 [place] % (Auto) 11.0 % (0.0-7.3) H 10/25/17 04:14 Eos % (Auto) 4.3 % (0.0-4.3) 10/25/17 04:14 Baso % (Auto) 0.6 % (0.0-1.8) 10/25/17 04:14 Lymph # 1.1 K/mm3 (1.2-5.4) L 10/25/17 04:14 [place] # 0.9 K/mm3 (0.0-0.8) H 10/25/17 04:14 Eos # 0.3 K/mm3 (0.0-0.4) 10/25/17 04:14 Baso # 0.0 K/mm3 (0.0-0.1) 10/25/17 04:14 Add Manual Diff Complete 10/16/17 09:56 Total Counted 100 10/16/17 09:56 Seg Neutrophils % 69.7 % (40.0-70.0) 10/25/17 04:14 Seg Neuts % (Manual) 80.0 % (40.0-70.0) H 10/16/17 09:56 Band Neutrophils % 0 % 10/16/17 09:56 Lymphocytes % (Manual) 6.0 % (13.4-35.0) L 10/16/17 09:56 Reactive Lymphs % (Man) 0 % 10/16/17 09:56 Monocytes % (Manual) 14.0 % (0.0-7.3) H 10/16/17 09:56 Eosinophils % (Manual) 0 % (0.0-4.3) 10/16/17 09:56 Basophils % (Manual) 0 % (0.0-1.8) 10/16/17 09:56 Metamyelocytes % 0 % 10/16/17 09:56 Myelocytes % 0 % 10/16/17 09:56 Promyelocytes % 0 % 10/16/17 09:56 Blast Cells % 0 % 10/16/17 09:56 Nucleated RBC % Not Reportable 10/16/17 09:56 Seg Neutrophils # 5.4 K/mm3 (1.8-7.7) 10/25/17 04:14 Seg Neutrophils # Man 16.5 K/mm3 (1.8-7.7) H 10/16/17 09:56 Band Neutrophils # 0.0 K/mm3 10/16/17 09:56 Lymphocytes # (Manual) 1.2 K/mm3 (1.2-5.4) 10/16/17 09:56 Abs React Lymphs (Man) 0.0 K/mm3 10/16/17 09:56 Monocytes # (Manual) 2.9 K/mm3 (0.0-0.8) H 10/16/17 09:56 Eosinophils # (Manual) 0.0 K/mm3 (0.0-0.4) 10/16/17 09:56 Basophils # (Manual) 0.0 K/mm3 (0.0-0.1) 10/16/17 09:56 Metamyelocytes # 0.0 K/mm3 10/16/17 09:56 Myelocytes # 0.0 K/mm3 10/16/17 09:56 Promyelocytes # 0.0 K/mm3 10/16/17 09:56 Blast Cells # 0.0 K/mm3 10/16/17 09:56 WBC Morphology Not Reportable 10/16/17 09:56 Hypersegmented Neuts Not Reportable 10/16/17 09:56 Hyposegmented Neuts Not Reportable 10/16/17 09:56 Hypogranular Neuts Not Reportable 10/16/17 09:56 Smudge Cells Not Reportable 10/16/17 09:56 Toxic Granulation Not Reportable 10/16/17 09:56 Toxic Vacuolation Not Reportable 10/16/17 09:56 Dohle Bodies Not Reportable 10/16/17 09:56 Pelger-Huet Anomaly Not Reportable 10/16/17 09:56 Usman Rods Not Reportable 10/16/17 09:56 Platelet Estimate Consistent w auto 10/16/17 09:56 Clumped Platelets Not Reportable 10/16/17 09:56 Plt Clumps, EDTA Not Reportable 10/16/17 09:56 Large Platelets Not Reportable 10/16/17 09:56 Giant Platelets Not Reportable 10/16/17 09:56 Platelet Satelliting Not Reportable 10/16/17 09:56 Plt Morphology Comment Not Reportable 10/16/17 09:56 RBC Morphology Normal 10/16/17 09:56 Dimorphic RBCs Not Reportable 10/16/17 09:56 Polychromasia Not Reportable 10/16/17 09:56 Hypochromasia Not Reportable 10/16/17 09:56 Poikilocytosis Not Reportable 10/16/17 09:56 Anisocytosis Not Reportable 10/16/17 09:56 Microcytosis Not Reportable 10/16/17 09:56 Macrocytosis Not Reportable 10/16/17 09:56 Spherocytes Not Reportable 10/16/17 09:56 Pappenheimer Bodies Not Reportable 10/16/17 09:56 Sickle Cells Not Reportable 10/16/17 09:56 Target Cells Not Reportable 10/16/17 09:56 Tear Drop Cells Not Reportable 10/16/17 09:56 Ovalocytes Not Reportable 10/16/17 09:56 Helmet Cells Not Reportable 10/16/17 09:56 [place] Bodies Not Reportable 10/16/17 09:56 [place] Rings Not Reportable 10/16/17 09:56 [place] Cells Not Reportable 10/16/17 09:56 Bite Cells Not Reportable 10/16/17 09:56 Crenated Cell Not Reportable 10/16/17 09:56 Elliptocytes Not Reportable 10/16/17 09:56 Acanthocytes (Spur) Not Reportable 10/16/17 09:56 Rouleaux Not Reportable 10/16/17 09:56 Hemoglobin C Crystals Not Reportable 10/16/17 09:56 Schistocytes Not Reportable 10/16/17 09:56 Malaria parasites Not Reportable 10/16/17 09:56 Tawanda Bodies Not Reportable 10/16/17 09:56 Hem Pathologist Commnt No 10/16/17 09:56 PT 14.7 Sec. (12.2-14.9) 10/23/17 00:14 INR 1.09 (0.87-1.13) 10/23/17 00:14 APTT 31.5 Sec. (24.2-36.6) 10/20/17 04:39 POC ABG pH 7.443 (7.35-7.45) 10/16/17 10:38 POC ABG pCO2 33.3 (35-45) L 10/16/17 10:38 POC ABG pO2 87 (80-105) 10/16/17 10:38 POC ABG HCO3 22.8 10/16/17 10:38 POC ABG Total CO2 24 10/16/17 10:38 POC ABG O2 Sat 97 10/16/17 10:38 POC ABG Base Excess -1 10/16/17 10:38 VBG pH 7.434 (7.320-7.420) H 10/16/17 09:56 FiO2 2.5 % 10/16/17 10:38 Sodium 140 mmol/L (137-145) 10/25/17 04:14 Potassium 3.9 mmol/L (3.6-5.0) 10/25/17 04:14 Chloride 103.3 mmol/L (98-107) 10/25/17 04:14 Carbon Dioxide 25 mmol/L (22-30) 10/25/17 04:14 Anion Gap 16 mmol/L 10/25/17 04:14 BUN 11 mg/dL (9-20) 10/25/17 04:14 Creatinine 0.6 mg/dL (0.8-1.5) L 10/25/17 04:14 Estimated GFR > 60 ml/min 10/25/17 04:14 BUN/Creatinine Ratio 18 % 10/25/17 04:14 Glucose 128 mg/dL (75-100) H 10/25/17 04:14 POC Glucose 99 (70-105) 10/25/17 16:56 Lactic Acid 1.60 mmol/L (0.7-2.0) 10/17/17 07:49 Calcium 7.9 mg/dL (8.4-10.2) L 10/25/17 04:14 Phosphorus 3.10 mg/dL (2.5-4.5) 10/25/17 04:14 Magnesium 1.90 mg/dL (1.7-2.3) 10/25/17 04:14 Total Bilirubin 0.90 mg/dL (0.1-1.2) 10/25/17 04:14 Direct Bilirubin < 0.2 mg/dL (0-0.2) 10/25/17 04:14 AST 28 units/L (5-40) 10/25/17 04:14 ALT 24 units/L (7-56) 10/25/17 04:14 Alkaline Phosphatase 68 units/L (35-129) 10/25/17 04:14 Total Protein 5.6 g/dL (6.3-8.2) L 10/25/17 04:14 Albumin 2.5 g/dL (3.9-5) L 10/25/17 04:14 Albumin/Globulin Ratio 0.8 % 10/25/17 04:14 TSH 4.780 mlU/mL (0.270-4.200) H 10/16/17 09:56 Urine Color Ana (Yellow) 10/16/17 11:30 Urine Turbidity Clear (Clear) 10/16/17 11:30 Urine pH 5.0 (5.0-7.0) 10/16/17 11:30 Ur Specific [place] 1.026 (1.003-1.030) 10/16/17 11:30 Urine Protein 100 mg/dl mg/dL (Negative) 10/16/17 11:30 Urine Glucose (UA) Neg mg/dL (Negative) 10/16/17 11:30 Urine Ketones Tr mg/dL (Negative) 10/16/17 11:30 Urine Blood Lg (Negative) 10/16/17 11:30 Urine Nitrite Neg (Negative) 10/16/17 11:30 Urine Bilirubin Neg (Negative) 10/16/17 11:30 Urine Urobilinogen 2.0 mg/dL (<2.0) 10/16/17 11:30 Ur Leukocyte Esterase Neg (Negative) 10/16/17 11:30 Urine WBC (Auto) 10.0 /HPF (0.0-6.0) H 10/16/17 11:30 Urine RBC (Auto) 14.0 /HPF (0.0-6.0) 10/16/17 11:30 U Epithel Cells (Auto) 2.0 /HPF (0-13.0) 10/16/17 11:30 Urine Bacteria (Auto) 1+ /HPF (Negative) 10/16/17 11:30 Hyaline Casts 3 /LPF 10/16/17 11:30 Urine Mucus 2+ /HPF 10/16/17 11:30 Salicylates < 0.3 mg/dL (2.8-20.0) L 10/16/17 09:56 Urine Opiates Screen Presumptive negative 10/16/17 11:30 Urine Methadone Screen Presumptive negative 10/16/17 11:30 Acetaminophen < 15.0 ug/mL (10.0-30.0) 10/16/17 09:56 Ur Barbiturates Screen Presumptive negative 10/16/17 11:30 Valproic Acid 20.4 ug/mL (50-100) L 10/19/17 09:24 Ur Phencyclidine Scrn Presumptive negative 10/16/17 11:30 Ur Amphetamines Screen Presumptive negative 10/16/17 11:30 U Benzodiazepines Scrn Presumptive negative 10/16/17 11:30 Urine Cocaine Screen Presumptive negative 10/16/17 11:30 U Marijuana (THC) Screen Presumptive negative 10/16/17 11:30 Drugs of Abuse Note Disclamer 10/16/17 11:30 Plasma/Serum Alcohol < 0.01 gm% (0-0.07) 10/16/17 09:56
[2017-10-25] MEDS: ARICEPT PO SCH (22:14)
[2017-10-26] MEDS: D5/0.45NS 1,000 ML IV SCH (05:55)
[2017-10-26] MEDS: SYNTHROID PO SCH (05:55)
[2017-10-26 08:19] VITALS: BP 117/66
== END 2017-10-26 09:45 | DRG 871 ==
LOC: ED 09:12 → 3A 13:39 → 2B-ACE 22:13
PROVIDERS: ADMIT Internal Medicine; ATTEND Internal Medicine
PROC: 4A033R1 Measurement of Arterial Saturation, Peripheral, Percutaneous Approach (ICD-10-PCS; 2017-10-16)
PROC: 3E0234Z Introduction of Serum, Toxoid and Vaccine into Muscle, Percutaneous Approach (ICD-10-PCS; 2017-10-16)
PROC: 0DH68UZ Insertion of Feeding Device into Stomach, Via Natural or Artificial Opening Endoscopic (ICD-10-PCS; principal; 2017-10-23)
DX: A41.9 Sepsis, unspecified organism (principal); J69.0 Pneumonitis due to inhalation of food and vomit; N17.0 Acute kidney failure with tubular necrosis; G93.41 Metabolic encephalopathy; E87.0 Hyperosmolality and hypernatremia; I25.10 Atherosclerotic heart disease of native coronary artery without angina pectoris; K21.9 Gastro-esophageal reflux disease without esophagitis; E03.9 Hypothyroidism, unspecified; E78.00 Pure hypercholesterolemia, unspecified; K59.00 Constipation, unspecified; G31.83 Neurocognitive disorder with Lewy bodies; F02.80 Dementia in other diseases classified elsewhere, unspecified severity, without behavioral disturbance, psychotic disturbance, mood disturbance, and anxiety; E86.0 Dehydration; F20.9 Schizophrenia, unspecified; M25.461 Effusion, right knee; R13.12 Dysphagia, oropharyngeal phase; K31.7 Polyp of stomach and duodenum; K44.9 Diaphragmatic hernia without obstruction or gangrene; Z95.1 Presence of aortocoronary bypass graft; Z23 Encounter for immunization; Z87.820 Personal history of traumatic brain injury; Z88.8 Allergy status to other drugs, medicaments and biological substances; Z79.82 Long term (current) use of aspirin; Z79.899 Other long term (current) drug therapy
CPT/HCPCS: 36415; 70450; 71010; 72170; 74000; 74176; 74230; 80048; 80053; 80074; 80164; 80307; 80320; 81001; 82140; 82803; 82805; 82962; 83735; 84100; 84443; 85007; 85025; 85610; 85730; 87040; 87086; 90686; 90732; 93005; 93010; 94760; 96365; 96375; G0480; G8978-GP; G8979-GP; G8996-GN; G8997-GN; G8998-GN; J0295; J0690; J1630; J1885; J1956; J2543; J2704; J7030; J7040; J7070